=== PATIENT | female | born 1965 | race Caucasian/White ===

== ENCOUNTER → 2018-04-20 14:51 | Outpatient (CLI) | payer OTHER, SELFPAY ==
--- NOTE | 2018-04-20 14:53 | DI.MRI.S_ITS ---
PROCEDURE: MR CERVICAL SPINE WO CON INDICATIONS: Neck and upper back pain TECHNIQUE: Noncontrast sagittal T1 spin echo and T2 fast spin echo, sagittal STIR, foraminal oblique sagittal T2 fast spin echo, and axial gradient echo or T2 fast spin echo through the cervical spine. COMPARISON: None. FINDINGS: Image quality: Excellent. Alignment and Curvature: There is loss of normal cervical lordosis, mild grade 1 retrolisthesis of C6 on C7, and otherwise normal bony alignment. Bone Marrow: Marrow demonstrates normal overall signal. Mild reactive signal within the endplates adjacent to the C6-C7 intervertebral disc. Spinal Cord: Visualized spinal cord has normal size and signal. No cerebellar tonsillar herniation. Paraspinous Soft Tissues: No paravertebral masses. Prevertebral soft tissues are normal in thickness. C2-C3: Moderate disc desiccation. No significant canal stenosis. Mild right foraminal stenosis. No left foraminal stenosis. C3-C4: Moderate disc desiccation and mild diffuse disc bulge with superimposed broad-based central and right far lateral protrusion. Bilateral facet hypertrophy. Moderate right and mild left foraminal stenosis. C4-C5: Mild disc desiccation and diffuse disc bulge. Mild bilateral facet and uncovertebral hypertrophy. Mild canal stenosis. Moderate left and mild right foraminal stenosis. C5-C6: Moderate disc desiccation and mild diffuse disc bulge. Bilateral facet and uncovertebral hypertrophy. Mild canal stenosis. Mild foraminal stenosis bilaterally. C6-C7: Moderate disc height loss and desiccation, as well as moderate diffuse disc bulge/osteophyte. Bilateral moderate facet and uncovertebral hypertrophy. Moderate canal stenosis. Severe left and moderate right foraminal stenosis. C7-T1: Mild disc desiccation and diffuse disc bulge. Bilateral facet hypertrophy. Mild canal stenosis. No foraminal stenosis. IMPRESSION: 1. Multilevel degenerative disc and facet disease, as well as uncovertebral hypertrophy. 2. Multilevel canal stenoses, worst at C6-C7. 3. Multilevel foraminal stenoses, worst at C3-C4 on the left, and at C6-C7 left greater than right. Dictated by: Salome Benitez M.D. on 04/20/2018 at 16:59 Approved by: Salome Benitez M.D. on 04/20/2018 at 17:02
== END ==
PROVIDERS: PCP Family Medicine; Visit Provider Family Medicine
DX: M50.31 Other cervical disc degeneration, high cervical region (principal); M48.02 Spinal stenosis, cervical region; M54.6 Pain in thoracic spine
CPT/HCPCS: 72141

== ENCOUNTER → 2018-06-27 16:16 | Outpatient (CLI) | payer OTHER, SELFPAY | DX: Z23 Encounter for immunization (principal) | CPT/HCPCS: 90471; 90686 ==

== ENCOUNTER → 2018-09-28 09:35 | Outpatient (CLI) | payer OTHER, SELFPAY ==
[2018-09-28 10:18] LABS: Influenza A and B by PCR Rapid Negative (Negative)
== END ==
PROVIDERS: PCP Family Medicine; Visit Provider Family Medicine
DX: J06.9 Acute upper respiratory infection, unspecified (principal)
CPT/HCPCS: 87400

== ENCOUNTER → 2019-01-10 07:30 | Outpatient (CLI) | payer OTHER, SELFPAY ==
--- NOTE | 2019-01-10 | DI.MG.S_ITS ---
BILATERAL DIGITAL SCREENING MAMMOGRAM 3D/2D WITH CAD: 01/10/2019 CLINICAL: Routine screening. Family history of breast cancer. Comparison is made to exams dated: 01/05/2018 mammogram, 12/23/2016 mammogram, and 11/06/2015 mammogram - [facility]. The tissue of both breasts is heterogeneously dense. This may lower the sensitivity of mammography. Current study was also evaluated with a Computer Aided Detection (CAD) system. No significant masses, calcifications, or other findings are seen in either breast. There has been no significant interval change. IMPRESSION: NEGATIVE There is no mammographic evidence of malignancy. A 1 year screening mammogram is recommended. This exam was interpreted at Station ID: [id number]. NOTE: For mammograms, a report in lay terms will be sent to the patient. Approximately 15% of breast malignancies will not be visualized mammographically. In the management of a palpable breast mass, a negative mammogram must not discourage biopsy of a clinically suspicious lesion. Electronically Signed By: Mary ferrara/néstor:01/10/2019 11:42:05 letter sent: Normal Exam ACR BI-RADS Category 1: Negative 3341F
== END ==
PROVIDERS: PCP Family Medicine; Visit Provider Family Medicine
DX: Z12.31 Encounter for screening mammogram for malignant neoplasm of breast (principal)
CPT/HCPCS: 77063; 77067

== ENCOUNTER → 2019-07-03 11:28 | Outpatient (CLI) | payer OTHER, SELFPAY | PROVIDERS: PCP Family Medicine | DX: Z23 Encounter for immunization (principal) | CPT/HCPCS: 90471; 90686 ==

== ENCOUNTER → 2019-11-02 06:41 | Outpatient (CLI) | payer OTHER, SELFPAY ==
--- NOTE | 2019-11-02 06:42 | DI.CT.S_ITS ---
PROCEDURE: CT HEAD/BRAIN WO/W CON INDICATIONS: new onset head ach with pressure between eye TECHNIQUE: 4.5 mm thick angled axial sections acquired from the foramen magnum to the vertex before and after the administration of intravenous contrast, with coronal and sagittal reformats. For radiation dose reduction, the following was used: automated exposure control, adjustment of mA and/or kV according to patient size. COMPARISON: [facility], , CHEST 2 VIEW, 10/18/2014, 9:17. FINDINGS: Image quality: Excellent. CSF Spaces: Basal cisterns are patent. No extra-axial fluid collections. Ventricles are normal in size and shape. Brain: No midline shift. No intracranial bleeds or masses. No abnormal intracranial enhancement. Baires-white interface appears normal. Skull and face: Calvarium and visualized facial bones appear intact, without suspicious lesions. Sinuses: Visualized sinuses and mastoids are clear. IMPRESSION: Source of headache and pressure sensation is not identified, if unusual symptoms persist followup by a subsequent MR scanning to include intracranial MR angiogram may be warranted. Dictated by: Gregory Ramirez M.D. on 11/02/2019 at 8:46 Approved by: Gregory Ramirez M.D. on 11/02/2019 at 8:50
== END ==
PROVIDERS: PCP Family Medicine; Visit Provider Family Medicine
DX: R51 Headache (principal)
CPT/HCPCS: 70470; Q9967

== ENCOUNTER 2020-02-20 20:44 | Emergency (ER) | payer OTHER, SELFPAY ==
[2020-02-20 21:03] VITALS: BP 168/74; PULSE 72; RESP 16; TEMP 36.6; O2SAT 98; BMI 29.5
[2020-02-20] MEDS: LIDO 1%/SOD BICARB 8.4% (10ML) 10 ML SYRINGE INJ (21:24)
--- NOTE | 2020-02-20 21:39 | ED.SKABFB ---
HPI - Skin/Abscess/Foreign Bdy General Chief complaint: Skin/Abscess/Foreign Body Stated complaint: left arm infection Time Seen by Provider: 02/20/20 21:03 Source: patient Mode of arrival: Family Vehicle Limitations: no limitations History of Present Illness HPI narrative: 54-year-old woman who recently had a melanoma removed by a head athletic trainer/strength coach on her left arm. There is an approximately 5 cm nicely healing lesion with a bit of erythema at the distal portion of it. For the last 3 hours she has noticed increasing swelling and slight fluctuance and he can see small bit of the absorbable suture just under the skin surface. Related Data Home Medications Medication Instructions Recorded Confirmed MULTIVITAMIN (Multivitamin 0 PO Q DAY #0 05/01/07 01/02/20 -) CHOLECALCIFEROL (VITAMIN D) 2,000 units PO QDAY #0 11/01/12 01/02/20 Previous Rx's Medication Instructions Recorded estradiol 10 mcg vaginal tablet 10 mcg VAGINAL 2XW #24 tab 02/08/19 Allergies Allergy/AdvReac Type Severity Reaction Status Date / Time chlorhexidine [CHLORHEXIDINE] Allergy Intermediate RASH Verified 01/02/20 09:44 oxycodone [OXYCODONE] Allergy Intermediate NAUSEA/DIZZ Verified 01/02/20 09:44 INESS Review of Systems Review of Systems Narrative: Pertinent positive and negative findings as per HPI Remainder of review of systems is otherwise unremarkable for Constitutional: Fevers, chills, weakness CV: Chest pain, palpitations, dyspnea on exertion Respiratory: Cough, wheeze, dyspnea GI: Nausea, vomiting, diarrhea, Patient History Surgical History History of bilateral salpingo-oophorectomy (BSO) History of left salpingo-oophorectomy (Resolved 2008) History of spinal fusion (Resolved) Status post vaginal hysterectomy (Resolved) Social History marital status: Smoking Status: Never smoker alcohol intake: current substance use type: does not use Smoking Status: Never smoker alcohol intake frequency: 0-2 drinks per day Substance Use Type: does not use Exam Narrative Exam Narrative: General: Alert appropriate in no acute distress Respiratory: Able to speak in full sentences, no obvious respiratory distress Skin: No obvious rashes, warm and dry Neurologic: Grossly intact no obvious asymmetries or abnormalities Psych, appropriate insight and affect, cooperative Extremity: Nicely healing surgical site left upper arm with 3 mm of increasing erythema and fluctuance at the very distal end. No surrounding cellulitis Initial Vital Signs Initial Vital Signs: Vital Signs Temperature 97.8 F 02/20/20 21:03 Pulse Rate 72 02/20/20 21:03 Respiratory Rate 16 02/20/20 21:03 Blood Pressure 168/74 H 02/20/20 21:03 Pulse Oximetry 98 02/20/20 21:03 Procedures Abscess I/D I&D #1: Site: upper extremity Side (if applicable): left Local Anesthetic: lidocaine 1% and with bicarb Amount of anesthesia used (mL): 1 Technique: other (An 18 gauge needle was used to open the distal end of the prior surgical site. Small amount of suture that had not yet dissolved was removed and minor amount of purulent discharge was expressed) Amount of fluid expressed (mL): 1 Irrigation: No Packing used?: none Course Orders Ordered: Discontinued Medications Lidocaine/Sodium Bicarbonate (Buffered Lidocaine 10 Ml Syr) 10 ml INJ NOW ONE Stop: 02/20/20 21:14 Last Admin: 02/20/20 21:24 Dose: 10 ml [facility] Vital Signs Vital signs: Vital Signs - 8 hr 02/20/20 21:03 Temperature 97.8 F Pulse Rate 72 Respiratory Rate 16 Blood Pressure 168/74 H Pulse Oximetry 98 MDM - Skin/Abscess/Foreign Bdy Medical Records Attestation: I reviewed the patient's medical records. MDM Narrative Medical decision making narrative: Minor super in fissural infection at the distal end of melanoma excision site. Area is open small amount of material is expressed, small amount of suture material is removed patient tolerated procedure well no surrounding cellulitis and antibiotics are not felt to be appropriate in this situation. Patient is safe for home discharge Discharge Plan Departure Patient Disposition: Home Clinical Impression: Abscess of skin or subcutaneous tissue Qualifiers: Site of cutaneous abscess: extremity Site of cutaneous abscess of extremity: upper extremity Laterality: left Qualified Code(s): L02.414 - Cutaneous abscess of left upper limb Instructions: DI for Cellulitis -- Adult Activity Restrictions/Additional Instructions: Thank you for coming in The bottom end of your surgical site is beginning to develop a small infection around the bit of suture that is closer to the skin. We were able to anesthetize the area open the bottom end of the wound and take the small bit of suture out and get a minor amount of purulence drainage out as well. It looks much better after being opened up slightly. There is no cellulitis at this time. Believe it was a simple localized infection around that tiny bit of retained suture and should heal up nicely. The remainder of the wound is perfect. If you notice increasing redness, increasing drainage, increasing pain none of those would be expected and I would suggest you come back for further evaluation. I hope this heals up completely. I am glad the margins were small and there is no additional treatment that you need for this melanoma. Prescriptions: No Action MULTIVITAMIN (Multivitamin -) 0 PO Q DAY Qty: 0 RF: 0 CHOLECALCIFEROL (VITAMIN D) 2,000 units PO QDAY Qty: 0 RF: 0 estradiol [Vagifem] 10 mcg tablet 10 mcg Vaginal 2XW Qty: 24 RF: 3 Referrals: Saman Barry MD [Primary Care Provider] -
[2020-02-20 21:50] VITALS: BP 119/74; PULSE 78; RESP 15; O2SAT 99
== END 2020-02-20 21:51 | disposition home or self-care (01) ==
PROVIDERS: Emergency Provider Emergency Medicine; PCP Family Medicine
DX: L02.414 Cutaneous abscess of left upper limb (principal)
CPT/HCPCS: 10060; 99283

== ENCOUNTER → 2020-03-03 07:38 | Outpatient (CLI) | payer OTHER, SELFPAY ==
--- NOTE | 2020-03-03 | DI.MG.S_ITS ---
BILATERAL DIGITAL SCREENING MAMMOGRAM 3D/2D WITH CAD: 03/03/2020 CLINICAL: Routine screening. Family history of breast cancer. Comparison is made to exams dated: 01/10/2019 mammogram, 01/05/2018 mammogram, and 12/23/2016 mammogram - [facility]. The tissue of both breasts is heterogeneously dense. This may lower the sensitivity of mammography. Current study was also evaluated with a Computer Aided Detection (CAD) system. No significant masses, calcifications, or other findings are seen in either breast. There has been no significant interval change. IMPRESSION: NEGATIVE There is no mammographic evidence of malignancy. A 1 year screening mammogram is recommended. This exam was interpreted at Station ID: [id number]. NOTE: For mammograms, a report in lay terms will be sent to the patient. Approximately 15% of breast malignancies will not be visualized mammographically. In the management of a palpable breast mass, a negative mammogram must not discourage biopsy of a clinically suspicious lesion. Electronically Signed By: Garry rios/néstor:03/03/2020 08:32:38 letter sent: Normal Exam ACR BI-RADS Category 1: Negative 3341F
== END ==
PROVIDERS: PCP Family Medicine; Referring Provider Family Medicine; Visit Provider Family Medicine
DX: Z12.31 Encounter for screening mammogram for malignant neoplasm of breast (principal); Z80.3 Family history of malignant neoplasm of breast
CPT/HCPCS: 77063; 77067

== ENCOUNTER 2020-05-21 20:54 | Emergency (ER) | payer OTHER, SELFPAY ==
[2020-05-21 20:59] VITALS: BP 137/85; PULSE 87; RESP 22; TEMP 37.2; O2SAT 96
--- NOTE | 2020-05-21 21:18 | ED.GENADULT ---
HPI - General Adult General Chief complaint: Abdominal Pain Stated complaint: kidney pain Time Seen by Provider: 05/21/20 21:12 Source: patient Mode of arrival: Ambulatory Limitations: no limitations History of Present Illness HPI narrative: Patient is a 55-year-old female here for evaluation of left-sided flank/side pain. She states that the pain that brought her in today is been going on for the past 2 days however she has had similar pain however not as intense in the same area off and on for the past month. She does not know any specific incident that made her pain get worse. She has had a kidney stone in the past and she does state this feels somewhat like kidney stone. She has had some urinary urgency/frequency but no dysuria. No fevers. No vomiting. No rashes. She states the past 2 days her pain has been ?unrelenting ?states that normally she can rest in the symptoms improve over this is not happened during this timeframe. Related Data Home Medications Medication Instructions Recorded Confirmed MULTIVITAMIN (Multivitamin 0 PO Q DAY #0 05/01/07 01/02/20 -) CHOLECALCIFEROL (VITAMIN D) 2,000 units PO QDAY #0 11/01/12 01/02/20 Previous Rx's Medication Instructions Recorded estradiol 10 mcg vaginal tablet 10 mcg VAGINAL 2XW #24 tab 02/08/19 Allergies Allergy/AdvReac Type Severity Reaction Status Date / Time chlorhexidine [CHLORHEXIDINE] Allergy Intermediate RASH Verified 01/02/20 09:44 oxycodone [OXYCODONE] Allergy Intermediate NAUSEA/DIZZ Verified 01/02/20 09:44 INESS Review of Systems Constitutional Constitutional: Denies fever(s) Cardiovascular Cardiovascular: Denies chest pain and Denies dyspnea Respiratory Respiratory: Denies dyspnea Gastrointestinal Comments: Left-sided flank pain Genitourinary Genitourinary: Reports urinary urgency Genitourinary: Reports urinary urgency Musculoskeletal Comments: Left-sided flank pain Integumentary/Breasts Skin/Breast: Denies rash Neurologic Neurologic: Denies behavioral changes Psychiatric Psychiatric: Denies behavioral changes Hematologic/Lymphatic Comments: Not on anticoagulation Allergic/Immunologic Allergic/Immunologic: Denies urticaria Patient History Medical History Degenerative disc disease, cervical (Inactive) Kidney stones (Acute) Palpitations (12/06/11) Surgical History H/O melanoma excision (Inactive) History of bilateral salpingo-oophorectomy (BSO) History of left salpingo-oophorectomy (Resolved 2008) History of spinal fusion (Resolved) Status post vaginal hysterectomy (Resolved) Social History marital status: Smoking Status: Never smoker alcohol intake: current substance use type: does not use Smoking Status: Never smoker alcohol intake frequency: 0-2 drinks per day Substance Use Type: does not use Exam Initial Vital Signs Initial Vital Signs: Vital Signs Temperature 99.0 F 05/21/20 20:59 Pulse Rate 87 05/21/20 20:59 Respiratory Rate 22 05/21/20 20:59 Blood Pressure 137/85 05/21/20 20:59 Pulse Oximetry 96 05/21/20 20:59 Const General: cooperative and No comfortable (Uncomfortable) Limitations: mental status not altered HENMT Head: normal to inspection and normocephalic Resp Effort & Inspection: normal respiratory effort Cardio Rate: regular rate GI Inspection: non-distended Palpation: soft, No firm and No tender Back/Spine/Pelvis Back: No CVA tenderness Skin Lesions: no lesions Rashes: no rashes Neuro General: patient alert and patient awake Cognition: normal cognition Speech: speech normal Extrem General: normal to inspection Psych Appearance: grossly normal and well kempt Course Orders Ordered: ED Orders 05/21/20 21:09 Basic Metabolic Panel Stat Complete Blood Count AUTO DIFF Stat 05/21/20 21:20 CT kidney ureter bladder (KUB) Stat 05/21/20 22:19 Urine Microscopic Stat Discontinued Medications Hydrocodone Bitart/Acetaminophen (Vicodin 5/325 Prepack) 1 bottle MISC SEEINSTR ONE Stop: 05/21/20 22:40 Last Admin: 05/21/20 22:46 Dose: 1 bottle Documented by: FREDO Hydromorphone HCl (Dilaudid) 1 mg IV NOW ONE Stop: 05/21/20 21:20 Last Admin: 05/21/20 21:35 Dose: 1 mg Documented by: TAYLOR Ketorolac Tromethamine (Toradol) 30 mg IV NOW ONE Stop: 05/21/20 21:20 Last Admin: 05/21/20 21:34 Dose: 30 mg Documented by: TAYLOR Ondansetron HCl (Zofran) 4 mg IV NOW ONE Stop: 05/21/20 21:20 Last Admin: 05/21/20 21:35 Dose: 4 mg Documented by: TAYLOR Vital Signs Vital signs: Vital Signs - 8 hr 05/21/20 20:59 05/21/20 21:43 05/21/20 21:44 Temperature 99.0 F Pulse Rate 87 67 74 Respiratory Rate 22 Blood Pressure 137/85 131/76 Pulse Oximetry 96 94 94 05/21/20 22:04 05/21/20 22:30 Temperature Pulse Rate 77 67 Respiratory Rate Blood Pressure Pulse Oximetry 95 96 Medical Decision Making Lab Data Lab results reviewed: Yes I reviewed the patient's lab results. Result diagrams: 05/21/20 21:09 05/21/20 21:09 Labs: Lab Results 05/21/20 05/21/20 05/21/20 Range/Units 21:09 21:09 22:19 WBC 4.8 (4.5-11.0) X10^3/uL RBC 4.34 (4.0-5.2) X10^6/uL Hgb 13.7 (12.0-16.0) g/dL Hct 40.7 (36-46) % MCV 93.8 (80-100) fL MCH 31.6 (26-34) PG MCHC 33.7 (30-36) % RDW 13.6 (11.6-14.8) % Plt Count 200 (150-400) X10^3/uL Neut % (Auto) 49.4 L (50-75) % Lymph % (Auto) 40.0 (25-40) % [place] % (Auto) 7.8 (3-14) % Eos % (Auto) 2.2 (2-4) % Baso % (Auto) 0.6 (0-2) % Neut # (Auto) 2300 (1841-8237) /uL Lymph # (Auto) 1900 (0000-5942) /uL [place] # (Auto) 400 (0-900) /uL Eos # (Auto) 100 (0-450) /uL Baso # (Auto) 0 (0-100) /uL Sodium 136 L (137-145) mmol/L Potassium 4.1 (3.4-5.1) mmol/L Chloride 102 (98-107) mmol/L Carbon Dioxide 27 (22-32) mmol/L BUN 17 (7-17) mg/dL Creatinine 0.74 (0.52-1.04) mg/dL Estimated GFR > 60.0 (>60) mL/min BUN/Creatinine Ratio 23.0 H (6-22) Glucose 95 (70-100) mg/dL Calcium 9.5 (8.4-10.2) mg/dL Urine RBC None seen (0-5/HPF) Urine WBC 5-10/hpf H (0-5/HPF) Ur Squamous Epith Cells 5-10 /hpf H (0-5/HPF) Urine Bacteria None seen (None) Ur Culture Indicated? Cult not indicated Urine Dip Bedside Urine Glucose Negative Bedside Urine Bilirubin - Negative Bedside Urine Ketone + 15 Urine Specific [place] 1.015 Bedside Urine Occult Blood - Negative Bedside Urine pH 6.0 Bedside Urine Protein - Negative Bedside Urine Urobilinogen - Negative Bedside Urine Nitrite - Negative Bedside Urine Leukocytes + 70 Esterase Point of care testing: Urine Dip Bedside Urine Glucose Negative Bedside Urine Bilirubin - Negative Bedside Urine Ketone + 15 Urine Specific [place] 1.015 Bedside Urine Occult Blood - Negative Bedside Urine pH 6.0 Bedside Urine Protein - Negative Bedside Urine Urobilinogen - Negative Bedside Urine Nitrite - Negative Bedside Urine Leukocytes + [address] scan - abdomen/pelvis: Radiologist's Impression: [address] [address] [address] Scan Report Signed Patient: Radha Dickens [facility]#: [id number] : 1965Acct:[id number] Age/Sex: 55 / FDate of Service: 05/21/20 Loc: ED Accession Number: [id number] Procedure: CT kidney ureter bladder (KUB) Ordering Provider: Rainer Cunha D.O. PROCEDURE: CT KIDNEY URETER BLADDER (KUB) INDICATIONS: L ninfa pain concern for stone TECHNIQUE: Noncontrast 5 mm thick sections acquired from the diaphragms to the symphysis. 5 mm thick coronal and sagittal reformats were then performed. For radiation dose reduction, the following was used: automated exposure control, adjustment of mA and/or kV according to patient size. COMPARISON: None. FINDINGS: Image quality: Excellent. Lung bases: Bibasilar scarring/atelectasis is seen. Heart size is normal. Urinary system: Both kidneys are normal in size. No kidney stones. No hydronephrosis or perinephric fat stranding. Both ureters appear non-dilated throughout their expected courses. Tiny phleboliths are noted in bilateral lower pelvis. Bladder wall thickness is normal; no calcified bladder stones. Other solid organs: Liver is normal in size. 9 millimeter hypodensity is seen in left hepatic lobe and likely represent attic cysts. Gallbladder contains a 2.3 x 1.4 centimeter stone in its dependent portion. No gallbladder wall thickening or pericholecystic edema.. Pancreas is normal in contours. Spleen is normal in size. No adrenal nodules. Peritoneum and bowel: Unenhanced bowel loops demonstrate normal wall thickness and caliber. No free fluid or air. Small hiatal hernia is seen. Nodes and vessels: No retroperitoneal or mesenteric adenopathy by size criteria. Aorta and inferior vena cava are normal in caliber. Abdominal wall: No ventral hernias. Pelvis: No free pelvic fluid. No inguinal hernias or adenopathy. Bones: No suspicious bony lesions. No vertebral body compression fractures. Degenerative disc disease throughout lower thoracic and lumbar spine is seen. Mild to moderate levoscoliosis centered at L3-4 level is seen. IMPRESSION: 1. No renal stone or hydronephrosis. No gross abnormality is seen in bilateral ureters and urinary bladder. 2. No bowel obstruction. No bowel wall thickening. No free fluid or free air. 3. Suggestion of 9 mm left hepatic cyst. 4. Cholelithiasis, no CT evidence of acute cholecystitis. Dictated by: Vincent Valle M.D. on 05/21/2020 at 21:39 Approved by: Vincent Valle M.D. on 05/21/2020 at 21:43 MDM Narrative Medical decision making narrative: Has had a history of kidney stones and she states this feels like prior kidney stones however given the fact that the symptoms have been going on for the past several weeks with just worsened over the past couple days this does not entirely fit with a kidney stone type history. A CT scan was obtained which showed no acute pathology. No signs of surgical issues or infectious issues. Her urine is unremarkable. Low suspicion for pyelonephritis. Kidney functions unremarkable. Risk for large lytes are unremarkable. She has no skin changes concerning for zoster. I do suspect the symptoms are musculoskeletal in origin. No indication for admission or surgical or medical consultation. Will send home with symptom treatment. No indication for antibiotics. Patient was given return precautions. She expressed understanding and agreement. Discharge Plan Departure Patient Disposition: Home Clinical Impression: Acute left flank pain Discharge Date/Time: 05/21/20 22:53 Instructions: DI for Flank Pain Activity Restrictions/Additional Instructions: Take the medication as directed. You can also take ibuprofen and continue to use heat/ice as needed. Keep your scheduled follow-up appointment with your primary provider. Return to the emergency department for any new or worsening symptoms Prescriptions: No Action MULTIVITAMIN (Multivitamin -) 0 PO Q DAY Qty: 0 RF: 0 CHOLECALCIFEROL (VITAMIN D) 2,000 units PO QDAY Qty: 0 RF: 0 estradiol [Vagifem] 10 mcg tablet 10 mcg Vaginal 2XW Qty: 24 RF: 3 Referrals: Saman Barry MD [Primary Care Provider] -
--- NOTE | 2020-05-21 21:28 | PC.NURSE ---
States she can not urinate at this time.
[2020-05-21 21:30] LABS: Add Manual Diff / Slide Review NO; Basophils Absolute Auto 0 /uL (0-100); Basophils Percent Auto 0.6 % (0-2); Eosinophils Absolute Auto 100 /uL (0-450); Eosinophils Percent Auto 2.2 % (2-4); Hematocrit 40.7 % (36-46); Hemoglobin 13.7 g/dL (12.0-16.0); Lymphocytes Absolute Auto 1900 /uL (1100-4500); Mean Corpuscular HGB Conc 33.7 % (30-36); Mean Corpuscular Hemoglobin 31.6 PG (26-34); Mean Corpuscular Volume 93.8 fL (80-100); Monocytes Absolute Auto 400 /uL (0-900); Monocytes Percent Auto 7.8 % (3-14); Neutrophils Absolute Auto 2300 /uL (1500-7000); Neutrophils Percent Auto 49.4 % (50-75); Platelet Count 200 X10^3/uL (150-400); Red Blood Cell Count 4.34 X10^6/uL (4.0-5.2); Red Cell Distribution Width 13.6 % (11.6-14.8); White Blood Cell Count 4.8 X10^3/uL (4.5-11.0)
[2020-05-21 21:33] LABS: Blood Urea Nitrogen 17 mg/dL (7-17); Calcium 9.5 mg/dL (8.4-10.2); Carbon Dioxide 27 mmol/L (22-32); Chloride 102 mmol/L (98-107); Estimated Glomerular Filt Rate > 60.0 mL/min (>60); Glucose 95 mg/dL (70-100); HEMOLYSIS 28 (0-50); Potassium 4.1 mmol/L (3.4-5.1); Sodium 136 mmol/L (137-145)
[2020-05-21] MEDS: KETOROLAC 60 MG/2 ML VIAL 30 MG IV (21:34)
[2020-05-21] MEDS: ONDANSETRON 4 MG/2 ML INJ IV (21:35)
[2020-05-21] MEDS: HYDROMORPHONE 1 MG INJ IV (21:35)
[2020-05-21 21:43] VITALS: PULSE 67; O2SAT 94
[2020-05-21 21:44] VITALS: BP 131/76; PULSE 74; O2SAT 94
[2020-05-21 22:04] VITALS: PULSE 77; O2SAT 95
[2020-05-21 22:21] LABS: Bacteria Urine None Seen; RBC Urine None Seen (0-5/HPF)
[2020-05-21 22:28] LABS: WBC Urine 5-10/HPF (0-5/HPF)
[2020-05-21 22:29] LABS: Culture Indicated Urine Cult Not Indicated; Squamous Epithelial Cell Urine 5-10 /HPF (0-5/HPF)
[2020-05-21 22:30] VITALS: PULSE 67; O2SAT 96
[2020-05-21] MEDS: HYDROCODONE/ACET 5/325 PREPACK 1 BOTTLE MISC (22:46)
== END 2020-05-21 22:53 | disposition home or self-care (01) ==
PROVIDERS: Emergency Provider Emergency Medicine; PCP Family Medicine
DX: R39.15 Urgency of urination (principal); R10.9 Unspecified abdominal pain; Z87.442 Personal history of urinary calculi
CPT/HCPCS: 36415; 74176; 80048; 81003; 81015; 85025; 96374; 96375; 99284; J1170; J1885; J2405

== ENCOUNTER → 2020-05-29 07:27 | Outpatient (CLI) | payer OTHER, SELFPAY ==
--- NOTE | 2020-05-29 07:29 | DI.RAD.S_ITS ---
PROCEDURE: XR THORACIC SPINE 3V INDICATIONS: left flank pain TECHNIQUE: 3 views of the thoracic spine were acquired. COMPARISON: None. FINDINGS: Bones: No fractures or dislocations. No suspicious bony lesions. Twelve pairs of ribs are noted, and appear intact where visualized. There is mild to moderate degenerative disc disease along the thoracic spine, and slight convex rightward scoliosis centered at the lower 3rd of the thoracic spine. Soft tissues: No paravertebral stripe thickening. IMPRESSION: [id number] degenerative disc disease along the thoracic spine found compression fracture. Slight convex rightward scoliosis centered at the lower 3rd of the thoracic spine. Dictated by: Gregory Ramirez M.D. on 05/29/2020 at 8:33 Approved by: Gregory Ramirez M.D. on 05/29/2020 at 8:35
== END ==
PROVIDERS: PCP Family Medicine; Referring Provider Family Medicine; Visit Provider Family Medicine
DX: M51.34 Other intervertebral disc degeneration, thoracic region (principal); M41.84 Other forms of scoliosis, thoracic region
CPT/HCPCS: 72072

== ENCOUNTER → 2020-06-04 10:42 | Outpatient (CLI) | payer OTHER, SELFPAY ==
--- NOTE | 2020-06-04 10:43 | DI.CT.S_ITS ---
PROCEDURE: CT ABDOMEN PELVIS W CON INDICATIONS: Left flank pain TECHNIQUE: After the administration of oral and intravenous contrast, 5 mm thick sections acquired from the diaphragms to the symphysis. 5 mm thick coronal and sagittal reformats were performed. For radiation dose reduction, the following was used: automated exposure control, adjustment of mA and/or kV according to patient size. COMPARISON: [facility], CT, ABDOMEN/PELVIS WITH CONTRAST, 06/20/2009, 9:20. [facility], CT, ABDOMEN/PELVIS WITH CONTRAST, 10/04/2008, 17:46. FINDINGS: Image quality: Excellent. ABDOMEN: Lung bases: Lung bases are clear. Heart size is normal. Solid organs: Liver is normal in size and enhancement. Gallbladder appears normal. Biliary system is non-dilated. Pancreas enhances normally. Spleen is normal in size and enhancement. No adrenal nodules. Kidneys are normal in size and enhancement, without hydronephrosis. Peritoneum and bowel: Stomach, small bowel, and colon loops are normal in caliber and wall thickness. No free fluid or air. Nodes and vessels: No retroperitoneal or mesenteric adenopathy. Aorta and inferior vena cava are normal in caliber. Miscellaneous: No ventral hernias. PELVIS: Genitourinary: Bladder wall thickness is normal. Prior hysterectomy, no operative complication seen. Miscellaneous: No inguinal hernias or adenopathy. There is no source of left lower quadrant flank pain identified. Bones: No suspicious bony lesions. Note is made of postoperative changes at the lumbosacral spine, without fusion devices. No vertebral body compression fractures. IMPRESSION: Reported flank pain on the left, no sign of urinary tract inflammation or calculus. Source of current pain syndrome is not identified. Prior lumbosacral spine surgical procedures have been performed, without visualized evidence of operative complication. Depending on the clinical status follow-up by MR scanning may be warranted for more accurate assessment of the LS spine. Dictated by: Gregory Ramirez M.D. on 06/04/2020 at 15:17 Approved by: Gregory Ramirez M.D. on 06/04/2020 at 15:20
== END ==
PROVIDERS: PCP Family Medicine; Referring Provider Family Medicine; Visit Provider Family Medicine
DX: R10.32 Left lower quadrant pain (principal); M54.6 Pain in thoracic spine; Z90.710 Acquired absence of both cervix and uterus
CPT/HCPCS: 74177; Q9967

== ENCOUNTER → 2020-07-03 | Outpatient (CLI) | payer OTHER, SELFPAY | PROVIDERS: PCP Family Medicine; Referring Provider Internal Medicine; Visit Provider Internal Medicine | DX: Z23 Encounter for immunization (principal) | CPT/HCPCS: 90471; 90686 ==

== ENCOUNTER → 2020-10-02 11:31 | Outpatient (CLI) | payer OTHER, SELFPAY ==
[2020-10-02] MEDS: COVID-19 VACC(MODERNA-1)/PF 100 MCG/0.5 ML VIAL IM (12:01)
== END ==
PROVIDERS: PCP Family Medicine; Visit Provider Internal Medicine
DX: Z23 Encounter for immunization (principal)
CPT/HCPCS: 0011A; 91301

== ENCOUNTER → 2020-10-14 10:03 | Outpatient (CLI) | payer OTHER, SELFPAY ==
[2020-10-14 10:31] LABS: COVID19 -Nasal RAPID Negative (Negative)
[2020-10-14 11:55] LABS: Bacteria Urine None Seen; RBC Urine None Seen (0-5/HPF); WBC Urine None Seen (0-5/HPF)
[2020-10-14 12:16] LABS: Adenovirus Not Detected (Not Detect); Bordetella pertussis Not Detected (Not Detect); Chlamydophila pneumoniae Not Detected (Not Detect); Coronavirus 229E Not Detected (Not Detect); Coronavirus HKU1 Not Detected (Not Detect); Coronavirus NL 63 Not Detected (Not Detect); Coronavirus OC43 Not Detected (Not Detect); Human Metapneumovirus Not Detected (Not Detect); Human Rhinovirus/Enterovirus Not Detected (Not Detect); Influenza A Not Detected (Not Detect); Influenza B Not Detected (Not Detect); Mycoplasma pneumoniae Not Detected (Not Detect); Parainfluenza Virus 1 Not Detected (Not Detect); Parainfluenza Virus 2 Not Detected (Not Detect); Parainfluenza Virus 3 Not Detected (Not Detect); Parainfluenza Virus 4 Not Detected (Not Detect); Respiratory Syncytial Virus Not Detected (Not Detect); SARS- CoV-2 Not Detected (Not Detecte)
[2020-10-14 13:11] LABS: Add Manual Diff / Slide Review NO; Basophils Absolute Auto 0 /uL (0-100); Basophils Percent Auto 0.4 % (0-2); Eosinophils Absolute Auto 0 /uL (0-450); Eosinophils Percent Auto 0.7 % (2-4); Hemoglobin 12.9 g/dL (12.0-16.0); Lymphocytes Absolute Auto 900 /uL (1100-4500); Lymphocytes Percent Auto 20.3 % (25-40); Mean Corpuscular HGB Conc 33.9 % (30-36); Mean Corpuscular Hemoglobin 30.9 PG (26-34); Mean Corpuscular Volume 91.1 fL (80-100); Monocytes Absolute Auto 400 /uL (0-900); Monocytes Percent Auto 8.9 % (3-14); Neutrophils Absolute Auto 3200 /uL (1500-7000); Neutrophils Percent Auto 69.7 % (50-75); Platelet Count 151 X10^3/uL (150-400); Red Blood Cell Count 4.17 X10^6/uL (4.0-5.2); White Blood Cell Count 4.5 X10^3/uL (4.5-11.0)
[2020-10-14 13:58] LABS: Procalcitonin 0.83 ng/mL (<0.5)
[2020-10-14 15:49] LABS: Appearance Urine UA CLEAR; Bilirubin Urine UA NEGATIVE (NEGATIVE); Color Urine UA YELLOW; Glucose Urine UA NEGATIVE (Negative); Ketones Urine UA 1+ (NEGATIVE); Leukocyte Esterase Urine UA NEGATIVE (NEGATIVE); Nitrite Urine UA NEGATIVE (Negative); Occult Blood Urine UA TRACE-INTACT (Negative); Protein Urine UA NEGATIVE (Negative); Urobilinogen Urine UA 0.2 E.U./dL (0.2)
[2020-10-14 15:53] LABS: pH Urine UA 6.5 (4.5-8.0)
[2020-10-14 15:54] LABS: Culture Indicated Urine Cult Not Indicated; Urine Comments Microscopic Normal
== END ==
PROVIDERS: PCP Family Medicine; Referring Provider Family Medicine; Visit Provider Family Medicine
DX: R50.9 Fever, unspecified (principal); Z20.822 Contact with and (suspected) exposure to COVID-19; R52 Pain, unspecified
CPT/HCPCS: 36415; 81001; 84145; 85025; 87633; 87635

== ENCOUNTER 2020-10-16 07:15 | Inpatient (IN) | payer OTHER, SELFPAY ==
[2020-10-16] VITALS (16 sets, daily range): BP systolic 94–129; BP diastolic 51–72; PULSE 68–82; RESP 15–17; TEMP 36–38; O2SAT 93–99; BMI 26.6
[2020-10-16] MEDS: SODIUM CHLORIDE 0.9% 1,000 ML 1000 ML IV ×2 (07:45→09:38)
--- NOTE | 2020-10-16 07:47 | ED_ITS ---
HPI - Back Pain/Injury General Chief Complaint: Back Pain/Injury Stated Complaint: Back pain Time Seen by Provider: 10/16/20 07:29 Source: patient Limitations: no limitations History of Present Illness HPI Narrative: Patient is a 55-year-old female with history of prior back surgery presenting with fever body aches chills severe back pain ongoing the last 5 days. She does have urinary frequency however she has had blood work and a urine done with her primary October 14 she said it was negative. She has had increasing severe back pain so severe that she cannot or walk. She body aches chills. 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 Off and on denies any neck pain. She has aching is chills low-grade temp. Most of her symptoms are controlled with Tylenol and Motrin however her back pain has gotten significantly worse. MD Complaint: back pain Onset (ago): day(s) (5) Duration: constant Location: lumbar spine Severity: severe Quality: sharp Radiation: none Associated symptoms: weakness, fatigue and difficulty walking Related Data Allergies Allergy/AdvReac Type Severity Reaction Status Date / Time chlorhexidine [CHLORHEXIDINE] Allergy Intermediate RASH Verified 10/14/20 09:39 oxycodone [OXYCODONE] Allergy Intermediate NAUSEA/DIZZ Verified 10/14/20 09:39 INESS Review of Systems Review of Systems ROS Unobtainable: All systems reviewed & are unremarkable except as noted in HPI and below Constitutional Constitutional: Reports body ache(s), Reports chills, Reports fatigue and Re ports fever(s) Eyes Eyes: Denies change in vision, Denies eye discharge, Denies irritation and Denies loss of vision Cardiovascular Cardiovascular: Denies chest pain, Denies irregular heart rhythm, Denies lightheadedness, Denies palpitations, Denies dyspnea, Denies dyspnea on exertion and Denies orthopnea Respiratory Respiratory: Denies cough, Denies dyspnea, Denies dyspnea on exertion and Denies wheezing Gastrointestinal Gastrointestinal: Denies abdominal pain, Denies change in bowel habits, Denies diarrhea, Denies nausea and Denies vomiting Genitourinary Genitourinary: Reports urinary urgency Genitourinary: Reports urinary urgency Musculoskeletal Musculoskeletal: Reports as per HPI and Reports back pain Integumentary/Breasts Skin/Breast: Denies pruritus, Denies erythema, Denies rash and Denies wounds Neurologic Neurologic: Denies loss of vision Endocrine Endocrine: Reports fatigue and Denies palpitations Allergic/Immunologic Allergic/Immunologic: Denies wheezing Patient History Medical History Degenerative disc disease, cervical Insomnia Kidney stones Obstructive sleep apnea Palpitations (09/07/11) Snoring (09/07/11) Surgical History H/O melanoma excision History of bilateral salpingo-oophorectomy (BSO) History of left salpingo-oophorectomy (2008) History of spinal fusion Status post vaginal hysterectomy Family History Family/Other Dementia Father Loud snoring Hypertension Heart disease Alcohol abuse Mother Loud snoring Alcohol abuse Family/Other Depression Bipolar disorder Social History marital status: household members: spouse Smoking Status: Never smoker alcohol intake: current substance use type: does not use Smoking Status: Never smoker alcohol intake frequency: 0-2 drinks per day Substance Use Type: does not use Exam Initial Vital Signs Initial Vital Signs: Vital Signs Temperature 98.8 F 10/16/20 07:20 Pulse Rate 82 10/16/20 07:20 Respiratory Rate 16 10/16/20 07:20 Blood Pressure 129/72 10/16/20 07:20 Pulse Oximetry 99 10/16/20 07:20 GENERAL: Patient appears in severe pain HEENT: Head atraumatic,EOMI, pupils reactive, face symmetric, moist mucous membranes CARDIOVASCULAR: Regular rate and rhythm without murmurs, rubs or gallops. RESPIRATORY: Breath sounds equal bilaterally, no wheezes rales or rhonchi. ABDOMEN: Soft, nontender. Normoactive bowel sounds all 4 quadrants. No guarding or rebound. BACK: Scar noted over the lumbar region. She points to L4 area slightly to the left of the most severe pain. There is no erythema. She says that due to surgery the skin over the scar is numb she cannot tell me if that area is truly painful. : No CVA tenderness EXTREMITIES: Normal range of motion, no clubbing or edema. Neurovascularly intact NEUROLOGICAL: Alert and oriented x4.Normal gait and speech. Cranial nerves II through XII grossly intact. Good [id number]-[id number], good pywe-fo-pnnm, strength equal bilaterally, no dysarthria or aphasia, sensation in tact to soft touch bilaterally, no visual changes, no facial droop SKIN: Warm, dry, no laceration, no petechiae, no rashes or lesions. Course Orders Ordered: ED Orders 10/16/20 07:25 C-Reactive Protein Quant Stat Complete Blood Count AUTO DIFF Stat Comprehensive Metabolic Panel Stat Erythrocyte Sedimentation Rate Stat Lactate (Lactic Acid) Stat Lipase Stat Partial Thromboplastin Time Stat Procalcitonin Stat Prothrombin Time INR Stat 10/16/20 07:55 MR lumbar spine wo/w con Stat 10/16/20 08:55 Blood Culture Stat 10/16/20 09:24 COVID19 Stat Urinalysis and Microscopic Stat 10/16/20 10:15 XR chest 1V Stat Acetaminophen (Acetaminophen 325 Mg Tablet) 650 mg PO Q6HR PRN PRN Reason: Fever/Mild Pain (1-3) Docusate Sodium (Docusate 100 Mg Capsule) 100 mg PO BID MATT Enoxaparin Sodium (Enoxaparin 40 Mg/0.4 Ml Syringe) 40 mg SUBCUT DAILY MATT Hydromorphone HCl (Hydromorphone 0.5 Mg Inj) 0.5 mg IV Q6H PRN PRN Reason: Pain, Moderate (4-6) Last Admin: 10/16/20 14:11 Dose: 0.5 mg Documented by: CAMILA Dextrose/Sodium Chloride (Dextrose 5%-0.9% Ns) 1,000 mls @ 150 mls/hr IV CONT MATT Dextrose/Sodium Chloride (Dextrose 5%-0.9% Ns) 1,000 mls @ 175 mls/hr IV BOLUS ONE Stop: 10/16/20 19:56 Last Admin: 10/16/20 14:19 Dose: 175 mls/hr Documented by: CAMILA Ibuprofen (Ibuprofen 600 Mg Tablet) 600 mg PO Q6HR PRN PRN Reason: Fever/Mild Pain (1-3) Naloxone HCl (Naloxone 0.4 Mg/Ml Vial) 0.2 mg IV Q2MIN PRN PRN Reason: Opiate Reversal Ondansetron HCl (Ondansetron 4 Mg/2 Ml Inj) 4 mg IV Q8HR PRN PRN Reason: Nausea And Vomiting Discontinued Medications Gabapentin (Gabapentin 300 Mg Capsule) 300 mg PO BEDTIME MATT Hydromorphone HCl (Hydromorphone 1 Mg Inj) 1 mg IV NOW ONE Stop: 10/16/20 07:56 Last Admin: 10/16/20 07:58 Dose: 1 mg Documented by: JUSTIN Hydromorphone HCl (Hydromorphone 0.5 Mg Inj) 0.5 mg IV NOW ONE Stop: 10/16/20 10:34 Last Admin: 10/16/20 10:35 Dose: 0.5 mg Documented by: JUSTIN Sodium Chloride (Normal Saline 0.9%) 1,000 mls @ 1,000 mls/hr IV BOLUS ONE Stop: 10/16/20 08:41 Last Infusion: 10/16/20 09:00 Dose: 0 mls/hr Documented by: Admin: 10/16/20 07:45 Dose: 1,000 mls/hr Documented by: RIZWANAINOR Sodium Chloride (Normal Saline 0.9%) 1,000 mls @ 1,000 mls/hr IV BOLUS ONE Stop: 10/16/20 10:15 Last Infusion: 10/16/20 10:40 Dose: 0 mls/hr Documented by: Admin: 10/16/20 09:38 Dose: 1,000 mls/hr Documented by: JUSTIN Ketorolac Tromethamine (Ketorolac 60 Mg/2 Ml Vial) 15 mg IV NOW ONE Stop: 10/16/20 07:56 Last Admin: 10/16/20 07:58 Dose: 15 mg Documented by: JUSTIN Vital Signs Vital signs: Vital Signs - 8 hr 10/16/20 08:00 10/16/20 08:50 10/16/20 09:00 Pulse Rate 72 77 72 Blood Pressure 107/66 Pulse Oximetry 98 96 93 10/16/20 09:18 10/16/20 09:30 10/16/20 10:00 Pulse Rate 74 68 70 Blood Pressure 107/71 101/58 L 104/68 Pulse Oximetry 97 94 99 10/16/20 10:30 Pulse Rate 80 Blood Pressure 110/63 Pulse Oximetry 95 MDM - Back Pain/Injury Lab Data Attestation: I reviewed the patient's lab results. Result diagrams: 10/16/20 07:25 10/16/20 07:25 Labs: Lab Results 10/16/20 10/16/20 10/16/20 Range/Units 07:25 07:25 07:25 WBC 6.3 (4.5-11.0) X10^3/uL RBC 4.23 (4.0-5.2) X10^6/uL Hgb 13.1 (12.0-16.0) g/dL Hct 38.2 (36-46) % MCV 90.1 (80-100) fL MCH 30.9 (26-34) PG MCHC 34.3 (30-36) % RDW 12.9 (11.6-14.8) % Plt Count 165 (150-400) X10^3/uL Neut % (Auto) 74.3 (50-75) % Lymph % (Auto) 14.1 L (25-40) % [place] % (Auto) 11.2 (3-14) % Eos % (Auto) 0.2 L (2-4) % Baso % (Auto) 0.2 (0-2) % Neut # (Auto) 4700 (3632-5765) /uL Lymph # (Auto) 900 L (1262-4122) /uL [place] # (Auto) 700 (0-900) /uL Eos # (Auto) 0 (0-450) /uL Baso # (Auto) 0 (0-100) /uL ESR (0-20) MM/HR PT 14.9 H (10.1-12.7) SECONDS INR 1.3 (0.9-1.3) APTT 29 (26.4-36.2) SECONDS Sodium (137-145) mmol/L Potassium (3.4-5.1) mmol/L Chloride (98-107) mmol/L Carbon Dioxide (22-32) mmol/L BUN (7-17) mg/dL Creatinine (0.52-1.04) mg/dL Estimated GFR (>60) mL/min BUN/Creatinine Ratio (6-22) Glucose (70-100) mg/dL Lactate (0.7-2.1) mmol/L Calcium (8.4-10.2) mg/dL Total Bilirubin (0.2-1.3) mg/dL AST (14-36) IU/L ALT (<35) IU/L Alkaline Phosphatase (38-126) U/L C-Reactive Protein (<1.0) mg/dL Total Protein (6.3-8.2) g/dL Albumin (3.5-5.0) g/dL Globulin (1.7-4.1) g/dL Albumin/Globulin Ratio (1.0-2.8) Lipase (23-300) U/L Procalcitonin 0.63 H (<0.5) ng/mL Urine Color Urine Appearance Urine pH (4.5-8.0) Ur Specific [place] (1.000-1.035) Urine Protein (Negative) Urine Glucose (UA) (Negative) g/dL Urine Ketones (NEGATIVE) Urine Occult Blood (Negative) Urine Nitrate (Negative) Urine Bilirubin (NEGATIVE) Urine Urobilinogen (0.2) E.U./dL Ur Leukocyte Esterase (NEGATIVE) Urine RBC (0-5/HPF) Urine WBC (0-5/HPF) Ur Squamous Epith Cells (0-5/HPF) Urine Bacteria (None) Urine Mucus (Negative) Ur Culture Indicated? Micro UA Comment SARS-CoV-2 (PCR) (Negative) 10/16/20 10/16/20 10/16/20 Range/Units 07:25 07:25 07:25 WBC (4.5-11.0) X10^3/uL RBC (4.0-5.2) X10^6/uL Hgb (12.0-16.0) g/dL Hct (36-46) % MCV (80-100) fL MCH (26-34) PG MCHC (30-36) % RDW (11.6-14.8) % Plt Count (150-400) X10^3/uL Neut % (Auto) (50-75) % Lymph % (Auto) (25-40) % [place] % (Auto) (3-14) % Eos % (Auto) (2-4) % Baso % (Auto) (0-2) % Neut # (Auto) (4580-8657) /uL Lymph # (Auto) (4448-7026) /uL [place] # (Auto) (0-900) /uL Eos # (Auto) (0-450) /uL Baso # (Auto) (0-100) /uL ESR 46 H (0-20) MM/HR PT (10.1-12.7) SECONDS INR (0.9-1.3) APTT (26.4-36.2) SECONDS Sodium 136 L (137-145) mmol/L Potassium 4.1 (3.4-5.1) mmol/L Chloride 100 (98-107) mmol/L Carbon Dioxide 31 (22-32) mmol/L BUN 15 (7-17) mg/dL Creatinine 0.49 L (0.52-1.04) mg/dL Estimated GFR > 60.0 (>60) mL/min BUN/Creatinine Ratio 30.6 H (6-22) Glucose 115 H (70-100) mg/dL Lactate 1.1 (0.7-2.1) mmol/L Calcium 9.0 (8.4-10.2) mg/dL Total Bilirubin 1.1 (0.2-1.3) mg/dL AST 26 (14-36) IU/L ALT 26 (<35) IU/L Alkaline Phosphatase 63 (38-126) U/L C-Reactive Protein (<1.0) mg/dL Total Protein 7.3 (6.3-8.2) g/dL Albumin 4.2 (3.5-5.0) g/dL Globulin 3.1 (1.7-4.1) g/dL Albumin/Globulin Ratio 1.4 (1.0-2.8) Lipase 70 (23-300) U/L Procalcitonin (<0.5) ng/mL Urine Color Urine Appearance Urine pH (4.5-8.0) Ur Specific [place] (1.000-1.035) Urine Protein (Negative) Urine Glucose (UA) (Negative) g/dL Urine Ketones (NEGATIVE) Urine Occult Blood (Negative) Urine Nitrate (Negative) Urine Bilirubin (NEGATIVE) Urine Urobilinogen (0.2) E.U./dL Ur Leukocyte Esterase (NEGATIVE) Urine RBC (0-5/HPF) Urine WBC (0-5/HPF) Ur Squamous Epith Cells (0-5/HPF) Urine Bacteria (None) Urine Mucus (Negative) Ur Culture Indicated? Micro UA Comment SARS-CoV-2 (PCR) (Negative) 10/16/20 10/16/20 10/16/20 Range/Units 07:25 09:24 09:24 WBC (4.5-11.0) X10^3/uL RBC (4.0-5.2) X10^6/uL Hgb (12.0-16.0) g/dL Hct (36-46) % MCV (80-100) fL MCH (26-34) PG MCHC (30-36) % RDW (11.6-14.8) % Plt Count (150-400) X10^3/uL Neut % (Auto) (50-75) % Lymph % (Auto) (25-40) % [place] % (Auto) (3-14) % Eos % (Auto) (2-4) % Baso % (Auto) (0-2) % Neut # (Auto) (7842-3843) /uL Lymph # (Auto) (9262-3675) /uL [place] # (Auto) (0-900) /uL Eos # (Auto) (0-450) /uL Baso # (Auto) (0-100) /uL ESR (0-20) MM/HR PT (10.1-12.7) SECONDS INR (0.9-1.3) APTT (26.4-36.2) SECONDS Sodium (137-145) mmol/L Potassium (3.4-5.1) mmol/L Chloride (98-107) mmol/L Carbon Dioxide (22-32) mmol/L BUN (7-17) mg/dL Creatinine (0.52-1.04) mg/dL Estimated GFR (>60) mL/min BUN/Creatinine Ratio (6-22) Glucose (70-100) mg/dL Lactate (0.7-2.1) mmol/L Calcium (8.4-10.2) mg/dL Total Bilirubin (0.2-1.3) mg/dL AST (14-36) IU/L ALT (<35) IU/L Alkaline Phosphatase (38-126) U/L C-Reactive Protein 3.9 H (<1.0) mg/dL Total Protein (6.3-8.2) g/dL Albumin (3.5-5.0) g/dL Globulin (1.7-4.1) g/dL Albumin/Globulin Ratio (1.0-2.8) Lipase (23-300) U/L Procalcitonin (<0.5) ng/mL Urine Color Yellow Urine Appearance Clear Urine pH 6.0 (4.5-8.0) Ur Specific [place] 1.020 (1.000-1.035) Urine Protein Negative (Negative) Urine Glucose (UA) Trace H (Negative) g/dL Urine Ketones Trace H (NEGATIVE) Urine Occult Blood Negative (Negative) Urine Nitrate Negative (Negative) Urine Bilirubin Negative (NEGATIVE) Urine Urobilinogen 0.2 (0.2) E.U./dL Ur Leukocyte Esterase Trace H (NEGATIVE) Urine RBC None seen (0-5/HPF) Urine WBC 5-10/hpf H (0-5/HPF) Ur Squamous Epith Cells 5-10 /hpf H (0-5/HPF) Urine Bacteria Few (2-10) H (None) Urine Mucus 1+ H (Negative) Ur Culture Indicated? Culture not indicate Micro UA Comment SARS-CoV-2 (PCR) Negative (Negative) Urine Dip Bedside Urine Glucose Negative Bedside Urine Bilirubin - Negative Bedside Urine Ketone +/- 5 Urine Specific [place] 1.015 Bedside Urine Occult Blood - Negative Bedside Urine pH 6 Bedside Urine Protein - Negative Bedside Urine Urobilinogen +/- 1mg Bedside Urine Nitrite - Negative Bedside Urine Leukocytes - Negative Esterase Imaging Data MR Back: Radiologist's Impression: PROCEDURE: MR LUMBAR SPINE WO/W CON INDICATIONS: fever and severe back pain TECHNIQUE: Noncontrast sagittal T1 spin echo and T2 fast spin echo, sagittal STIR, axial T1 and T2 fast spin echo through the lumbar spine. In cases with scoliosis, additional coronal T2 fast spin echo may be performed. After the administration of contrast, sagittal and axial T1 spin echo with fat saturation through the lumbar spine. COMPARISON: [facility], CT, CT ABDOMEN PELVIS W CON, 06/04/2020, 11:36. [facility], CR, XR THORACIC SPINE 3V, 05/29/2020, 6:39. FINDINGS: Image quality: Excellent. Alignment and curvature: There is moderate levoscoliosis. There is laminectomy and fusion of L4-L5. Grade 1 anterolisthesis of L3 on L4, and grade 1 retrolisthesis of L5 on S1. Marrow: Marrow is of normal overall signal. No acute vertebral body compression fractures. No suspicious marrow enhancement. There is moderate sacroiliac joint degeneration bilaterally. Mild enhancement around the left SI joint is nonspecific. Spinal cord: Conus medullaris terminates at the L1 level. Visualized spinal cord demonstrates normal signal, without suspicious enhancement. Paraspinous soft tissues: No paravertebral masses or abnormal enhancement. T10-T11: Mild loss of disc height and moderate disc desiccation. There is broad posterior disc bulge with disc osteophyte complex. Mild bilateral facet arthropathy. The central canal is mildly narrowed. Mild bilateral foraminal stenosis. T11-T12: Edtxyiwh-vr-aqhsbl loss of disc height and disc desiccation. There is broad posterior disc bulge with disc osteophyte complex. Moderate left and mild right facet arthropathy. The central canal is patent. Mild left foraminal stenosis. Patent right foramen. T12-L1: Preserved disc height. Mild disc desiccation. There is broad posterior disc bulge with disc osteophyte complex. Moderate left and mild right facet arthropathy. The central canal is mildly narrowed. Mild left foraminal stenosis. Patent right foramen. L1-L2: Preserved disc height. Mild disc desiccation. There is mild posterior disc bulge. Moderate bilateral facet arthropathy. The central canal is patent. No foraminal stenosis. L2-L3: Severe loss of disc height and disc desiccation. There is broad posterior disc bulge and disc osteophyte complex. Severe bilateral facet arthropathy. The central canal is mildly narrowed. Mild bilateral foraminal stenosis. L3-L4: Severe loss of disc height and disc desiccation. There is broad posterior disc bulge and disc osteophyte complex. Severe bilateral facet arthropathy. The central canal is moderately narrowed. Jqapsihz-jq-vegfjy right and mild left foraminal stenosis. L4-L5: Surgically fused. No central canal stenosis. Mild bilateral foraminal stenosis. L5-S1: Moderate loss of disc height and disc desiccation. There is posterior disc bulge. Severe bilateral facet arthropathy. The central canal is patent. Severe left and mild right foraminal stenosis. IMPRESSION: 1. Multilevel degenerative and postsurgical changes in lumbar spine as described. 2. Moderate central canal stenosis at L3-L4, and mild central canal stenosis at several other levels. 3. Multilevel foraminal stenosis as described. 4. Scoliosis. 5. No findings to suggest discitis or vertebral osteomyelitis. No epidural abscess. 6. Sacroiliac joint degeneration. There is mild enhancement around the left SI joint, which is nonspecific and could represent reactive change or septic joint. Dictated by: Lizy Orozco M.D. on 10/16/2020 at 9:04 MDM Narrative Medical decision making narrative: Patient does have elevated inflammatory marker markers ESR CRP. Mild elevation of procalcitonin but that has actually improved over last 2 days. No obvious source of infection. MR is negative no sign of diskitis or osteomyelitis. Patient's pain is much better after Toradol and Dilaudid however she still is requiring full assistance to the commode. She says that is the last 2 days her has been the only 1 helping her and she is requiring full assistance secondary to pain. In the ED after Toradol and Dilaudid she still required assistance to the commode. Dr Barry, accepts patient for observation Discharge Plan Departure Patient Disposition: Admitted as Observation Clinical Impression: Acute viral syndrome Back pain Qualifiers: Back pain location: low back pain Chronicity: acute Back pain laterality: midline Sciatica presence: without sciatica Qualified Code(s): M54.5 - Low back pain Admit Date/Time: 10/16/20 10:43 Admit Provider: Saman Barry
--- NOTE | 2020-10-16 07:55 | DI.MRI.S_ITS ---
PROCEDURE: MR LUMBAR SPINE WO/W CON INDICATIONS: fever and severe back pain TECHNIQUE: Noncontrast sagittal T1 spin echo and T2 fast spin echo, sagittal STIR, axial T1 and T2 fast spin echo through the lumbar spine. In cases with scoliosis, additional coronal T2 fast spin echo may be performed. After the administration of contrast, sagittal and axial T1 spin echo with fat saturation through the lumbar spine. COMPARISON: [facility], CT, CT ABDOMEN PELVIS W CON, 06/04/2020, 11:36. [facility], CR, XR THORACIC SPINE 3V, 05/29/2020, 6:39. FINDINGS: Image quality: Excellent. Alignment and curvature: There is moderate levoscoliosis. There is laminectomy and fusion of L4-L5. Grade 1 anterolisthesis of L3 on L4, and grade 1 retrolisthesis of L5 on S1. Marrow: Marrow is of normal overall signal. No acute vertebral body compression fractures. No suspicious marrow enhancement. There is moderate sacroiliac joint degeneration bilaterally. Mild enhancement around the left SI joint is nonspecific. Spinal cord: Conus medullaris terminates at the L1 level. Visualized spinal cord demonstrates normal signal, without suspicious enhancement. Paraspinous soft tissues: No paravertebral masses or abnormal enhancement. T10-T11: Mild loss of disc height and moderate disc desiccation. There is broad posterior disc bulge with disc osteophyte complex. Mild bilateral facet arthropathy. The central canal is mildly narrowed. Mild bilateral foraminal stenosis. T11-T12: Ycihjkip-rf-ltqwwl loss of disc height and disc desiccation. There is broad posterior disc bulge with disc osteophyte complex. Moderate left and mild right facet arthropathy. The central canal is patent. Mild left foraminal stenosis. Patent right foramen. T12-L1: Preserved disc height. Mild disc desiccation. There is broad posterior disc bulge with disc osteophyte complex. Moderate left and mild right facet arthropathy. The central canal is mildly narrowed. Mild left foraminal stenosis. Patent right foramen. L1-L2: Preserved disc height. Mild disc desiccation. There is mild posterior disc bulge. Moderate bilateral facet arthropathy. The central canal is patent. No foraminal stenosis. L2-L3: Severe loss of disc height and disc desiccation. There is broad posterior disc bulge and disc osteophyte complex. Severe bilateral facet arthropathy. The central canal is mildly narrowed. Mild bilateral foraminal stenosis. L3-L4: Severe loss of disc height and disc desiccation. There is broad posterior disc bulge and disc osteophyte complex. Severe bilateral facet arthropathy. The central canal is moderately narrowed. Qugxdodd-xu-dpylex right and mild left foraminal stenosis. L4-L5: Surgically fused. No central canal stenosis. Mild bilateral foraminal stenosis. L5-S1: Moderate loss of disc height and disc desiccation. There is posterior disc bulge. Severe bilateral facet arthropathy. The central canal is patent. Severe left and mild right foraminal stenosis. IMPRESSION: 1. Multilevel degenerative and postsurgical changes in lumbar spine as described. 2. Moderate central canal stenosis at L3-L4, and mild central canal stenosis at several other levels. 3. Multilevel foraminal stenosis as described. 4. Scoliosis. 5. No findings to suggest discitis or vertebral osteomyelitis. No epidural abscess. 6. Sacroiliac joint degeneration. There is mild enhancement around the left SI joint, which is nonspecific and could represent reactive change or septic joint. Dictated by: Lizy Orozco M.D. on 10/16/2020 at 9:04 Approved by: Lizy Orozco M.D. on 10/16/2020 at 9:23
[2020-10-16 07:57] LABS: Add Manual Diff / Slide Review NO; Basophils Absolute Auto 0 /uL (0-100); Basophils Percent Auto 0.2 % (0-2); Eosinophils Absolute Auto 0 /uL (0-450); Eosinophils Percent Auto 0.2 % (2-4); Hematocrit 38.2 % (36-46); Hemoglobin 13.1 g/dL (12.0-16.0); Lymphocytes Absolute Auto 900 /uL (1100-4500); Lymphocytes Percent Auto 14.1 % (25-40); Mean Corpuscular HGB Conc 34.3 % (30-36); Mean Corpuscular Hemoglobin 30.9 PG (26-34); Mean Corpuscular Volume 90.1 fL (80-100); Monocytes Absolute Auto 700 /uL (0-900); Monocytes Percent Auto 11.2 % (3-14); Neutrophils Absolute Auto 4700 /uL (1500-7000); Neutrophils Percent Auto 74.3 % (50-75); Platelet Count 165 X10^3/uL (150-400); Red Blood Cell Count 4.23 X10^6/uL (4.0-5.2); Red Cell Distribution Width 12.9 % (11.6-14.8); White Blood Cell Count 6.3 X10^3/uL (4.5-11.0)
[2020-10-16 07:58] LABS: INR 1.3 (0.9-1.3); Prothrombin Time 14.9 SECONDS (10.1-12.7)
[2020-10-16] MEDS: KETOROLAC 60 MG/2 ML VIAL 15 MG IV (07:58)
[2020-10-16] MEDS: HYDROMORPHONE 1 MG INJ IV (07:58)
[2020-10-16 08:00] LABS: PTT Partial Thromboplastin Tim 29 SECONDS (26.4-36.2)
[2020-10-16 08:02] LABS: Alanine Aminotransferase 26 IU/L (<35); Albumin 4.2 g/dL (3.5-5.0); Albumin Globulin Ratio 1.4 (1.0-2.8); Alkaline Phosphatase 63 U/L (38-126); Aspartate Aminotransferase 26 IU/L (14-36); BUN Creatinine Ratio 30.6 (6-22); Bilirubin Total 1.1 mg/dL (0.2-1.3); Blood Urea Nitrogen 15 mg/dL (7-17); Carbon Dioxide 31 mmol/L (22-32); Chloride 100 mmol/L (98-107); Estimated Glomerular Filt Rate > 60.0 mL/min (>60); Globulin 3.1 g/dL (1.7-4.1); Glucose 115 mg/dL (70-100); HEMOLYSIS < 15 (0-50); Lactate (Lactic Acid) 1.1 mmol/L (0.7-2.1); Lipase 70 U/L (23-300); Potassium 4.1 mmol/L (3.4-5.1); Sodium 136 mmol/L (137-145); Total Protein 7.3 g/dL (6.3-8.2)
[2020-10-16 08:32] LABS: Procalcitonin 0.63 ng/mL (<0.5)
[2020-10-16 08:51] LABS: C-Reactive Protein Quant 3.9 mg/dL (<1.0)
[2020-10-16 09:05] LABS: Erythrocyte Sedimentation Rate 46 MM/HR (0-20)
[2020-10-16 09:33] LABS: RBC Urine None Seen (0-5/HPF)
[2020-10-16 09:42] LABS: Appearance Urine UA CLEAR; Bilirubin Urine UA NEGATIVE (NEGATIVE); Color Urine UA YELLOW; Glucose Urine UA TRACE g/dL (Negative); Ketones Urine UA TRACE (NEGATIVE); Leukocyte Esterase Urine UA TRACE (NEGATIVE); Nitrite Urine UA NEGATIVE (Negative); Occult Blood Urine UA NEGATIVE (Negative); Protein Urine UA NEGATIVE (Negative); Urobilinogen Urine UA 0.2 E.U./dL (0.2)
[2020-10-16 09:49] LABS: COVID19 -Nasal RAPID Negative (Negative)
[2020-10-16 10:01] LABS: Bacteria Urine Few (2-10); Squamous Epithelial Cell Urine 5-10 /HPF (0-5/HPF); WBC Urine 5-10/HPF (0-5/HPF)
[2020-10-16 10:02] LABS: Mucus Urine 1+ (Negative)
--- NOTE | 2020-10-16 10:15 | DI.RAD.S_ITS ---
PROCEDURE: XR CHEST 1V INDICATIONS: fever TECHNIQUE: One view of the chest was acquired. COMPARISON: [facility], , CHEST 2 VIEW, 10/18/2014, 9:17. FINDINGS: Surgical changes and devices: Surgical clips are demonstrated in the left adnexa. Lungs and pleura: A few linear opacities in the left lung base likely represent atelectasis or scarring. No definite focal consolidation. No pleural effusions or pneumothorax. Mediastinum: Heart size is mildly enlarged. Bones and chest wall: No suspicious bony lesions. Overlying soft tissues appear unremarkable. IMPRESSION: 1. No definite evidence of pneumonia. Dictated by: Prasad Rodriguez M.D. on 10/16/2020 at 11:25 Approved by: Prasad Rodriguez M.D. on 10/16/2020 at 11:29
[2020-10-16] MEDS: HYDROMORPHONE 0.5 MG INJ IV ×3 (10:35→22:50)
--- NOTE | 2020-10-16 13:29 | P.HP_ITS ---
History of Present Illness History of Present Illness Date Patient Seen: 10/16/20 Time Patient Seen: 13:29 Chief complaint: Back pain Narrative: 55-year-old female who comes in with lower lumbar back pain. Patient actually has not been feeling well since the 10 of October. 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 Patient was seen and evaluated and had a COVID test on the night. It was negative. Patient continued to have fevers chills rigors and shakes. Fever was low-grade do 100 on occasion 101. She gets chills achiness. Headache symptoms seem to be worse in the evening better during the day. She was seen and evaluated in the clinic by me with ongoing symptoms. Symptoms were consistent with fevers chills achiness weakness headache. Laboratory testing was done including a white blood cell count repeat of a COVID test procalcitonin. Patient had a viral swab also which was done testing for influenza. Laboratory tests were unrevealing. Patient the next day continued with her symptomatology and then began to have nausea and dry heaves and was not eating. She also began to have low back pain. Patient's low back pain progressed throughout the evening and day yesterday. To the point where she found it more more difficult to eat walk ambulate and was mainly confined to the bed. This morning she had a hard time getting out of bed because of the back pain spasms and discomfort. So she was brought to the emergency department. Patient feels sick to her stomach nauseated very weak achy headaches she has not had a temperature she says today. She has had no vomiting. She feels dehydrated. She is having severe back pain. Is midline. There is no radicular pain. He goes to a sometimes both of her hips. She has not had loss of bladder or bowel control. Repeat laboratory testing was done in the emergency room which showed normal white blood cell count. Mildly elevation sed rate CRP procalcitonin mildly elevated chest x-ray normal urinalysis shows contamination repeat MRI have her back was done. Which showed no diskitis or inflammation. She has some mild reactive changes at her left hip. Patient History Medical History Degenerative disc disease, cervical Insomnia Kidney stones Obstructive sleep apnea Palpitations (09/07/11) Snoring (09/07/11) Surgical History H/O melanoma excision History of bilateral salpingo-oophorectomy (BSO) History of left salpingo-oophorectomy (2008) History of spinal fusion Status post vaginal hysterectomy Family & Social History Family History Family/Other Dementia Father Loud snoring Hypertension Heart disease Alcohol abuse Mother Loud snoring Alcohol abuse Family/Other Depression Bipolar disorder Social History: household members spouse Prior Living Arrangements House Safety & Behavioral: Feels Safe in Current Yes Environment Been Physically Hurt or No Threatened By a Person Suicidal Ideation Description None Suicide Plan Description No Plan Tobacco & Substance use: Smoking Status Never smoker alcohol intake current alcohol intake frequency 0-2 drinks per day Substance Use Type does not use Meds Home Medications and Allergies Home Medications Medication Instructions Recorded Confirmed Type gabapentin 300 mg capsule 300 mg PO BEDTIME #30 cap 06/05/20 10/14/20 Rx ondansetron 4 mg disintegrating 4 mg PO Q8H PRN #14 tab 10/15/20 Rx tablet Allergies Allergy/AdvReac Type Severity Reaction Status Date / Time chlorhexidine [CHLORHEXIDINE] Allergy Intermediate RASH Verified 10/14/20 09:39 oxycodone [OXYCODONE] Allergy Intermediate NAUSEA/DIZZ Verified 10/14/20 09:39 INESS Exam Vital Signs (past 8 hours): - 10/16/20 07:20 10/16/20 07:23 10/16/20 07:30 Temperature 98.8 F Pulse Rate 82 82 78 Respiratory Rate 16 Blood Pressure 129/72 Pulse Oximetry 99 97 97 10/16/20 08:00 10/16/20 08:50 10/16/20 09:00 Temperature Pulse Rate 72 77 72 Respiratory Rate Blood Pressure 107/66 Pulse Oximetry 98 96 93 10/16/20 09:18 10/16/20 09:30 10/16/20 10:00 Temperature Pulse Rate 74 68 70 Respiratory Rate Blood Pressure 107/71 101/58 L 104/68 Pulse Oximetry 97 94 99 10/16/20 10:30 10/16/20 11:00 Temperature Pulse Rate 80 77 Respiratory Rate Blood Pressure 110/63 103/60 Pulse Oximetry 95 95 Oxygen Delivery Method Room Air Narrative Exam Narrative: Gen.: Alert and oriented x3 no apparent distress. HEENT: NCAT PERRLA tympanic membranes are clear nares are patent oral mucosa is moist no tonsillar hypertrophy neck is supple without lymphadenopathy no thyroid enlargement. Cardio: S1-S2 regular rate and rhythm no murmurs appreciated. Respiratory: Lungs are clear to auscultation no wheezes or crackles normal respiratory effort. Abdomen: Soft nontender no rebound or guarding no liver spleen enlargement no appreciable hernias Extremities: Full range of motion no appreciable weakness no cyanosis or edema. Neurologic: Grossly intact. Objective Labs Result Diagrams: 10/16/20 07:25 10/16/20 07:25 Labs: Laboratory Results - last 24 hr 10/16/20 10/16/20 10/16/20 07:25 07:25 07:25 WBC 6.3 RBC 4.23 Hgb 13.1 Hct 38.2 MCV 90.1 MCH 30.9 MCHC 34.3 RDW 12.9 Plt Count 165 Neut % (Auto) 74.3 Lymph % (Auto) 14.1 L [place] % (Auto) 11.2 Eos % (Auto) 0.2 L Baso % (Auto) 0.2 Neut # (Auto) 4700 Lymph # (Auto) 900 L [place] # (Auto) 700 Eos # (Auto) 0 Baso # (Auto) 0 ESR PT 14.9 H INR 1.3 APTT 29 Sodium Potassium Chloride Carbon Dioxide BUN Creatinine Estimated GFR BUN/Creatinine Ratio Glucose Lactate Calcium Total Bilirubin AST ALT Alkaline Phosphatase C-Reactive Protein Total Protein Albumin Globulin Albumin/Globulin Ratio Lipase Procalcitonin 0.63 H Urine Color Urine Appearance Urine pH Ur Specific [place] Urine Protein Urine Glucose (UA) Urine Ketones Urine Occult Blood Urine Nitrate Urine Bilirubin Urine Urobilinogen Ur Leukocyte Esterase Urine RBC Urine WBC Ur Squamous Epith Cells Urine Bacteria Urine Mucus Ur Culture Indicated? Micro UA Comment SARS-CoV-2 (PCR) 10/16/20 10/16/20 10/16/20 07:25 07:25 07:25 WBC RBC Hgb Hct MCV MCH MCHC RDW Plt Count Neut % (Auto) Lymph % (Auto) [place] % (Auto) Eos % (Auto) Baso % (Auto) Neut # (Auto) Lymph # (Auto) [place] # (Auto) Eos # (Auto) Baso # (Auto) ESR 46 H PT INR APTT Sodium 136 L Potassium 4.1 Chloride 100 Carbon Dioxide 31 BUN 15 Creatinine 0.49 L Estimated GFR > 60.0 BUN/Creatinine Ratio 30.6 H Glucose 115 H Lactate 1.1 Calcium 9.0 Total Bilirubin 1.1 AST 26 ALT 26 Alkaline Phosphatase 63 C-Reactive Protein Total Protein 7.3 Albumin 4.2 Globulin 3.1 Albumin/Globulin Ratio 1.4 Lipase 70 Procalcitonin Urine Color Urine Appearance Urine pH Ur Specific [place] Urine Protein Urine Glucose (UA) Urine Ketones Urine Occult Blood Urine Nitrate Urine Bilirubin Urine Urobilinogen Ur Leukocyte Esterase Urine RBC Urine WBC Ur Squamous Epith Cells Urine Bacteria Urine Mucus Ur Culture Indicated? Micro UA Comment SARS-CoV-2 (PCR) 10/16/20 10/16/20 10/16/20 07:25 09:24 09:24 WBC RBC Hgb Hct MCV MCH MCHC RDW Plt Count Neut % (Auto) Lymph % (Auto) [place] % (Auto) Eos % (Auto) Baso % (Auto) Neut # (Auto) Lymph # (Auto) [place] # (Auto) Eos # (Auto) Baso # (Auto) ESR PT INR APTT Sodium Potassium Chloride Carbon Dioxide BUN Creatinine Estimated GFR BUN/Creatinine Ratio Glucose Lactate Calcium Total Bilirubin AST ALT Alkaline Phosphatase C-Reactive Protein 3.9 H Total Protein Albumin Globulin Albumin/Globulin Ratio Lipase Procalcitonin Urine Color Yellow Urine Appearance Clear Urine pH 6.0 Ur Specific [place] 1.020 Urine Protein Negative Urine Glucose (UA) Trace H Urine Ketones Trace H Urine Occult Blood Negative Urine Nitrate Negative Urine Bilirubin Negative Urine Urobilinogen 0.2 Ur Leukocyte Esterase Trace H Urine RBC None seen Urine WBC 5-10/hpf H Ur Squamous Epith Cells 5-10 /hpf H Urine Bacteria Few (2-10) H Urine Mucus 1+ H Ur Culture Indicated? Culture not indicate Micro UA Comment SARS-CoV-2 (PCR) Negative Assessment & Plan Assessment & Plan narrative: Patient with weakness headache low-grade fevers and chills. Viral syndrome verses vaccine reaction. Versus unspecified infection. Patient will be symptomatically treated with IV fluids antiemetics pain medication will continue the workup process by awaiting blood cultures. Monitor CBC sedimentation rate CRP and recheck procalcitonin. Possible viral infectious etiology or other bacterial infections have not completely been excluded. Dinora christiansen does not have signs of discitis on her MRI. She does has some inflammatory reactive changes in her left hip. Think this is more chronic. Than infectious. She has no abnormal exam findings and is not tender or red and has good movement in that hip on examination. Severe back pain without ability to ambulate. Patient has a history of degenerative disc disease with lumbar spine surgery. Her back pain is significantly exacerbated patient is unable to ambulate and walk. Due to her ongoing inflammatory infectious condition. Patient will be provided pain medication warm compresses continue with Tylenol and Motrin. And will potentially need to work with physical therapy occupational therapy. Dehydration. Patient with acute dehydration. She will be gently rehydrated she received a L in the emergency room. Provide rehydration therapy to the patient. She is also nauseated and dry heaving. Will provide antiemetics. Hopefully as we rehydrate her some of the symptoms will improve. Prophylaxis patient will be started on DVT prophylaxis.
--- NOTE | 2020-10-16 14:05 | PC.NURSE ---
Patient arrived to room 221 shortly after 11am. She has been comfortable up until now, will give patient some iv pain medication. She feels most comfortable lying on her r.side. Her skin is clear upon skin check, new iv just started to her l.ac, she has ivf infusing at 150cc/hr. in room and supportive. Tolerating ice water at this time and denies nausea.
[2020-10-16] MEDS: DEXTROSE 5%-0.9% NS 1,000 ML 175 ML IV (14:19)
[2020-10-16 14:31] LABS: Creatine Kinase 37 U/L (30-135)
[2020-10-16] MEDS: KETOROLAC 30 MG/ML VIAL IV ×2 (16:30→22:23)
[2020-10-16] MEDS: ACETAMINOPHEN 325 MG TABLET 650 MG PO (16:33)
[2020-10-16] MEDS: DEXTROSE 5%-0.9% NS 1,000 ML 150 ML IV (19:11)
[2020-10-16] MEDS: DOCUSATE 100 MG CAPSULE PO (22:23)
[2020-10-17] VITALS (17 sets, daily range): BP systolic 83–151; BP diastolic 54–65; PULSE 70–95; RESP 14–22; TEMP 37.2–39.6; O2SAT 93–99
[2020-10-17] MEDS: DEXTROSE 5%-0.9% NS 1,000 ML 150 ML IV ×2 (02:45→11:17)
[2020-10-17] MEDS: ACETAMINOPHEN 325 MG TABLET 650 MG PO ×3 (03:44→20:54)
--- NOTE | 2020-10-17 03:51 | PC.NURSE ---
C/O of mid sternal CP. Dr. Fischer automatic centrifugal station operator for Dr. Barry notified. Reported Pt. C/O CP pain level 7/10, Vital signs B/P 107/57, HR. 82 & Temp. 100.8 & was medicated with Dilaudid & Tylenol. Ordered to cancel an ECG & changed Dilaudid to Q4 hrs. PRN. Will cont. POC & monitor.
[2020-10-17 04:31] LABS: Enterococcus species Not Detected (Not Detect); Listeria monocytogenes Not Detected (Not Detect); Staphylococcus species Not Detected (Not Detect)
[2020-10-17 04:32] LABS: Acinetobacter baumannii Not Detected (Not Detect); Enterobacteriaceae species Not Detected (Not Detect); Streptococcus agalactiae (Gr B Not Detected (Not Detect); Streptococcus pneumonia Not Detected (Not Detect); Streptococcus pyogenes (Gr A) Not Detected (Not Detect); Streptococcus species Detected (Not Detect)
[2020-10-17 04:33] LABS: Candida albicans Not Detected (Not Detect); Candida glabrata Not Detected (Not Detect); Candida krusei Not Detected (Not Detect); Candida parapsilosis Not Detected (Not Detect); Candida tropicalis Not Detected (Not Detect); E. coli Not Detected (Not Detect); Enterobacter cloacae complex Not Detected (Not Detect); Haemophilus influenzae Not Detected (Not Detect); Neisseria meningitidis Not Detected (Not Detect); Proteus species Not Detected (Not Detect); Pseudomonas aeruginosa Not Detected (Not Detect); Serratia marcescens Not Detected (Not Detect)
[2020-10-17] MEDS: KETOROLAC 30 MG/ML VIAL IV (04:37)
[2020-10-17 06:04] LABS: Add Manual Diff / Slide Review NO; Basophils Absolute Auto 0 /uL (0-100); Basophils Percent Auto 0.4 % (0-2); Eosinophils Absolute Auto 0 /uL (0-450); Eosinophils Percent Auto 0.6 % (2-4); Hematocrit 30.5 % (36-46); Hemoglobin 10.5 g/dL (12.0-16.0); Lymphocytes Absolute Auto 800 /uL (1100-4500); Lymphocytes Percent Auto 14.8 % (25-40); Mean Corpuscular HGB Conc 34.4 % (30-36); Mean Corpuscular Hemoglobin 31.3 PG (26-34); Monocytes Absolute Auto 600 /uL (0-900); Monocytes Percent Auto 11.4 % (3-14); Neutrophils Absolute Auto 3700 /uL (1500-7000); Neutrophils Percent Auto 72.8 % (50-75); Platelet Count 143 X10^3/uL (150-400); Red Blood Cell Count 3.35 X10^6/uL (4.0-5.2); Red Cell Distribution Width 12.8 % (11.6-14.8); White Blood Cell Count 5.1 X10^3/uL (4.5-11.0)
[2020-10-17 06:37] LABS: C-Reactive Protein Quant 5.3 mg/dL (<1.0)
[2020-10-17 06:42] LABS: Alanine Aminotransferase 17 IU/L (<35); Albumin 2.9 g/dL (3.5-5.0); Albumin Globulin Ratio 1.2 (1.0-2.8); Alkaline Phosphatase 44 U/L (38-126); Aspartate Aminotransferase 20 IU/L (14-36); BUN Creatinine Ratio 23.9 (6-22); Bilirubin Total 0.6 mg/dL (0.2-1.3); Blood Urea Nitrogen 11 mg/dL (7-17); Calcium 7.6 mg/dL (8.4-10.2); Carbon Dioxide 28 mmol/L (22-32); Chloride 108 mmol/L (98-107); Estimated Glomerular Filt Rate > 60.0 mL/min (>60); Globulin 2.4 g/dL (1.7-4.1); Glucose 122 mg/dL (70-100); HEMOLYSIS < 15 (0-50); Potassium 3.5 mmol/L (3.4-5.1); Sodium 135 mmol/L (137-145); Total Protein 5.3 g/dL (6.3-8.2)
[2020-10-17 06:46] LABS: Procalcitonin 0.42 ng/mL (<0.5)
[2020-10-17 07:05] LABS: Erythrocyte Sedimentation Rate 31 MM/HR (0-20)
--- NOTE | 2020-10-17 07:26 | DI.ECHO.S_ITS ---
[facility]---------+ [facility] +---------+ : : [address] [place] [place] : : : : [id number] : : : : Phone: [phone]+ Echocardiogram Report + + :Name: SARABJIT ENGLE Study Date: 10/17/2020 Height: 66 in : :Hospital ReadingLocation: Weight: 165 lb : : Gender: Female BSA: 1.8 m2 : :: 1965 Age: 55 yrs BP: 107/57 mmHg: :Reason For Study: POSITIVE BLOOD CULTURES, FEVER OF UNKNOWN : :SOURCE : :Ordering Physician: Eva : :Hospitalist Performed By: Nicki Rojas : :Referring: FREYA YANG : + + Interpretation Summary There is normal left ventricular wall thickness. The ejection fraction is estimated to be 60-65%. The right ventricle is normal in size and function. There is mild tricuspid regurgitation. Compared to the prior echo exam, there has been an increase in TR severity. The right ventricular systolic pressure is estimated to be at least 58 mmHg based on an estimated right atrial pressure of 15 mm Hg. There is moderate-severe pulmonary hypertension. Compared to the prior echo exam, there has been an increase in the severity of pulmonary hypertension. Incidental finding of gallbladder stone. No obvious valvular vegetation seen. If clinical suspicion for endocarditis is high, consider JULIO CESAR. Procedure: A two-dimensional transthoracic echocardiogram with color flow and Doppler was performed. The study quality was technically adequate. Comparison is made with the echocardiogram of 08/14/2013. The patient was in normal sinus rhythm during the exam. The patient had a bundle branch block rhythm during the exam. Left Ventricle: There is normal left ventricular wall thickness. The estimated left ventricular end diastolic volume is 94 ml. The left ventricle is normal in size. There is no ventricular septal defect visualized. The ejection fraction is estimated to be 60-65%. Septal motion is consistent with conduction abnormality. MV E/A: 1.4 Med Peak E' Guerrero: 9.1 cm/sec E/E' med: 11.3. Right Ventricle: The right ventricle is normal in size and function. Atria: There is moderate biatrial enlargement. Both atria have significantly increased in size since the prior echo exam. There is no Doppler evidence for an interatrial shunt. Mitral Valve: There is mild mitral annular calcification. The mitral valve leaflets are mildly calcified. There is no vegetation seen on the mitral valve. There is trace mitral regurgitation. Aortic Valve: The aortic valve opens well. The aortic valve is slightly calcified. The aortic valve is trileaflet. There is no aortic valvular vegetation. No aortic regurgitation is present. Tricuspid Valve: The tricuspid valve is normal. There is no tricuspid valve vegetation. There is mild tricuspid regurgitation. The right ventricular systolic pressure is estimated to be at least 58 mmHg based on an estimated right atrial pressure of 15 mm Hg. Compared to the prior echo exam, there has been an increase in TR severity. There is moderate-severe pulmonary hypertension. Compared to the prior echo exam, there has been an increase in the severity of pulmonary hypertension. Pulmonic Valve: The pulmonic valve is not well seen, but is grossly normal. There is no obvious vegetation on the pulmonic valve. There is trace pulmonic regurgitation. Great Vessels: The aortic root is normal size. The ascending aorta is at the upper limits of normal in size. The IVC is dilated (diameter is greater than 2.1 cm) and it collapses less than 50% with a sniff. This suggests a high right atrial pressure of 15 mm Hg. Pericardium/ Pleura There is no pericardial effusion. Incidental finding of gallbladder stone. MMode/2D Measurements & Calculations LVIDd: 5.9 cm LVOT diam: 1.9 cm LVIDs: 3.5 cm Ao root diam: 3.4 cm FS: 40.8 % Aortic Jxn: 2.7 cm EPSS: 0.48 cm asc Aorta Diam: 3.4 cm IVSd: 0.67 cm LVPWd: 0.70 cm LV parson. diameter/BSA (cm/m^2): 3.2 LV sys. diameter/BSA (cm/m^2): 1.9 LA A2 area: 24.9 cm2 RA long axis: 5.3 cm LA A4 area: 26.0 cm2 RA area: 22.7 cm2 LA length (vol): 6.8 cm RA vol: 83.1 ml LA vol: 81.2 ml RA : 45.1 ml/m2 LA vol index: 44.0 ml/m2 IVC diam: 2.6 cm RVD1 (basal): 3.7 cm RVD2 (mid): 2.8 cm TAPSE: 3.6 cm Doppler Measurements & Calculations Ao V2 max: 197.0 cm/sec LVOT Max Guerrero: 123.1 cm/sec Ao V2 mean: 134.7 cm/sec LV V1 max P.1 mmHg Ao max P.5 mmHg LV V1 VTI: 21.0 cm Ao mean P.4 mmHg SAÚL(I,D): 1.9 cm2 Ao V2 VTI: 32.9 cm SAÚL(V,D): 1.8 cm2 sev ratio: 0.64 SAÚL indexed to BSA (cm^2/m^2): 1.0 MV E max guerrero: 102.5 cm/sec TR max guerrero: 327.7 cm/sec MV A max guerrero: 75.1 cm/sec TR max P.0 mmHg MV E/A: 1.4 PA V2 max: 65.4 cm/sec Med Peak E' Guerrero: 9.1 cm/sec PA V2 mean: 50.8 cm/sec E/E' med: 11.3 PA mean P.1 mmHg Lat Peak E' Guerrero: 13.0 cm/sec PA Accel Time: 0.06 sec E/E' lat: 7.9 E/e' average: 9.6 MV dec time: 0.14 sec MV P1/2t: 40.7 msec MV P1/2t max guerrero: 102.8 cm/sec SV(LVOT): 61.0 ml MVA(P1/2t): 5.4 cm2 Reading Physician:01:10 PM
--- NOTE | 2020-10-17 07:50 | PM.PN.1 ---
Subjective Subjective Date Patient Seen: 10/17/20 Time Patient Seen: 07:50 Interval history: Patient seen and evaluated this morning still feeling quite crummy. Only able to get out of bed with 2 people. Pain still in her very low back sacroiliac. Patient has some numbness there to a previous back surgery. Do not feel any crepitation abscess no heat or warmth. Temperatures on and off throughout the evening last night. Still lots of pain requiring pain medication. Some mild nausea not really wanting to eat generally feels sick. Ongoing headache fevers and chills. I will to get up to go to the bathroom. Exam Vital Signs (past 8 hours): - 10/16/20 23:55 10/17/20 03:44 10/17/20 04:00 Temperature 97.9 F 100.8 F H 100.8 F H Pulse Rate 76 82 Respiratory Rate 15 18 Blood Pressure 98/51 L 107/57 L Pulse Oximetry 96 97 10/17/20 04:29 10/17/20 04:35 Temperature 99.2 F 99.2 F Pulse Rate Respiratory Rate Blood Pressure Pulse Oximetry Oxygen Delivery Method Room Air Oxygen Flow Rate 0 Narrative Exam Narrative: Gen.: Alert uncomfortable. Any movement in bed causes back distress HEENT: Pupils equal round and reactive or lows mucosa is dry. Neck is supple Cardio: S1-S2 regular rate and rhythm no heart murmur appreciated. Respiratory: Lungs are clear to auscultation no wheezes or crackles normal respiratory effort. Abdomen: Soft nontender no rebound or guarding no liver spleen enlargement no appreciable hernias Back. Patient has previous surgical scarring. Has some numbness around her lower lumbar sacral area. No redness. Patient does not have tenderness to palpation but pain with movement. Extremities: Generalized lower extremity weakness mainly due to pain. Neurologic: Grossly intact. Objective Labs Result Diagrams: 10/17/20 05:37 10/17/20 05:37 Labs: Laboratory Results - last 24 hr 10/16/20 10/16/20 10/16/20 07:25 07:25 07:25 WBC 6.3 RBC 4.23 Hgb 13.1 Hct 38.2 MCV 90.1 MCH 30.9 MCHC 34.3 RDW 12.9 Plt Count 165 Neut % (Auto) 74.3 Lymph % (Auto) 14.1 L [place] % (Auto) 11.2 Eos % (Auto) 0.2 L Baso % (Auto) 0.2 Neut # (Auto) 4700 Lymph # (Auto) 900 L [place] # (Auto) 700 Eos # (Auto) 0 Baso # (Auto) 0 ESR PT 14.9 H INR 1.3 APTT 29 Sodium Potassium Chloride Carbon Dioxide BUN Creatinine Estimated GFR BUN/Creatinine Ratio Glucose Lactate Calcium Total Bilirubin AST ALT Alkaline Phosphatase Total Creatine Kinase C-Reactive Protein Total Protein Albumin Globulin Albumin/Globulin Ratio Lipase Procalcitonin 0.63 H Urine Color Urine Appearance Urine pH Ur Specific [place] Urine Protein Urine Glucose (UA) Urine Ketones Urine Occult Blood Urine Nitrate Urine Bilirubin Urine Urobilinogen Ur Leukocyte Esterase Urine RBC Urine WBC Ur Squamous Epith Cells Urine Bacteria Urine Mucus Ur Culture Indicated? Micro UA Comment A. baumannii (PCR) Renu albicans (PCR) C. glabrata (PCR) C. krusei (PCR) C. parapsilosis (PCR) C. tropicalis (PCR) SARS-CoV-2 (PCR) Enterobacteriac sp PCR E. cloacae complex PCR Enterococcus sp PCR E. coli (PCR) H. influenzae (PCR) Klebsiella oxytoca PCR Klebsiella pneumoniae List. monocytogenes PCR N. meningitidis (PCR) Proteus species (PCR) Serratia marcescens PCR Staphylococcus sp PCR Staph aureus (PCR) mecA-Methicil Res Gene Streptococcus sp PCR Group A Strep (PCR) Strep agalactiae (PCR) Strep pneumoniae (PCR) P. aeruginosa (PCR) Maria G/B-Vanco Res Genes KPC-Carbap Res Gene PCR 10/16/20 10/16/20 10/16/20 07:25 07:25 07:25 WBC RBC Hgb Hct MCV MCH MCHC RDW Plt Count Neut % (Auto) Lymph % (Auto) [place] % (Auto) Eos % (Auto) Baso % (Auto) Neut # (Auto) Lymph # (Auto) [place] # (Auto) Eos # (Auto) Baso # (Auto) ESR 46 H PT INR APTT Sodium 136 L Potassium 4.1 Chloride 100 Carbon Dioxide 31 BUN 15 Creatinine 0.49 L Estimated GFR > 60.0 BUN/Creatinine Ratio 30.6 H Glucose 115 H Lactate 1.1 Calcium 9.0 Total Bilirubin 1.1 AST 26 ALT 26 Alkaline Phosphatase 63 Total Creatine Kinase C-Reactive Protein Total Protein 7.3 Albumin 4.2 Globulin 3.1 Albumin/Globulin Ratio 1.4 Lipase 70 Procalcitonin Urine Color Urine Appearance Urine pH Ur Specific [place] Urine Protein Urine Glucose (UA) Urine Ketones Urine Occult Blood Urine Nitrate Urine Bilirubin Urine Urobilinogen Ur Leukocyte Esterase Urine RBC Urine WBC Ur Squamous Epith Cells Urine Bacteria Urine Mucus Ur Culture Indicated? Micro UA Comment A. baumannii (PCR) Renu albicans (PCR) C. glabrata (PCR) C. krusei (PCR) C. parapsilosis (PCR) C. tropicalis (PCR) SARS-CoV-2 (PCR) Enterobacteriac sp PCR E. cloacae complex PCR Enterococcus sp PCR E. coli (PCR) H. influenzae (PCR) Klebsiella oxytoca PCR Klebsiella pneumoniae List. monocytogenes PCR N. meningitidis (PCR) Proteus species (PCR) Serratia marcescens PCR Staphylococcus sp PCR Staph aureus (PCR) mecA-Methicil Res Gene Streptococcus sp PCR Group A Strep (PCR) Strep agalactiae (PCR) Strep pneumoniae (PCR) P. aeruginosa (PCR) Maria G/B-Vanco Res Genes KPC-Carbap Res Gene PCR 10/16/20 10/16/20 10/16/20 07:25 07:25 09:24 WBC RBC Hgb Hct MCV MCH MCHC RDW Plt Count Neut % (Auto) Lymph % (Auto) [place] % (Auto) Eos % (Auto) Baso % (Auto) Neut # (Auto) Lymph # (Auto) [place] # (Auto) Eos # (Auto) Baso # (Auto) ESR PT INR APTT Sodium Potassium Chloride Carbon Dioxide BUN Creatinine Estimated GFR BUN/Creatinine Ratio Glucose Lactate Calcium Total Bilirubin AST ALT Alkaline Phosphatase Total Creatine Kinase C-Reactive Protein 3.9 H Total Protein Albumin Globulin Albumin/Globulin Ratio Lipase Procalcitonin Urine Color Urine Appearance Urine pH Ur Specific [place] Urine Protein Urine Glucose (UA) Urine Ketones Urine Occult Blood Urine Nitrate Urine Bilirubin Urine Urobilinogen Ur Leukocyte Esterase Urine RBC Urine WBC Ur Squamous Epith Cells Urine Bacteria Urine Mucus Ur Culture Indicated? Micro UA Comment A. baumannii (PCR) Not detected Renu albicans (PCR) Not detected C. glabrata (PCR) Not detected C. krusei (PCR) Not detected C. parapsilosis (PCR) Not detected C. tropicalis (PCR) Not detected SARS-CoV-2 (PCR) Negative Enterobacteriac sp PCR Not detected E. cloacae complex PCR Not detected Enterococcus sp PCR Not detected E. coli (PCR) Not detected H. influenzae (PCR) Not detected Klebsiella oxytoca PCR Not detected Klebsiella pneumoniae Not detected List. monocytogenes PCR Not detected N. meningitidis (PCR) Not detected Proteus species (PCR) Not detected Serratia marcescens PCR Not detected Staphylococcus sp PCR Not detected Staph aureus (PCR) Not detected mecA-Methicil Res Gene Not Reportable Streptococcus sp PCR Detected H Group A Strep (PCR) Not detected Strep agalactiae (PCR) Not detected Strep pneumoniae (PCR) Not detected P. aeruginosa (PCR) Not detected Maria G/B-Vanco Res Genes Not Reportable KPC-Carbap Res Gene PCR Not Reportable 10/16/20 10/16/20 10/17/20 09:24 14:11 05:37 WBC 5.1 RBC 3.35 L Hgb 10.5 L Hct 30.5 L MCV 91.0 MCH 31.3 MCHC 34.4 RDW 12.8 Plt Count 143 L Neut % (Auto) 72.8 Lymph % (Auto) 14.8 L [place] % (Auto) 11.4 Eos % (Auto) 0.6 L Baso % (Auto) 0.4 Neut # (Auto) 3700 Lymph # (Auto) 800 L [place] # (Auto) 600 Eos # (Auto) 0 Baso # (Auto) 0 ESR PT INR APTT Sodium Potassium Chloride Carbon Dioxide BUN Creatinine Estimated GFR BUN/Creatinine Ratio Glucose Lactate Calcium Total Bilirubin AST ALT Alkaline Phosphatase Total Creatine Kinase 37 C-Reactive Protein Total Protein Albumin Globulin Albumin/Globulin Ratio Lipase Procalcitonin Urine Color Yellow Urine Appearance Clear Urine pH 6.0 Ur Specific [place] 1.020 Urine Protein Negative Urine Glucose (UA) Trace H Urine Ketones Trace H Urine Occult Blood Negative Urine Nitrate Negative Urine Bilirubin Negative Urine Urobilinogen 0.2 Ur Leukocyte Esterase Trace H Urine RBC None seen Urine WBC 5-10/hpf H Ur Squamous Epith Cells 5-10 /hpf H Urine Bacteria Few (2-10) H Urine Mucus 1+ H Ur Culture Indicated? Culture not indicate Micro UA Comment A. baumannii (PCR) Renu albicans (PCR) C. glabrata (PCR) C. krusei (PCR) C. parapsilosis (PCR) C. tropicalis (PCR) SARS-CoV-2 (PCR) Enterobacteriac sp PCR E. cloacae complex PCR Enterococcus sp PCR E. coli (PCR) H. influenzae (PCR) Klebsiella oxytoca PCR Klebsiella pneumoniae List. monocytogenes PCR N. meningitidis (PCR) Proteus species (PCR) Serratia marcescens PCR Staphylococcus sp PCR Staph aureus (PCR) mecA-Methicil Res Gene Streptococcus sp PCR Group A Strep (PCR) Strep agalactiae (PCR) Strep pneumoniae (PCR) P. aeruginosa (PCR) Maria G/B-Vanco Res Genes KPC-Carbap Res Gene PCR 10/17/20 10/17/20 10/17/20 05:37 05:37 05:37 WBC RBC Hgb Hct MCV MCH MCHC RDW Plt Count Neut % (Auto) Lymph % (Auto) [place] % (Auto) Eos % (Auto) Baso % (Auto) Neut # (Auto) Lymph # (Auto) [place] # (Auto) Eos # (Auto) Baso # (Auto) ESR 31 H D PT INR APTT Sodium 135 L Potassium 3.5 Chloride 108 H Carbon Dioxide 28 BUN 11 Creatinine 0.46 L Estimated GFR > 60.0 BUN/Creatinine Ratio 23.9 H Glucose 122 H Lactate Calcium 7.6 L Total Bilirubin 0.6 AST 20 ALT 17 Alkaline Phosphatase 44 Total Creatine Kinase C-Reactive Protein Total Protein 5.3 L Albumin 2.9 L Globulin 2.4 Albumin/Globulin Ratio 1.2 Lipase Procalcitonin 0.42 Urine Color Urine Appearance Urine pH Ur Specific [place] Urine Protein Urine Glucose (UA) Urine Ketones Urine Occult Blood Urine Nitrate Urine Bilirubin Urine Urobilinogen Ur Leukocyte Esterase Urine RBC Urine WBC Ur Squamous Epith Cells Urine Bacteria Urine Mucus Ur Culture Indicated? Micro UA Comment A. baumannii (PCR) Renu albicans (PCR) C. glabrata (PCR) C. krusei (PCR) C. parapsilosis (PCR) C. tropicalis (PCR) SARS-CoV-2 (PCR) Enterobacteriac sp PCR E. cloacae complex PCR Enterococcus sp PCR E. coli (PCR) H. influenzae (PCR) Klebsiella oxytoca PCR Klebsiella pneumoniae List. monocytogenes PCR N. meningitidis (PCR) Proteus species (PCR) Serratia marcescens PCR Staphylococcus sp PCR Staph aureus (PCR) mecA-Methicil Res Gene Streptococcus sp PCR Group A Strep (PCR) Strep agalactiae (PCR) Strep pneumoniae (PCR) P. aeruginosa (PCR) Maria G/B-Vanco Res Genes KPC-Carbap Res Gene PCR 10/17/20 05:37 WBC RBC Hgb Hct MCV MCH MCHC RDW Plt Count Neut % (Auto) Lymph % (Auto) [place] % (Auto) Eos % (Auto) Baso % (Auto) Neut # (Auto) Lymph # (Auto) [place] # (Auto) Eos # (Auto) Baso # (Auto) ESR PT INR APTT Sodium Potassium Chloride Carbon Dioxide BUN Creatinine Estimated GFR BUN/Creatinine Ratio Glucose Lactate Calcium Total Bilirubin AST ALT Alkaline Phosphatase Total Creatine Kinase C-Reactive Protein 5.3 H Total Protein Albumin Globulin Albumin/Globulin Ratio Lipase Procalcitonin Urine Color Urine Appearance Urine pH Ur Specific [place] Urine Protein Urine Glucose (UA) Urine Ketones Urine Occult Blood Urine Nitrate Urine Bilirubin Urine Urobilinogen Ur Leukocyte Esterase Urine RBC Urine WBC Ur Squamous Epith Cells Urine Bacteria Urine Mucus Ur Culture Indicated? Micro UA Comment A. baumannii (PCR) Renu albicans (PCR) C. glabrata (PCR) C. krusei (PCR) C. parapsilosis (PCR) C. tropicalis (PCR) SARS-CoV-2 (PCR) Enterobacteriac sp PCR E. cloacae complex PCR Enterococcus sp PCR E. coli (PCR) H. influenzae (PCR) Klebsiella oxytoca PCR Klebsiella pneumoniae List. monocytogenes PCR N. meningitidis (PCR) Proteus species (PCR) Serratia marcescens PCR Staphylococcus sp PCR Staph aureus (PCR) mecA-Methicil Res Gene Streptococcus sp PCR Group A Strep (PCR) Strep agalactiae (PCR) Strep pneumoniae (PCR) P. aeruginosa (PCR) Maria G/B-Vanco Res Genes KPC-Carbap Res Gene PCR [facility] Medical History Degenerative disc disease, cervical Insomnia Kidney stones Obstructive sleep apnea Palpitations (09/07/11) Snoring (09/07/11) Surgical History H/O melanoma excision History of bilateral salpingo-oophorectomy (BSO) History of left salpingo-oophorectomy (2008) History of spinal fusion Status post vaginal hysterectomy Family History Family/Other Dementia Father Loud snoring Hypertension Heart disease Alcohol abuse Mother Loud snoring Alcohol abuse Family/Other Depression Bipolar disorder Social History marital status: household members: spouse Smoking Status: Never smoker alcohol intake: current substance use type: does not use Assessment & Plan Assessment & Plan narrative: Patient with weakness headache low-grade fevers and chills. One set of blood cultures came back preliminary positive. Probably a contaminate. Although considering her underlying symptomatology. Cannot rule out blood infection. Repeat blood cultures now and recheck a set of blood cultures with temperature. I do not hear suspicious murmur on examination. But will go ahead and proceed with an echocardiogram to rule out endocarditis. Obtain an EKG as well of the heart. Inflammatory markers are still quite high such as sed rate CRP white blood cell counts still normal. Procalcitonin is normal. Still unknown etiology of fever at this point. Cannot disc fluid underlying viral infection versus inflammatory response to recent vaccination. Severe back pain without ability to ambulate. MRI was reviewed again. Reviewed the case quickly with orthopedic spine surgery. Do not think SI joint inflammation irritation is due to an infectious process. More due to arthritis. Significant spinal degenerative disc disease with the facet arthritis bulging. Especially in her lower lumbar spine where her pains at. Patient still unable to ambulate. Requiring pain medication for control. Dehydration. Patient with acute dehydration. IV fluid rehydration happened yesterday. I think she is now more euvolemic. Having good urine output. Kidney function is appropriate. Will back off on IV fluids. Prophylaxis patient will be started on DVT prophylaxis.
[2020-10-17] MEDS: HYDROMORPHONE 0.5 MG INJ IV ×4 (08:09→20:04)
[2020-10-17] MEDS: DOCUSATE 100 MG CAPSULE PO ×2 (08:09→22:17)
[2020-10-17] MEDS: ENOXAPARIN 40 MG/0.4 ML SYRINGE SUBCUT (08:13)
[2020-10-17] MEDS: IBUPROFEN 600 MG TABLET PO (10:16)
[2020-10-17] MEDS: diazePAM 10 MG/2 ML SYRINGE 2 MG IV ×2 (10:50→19:21)
--- NOTE | 2020-10-17 11:00 | PC.NURSE ---
Addendum entered by Selam Dorsey R.N. 10/17/20 14:29: Patients temp 101.1, given tylenol and down to 100. Patient also given dilaudid 0.5mg with some pain relief. She is resting comfortably now. Addendum entered by Selam Dorsey R.N. 10/17/20 11:30: Patient complained of nausea, given zofran. She is now getting her echo and remains in room. He is helpful with her care. Original Note: Patient given 0.5mg of iv dilaudid and helpful for a couple of hours. Her Hari helped her with a shower and after getting back to bed her pain went up to a 10. Called and got orders for valium and just given to patient. She wants to hold off on the iv steroid at this time and states that she is feeling better after the valium given. She was shaking and stated that her hands were cold and the rest of her body was warm. Given warm blankets and helpful. A second blood culture was ordered for patient as wanted these ordered if patient had a fever, and she did at 100.1. Will check on patient frequently to make sure she is comfortable and pain free.
[2020-10-17] MEDS: ONDANSETRON 4 MG/2 ML INJ IV ×2 (11:17→21:00)
[2020-10-17] MEDS: DEXTROSE 5%-0.9% NS 1,000 ML 75 ML IV (12:00)
[2020-10-17] MEDS: VANCOMYCIN 1,000 MG/200 ML PIGGYBACK 200 MG IV (22:17)
[2020-10-17] MEDS: HYDROMORPHONE 1 MG INJ IV (22:18)
[2020-10-18] VITALS (9 sets, daily range): BP systolic 86–96; BP diastolic 56–63; PULSE 67–82; RESP 15–18; TEMP 36.9–38; O2SAT 93–97
[2020-10-18] MEDS: HYDROMORPHONE 1 MG INJ IV ×10 (00:19→21:39)
[2020-10-18] MEDS: DEXTROSE 5%-0.9% NS 1,000 ML 75 ML IV (00:20)
[2020-10-18] MEDS: IBUPROFEN 600 MG TABLET PO (02:19)
[2020-10-18] MEDS: ACETAMINOPHEN 325 MG TABLET 650 MG PO ×2 (04:09→10:43)
--- NOTE | 2020-10-18 04:35 | PC.NURSE ---
Addendum entered by An Campbell R.N. 10/18/20 06:27: Fever broke at 0600. Pain medication given. Original Note: Pt stable at start of shift, in pain, hypotensive, ambulating 2x assist from BSC to bed. BP low despite pain and movement. Non-symptomatic, HR WNL. Pain medication given. Pt has slight fever at 0200, at 100.0 F. Given ibuprofen for fever and IV dilaudid to control pain. At 0400, pt fever elevated to 100.4 F, given acetaminophen for fever and IV dilaudid to control pain.
[2020-10-18 06:02] LABS: Add Manual Diff / Slide Review NO; Basophils Absolute Auto 0 /uL (0-100); Basophils Percent Auto 0.1 % (0-2); Eosinophils Absolute Auto 0 /uL (0-450); Eosinophils Percent Auto 0.4 % (2-4); Hematocrit 29.4 % (36-46); Lymphocytes Absolute Auto 900 /uL (1100-4500); Lymphocytes Percent Auto 15.2 % (25-40); Mean Corpuscular Hemoglobin 31.2 PG (26-34); Mean Corpuscular Volume 91.9 fL (80-100); Monocytes Absolute Auto 700 /uL (0-900); Monocytes Percent Auto 11.7 % (3-14); Neutrophils Absolute Auto 4100 /uL (1500-7000); Neutrophils Percent Auto 72.6 % (50-75); Platelet Count 151 X10^3/uL (150-400); Red Cell Distribution Width 13.1 % (11.6-14.8); White Blood Cell Count 5.7 X10^3/uL (4.5-11.0)
[2020-10-18 06:09] LABS: C-Reactive Protein Quant 6.1 mg/dL (<1.0); HEMOLYSIS < 15 (0-50); Potassium 3.9 mmol/L (3.4-5.1)
[2020-10-18 06:10] LABS: Alanine Aminotransferase 21 IU/L (<35); Albumin 2.8 g/dL (3.5-5.0); Albumin Globulin Ratio 1.2 (1.0-2.8); Alkaline Phosphatase 43 U/L (38-126); Aspartate Aminotransferase 24 IU/L (14-36); BUN Creatinine Ratio 19.6 (6-22); Bilirubin Total 0.7 mg/dL (0.2-1.3); Blood Urea Nitrogen 10 mg/dL (7-17); Calcium 7.7 mg/dL (8.4-10.2); Carbon Dioxide 31 mmol/L (22-32); Chloride 108 mmol/L (98-107); Estimated Glomerular Filt Rate > 60.0 mL/min (>60); Globulin 2.4 g/dL (1.7-4.1); Glucose 110 mg/dL (70-100); Sodium 136 mmol/L (137-145); Total Protein 5.2 g/dL (6.3-8.2)
[2020-10-18 07:03] LABS: Erythrocyte Sedimentation Rate 32 MM/HR (0-20)
[2020-10-18] MEDS: DOCUSATE 100 MG CAPSULE PO ×2 (08:54→19:10)
[2020-10-18] MEDS: ENOXAPARIN 40 MG/0.4 ML SYRINGE SUBCUT (08:54)
--- NOTE | 2020-10-18 10:19 | PM.PN.1 ---
Subjective Subjective Date Patient Seen: 10/18/20 Time Patient Seen: 10:19 Interval history: Patient is still having severe low back pain. Does not hurt when she does not move but if she tries to move in any way shape or form it is really quite excruciating. Really no better today than it was when she came to the hospital. Was febrile overnight to 102+ although it did come down and is afebrile this morning No additional symptoms. Somewhat concerned about her bowels with all of the pain meds and her inability to set up an do anything so that is inappropriate concern All blood cultures obtained since admission are growing Streptococcus species yet to be identified. Echocardiogram essentially unremarkable except for some tricuspid valve disease, which has been seen before although slightly worse with evidence of pulmonary hypertension Patient does report going to the dentist for routine cleaning the day prior to the onset of her symptoms. Perhaps that is a clue to what is going on with her. Exam Vital Signs (past 8 hours): - 10/18/20 04:06 10/18/20 04:09 10/18/20 06:18 Temperature 100.4 F H 100.4 F H 98.7 F Pulse Rate 82 Respiratory Rate 16 Blood Pressure 88/56 L Pulse Oximetry 97 10/18/20 07:55 Temperature 98.7 F Pulse Rate 71 Respiratory Rate 16 Blood Pressure 86/56 L Pulse Oximetry 96 Oxygen Delivery Method Room Air Oxygen Flow Rate 0 Objective Labs Result Diagrams: 10/18/20 05:25 10/18/20 05:25 Labs: Laboratory Results - last 24 hr 10/18/20 10/18/20 10/18/20 05:25 05:25 05:25 WBC 5.7 RBC 3.20 L Hgb 10.0 L Hct 29.4 L MCV 91.9 MCH 31.2 MCHC 34.0 RDW 13.1 Plt Count 151 Neut % (Auto) 72.6 Lymph % (Auto) 15.2 L [place] % (Auto) 11.7 Eos % (Auto) 0.4 L Baso % (Auto) 0.1 Neut # (Auto) 4100 Lymph # (Auto) 900 L [place] # (Auto) 700 Eos # (Auto) 0 Baso # (Auto) 0 ESR 32 H Sodium 136 L Potassium 3.9 Chloride 108 H Carbon Dioxide 31 BUN 10 Creatinine 0.51 L Estimated GFR > 60.0 BUN/Creatinine Ratio 19.6 Glucose 110 H Calcium 7.7 L Total Bilirubin 0.7 AST 24 ALT 21 Alkaline Phosphatase 43 C-Reactive Protein 6.1 H Total Protein 5.2 L Albumin 2.8 L Globulin 2.4 Albumin/Globulin Ratio 1.2 COUNTS INCLUDE 234 BEDS AT THE [facility] Medical History Degenerative disc disease, cervical Insomnia Kidney stones Obstructive sleep apnea Palpitations (09/07/11) Snoring (09/07/11) Surgical History H/O melanoma excision History of bilateral salpingo-oophorectomy (BSO) History of left salpingo-oophorectomy (2008) History of spinal fusion Status post vaginal hysterectomy Family History Family/Other Dementia Father Loud snoring Hypertension Heart disease Alcohol abuse Mother Loud snoring Alcohol abuse Family/Other Depression Bipolar disorder Social History marital status: household members: spouse Smoking Status: Never smoker alcohol intake: current substance use type: does not use Assessment & Plan Assessment & Plan narrative: 1. Fever-patient clearly has a systemic streptococcal infection concerning for blood borne infection such as endocarditis I suppose I can not rule out diskitis given her severe back pain that certainly would be a likely source of infection to trying connect pain with a site of infection. However MRI was really quite unremarkable in that regard despite the fact blood cultures drawn were positive. Sed rate is remarkably low for either an endocarditis or aid lumbar spine diskitis. C-reactive protein is somewhat elevated. White count remains normal. Overall with the fever with the positive blood cultures (100% of blood cultures) growing the same organism she clearly has a streptococcal infection. Highly suspicious for cardiac source. Will continue with IV antibiotics in particular vancomycin until species and sensitivities have been identified at the lab. Hopefully appropriate treatment of her infection will result in improvement in her overall other systemic symptoms. She is modestly hypotensive although at baseline is somewhat hypotensive with systolic blood pressures at home traditionally in the 110-120 range. I am going to increase her IV fluids and again hopefully appropriate treatment of infection will reverse this. She is asymptomatic but she is also lying in bed not moving. I do not think this is an acute viral syndrome I do not think this has any relationship to her coronavirus vaccination that she received on October 02. 2. Back pain-this is the debilitating factor which is bit unusual which is why I am still concerned this could be a source of infection. May need repeat MRI I am not convinced we need to do that today. I will kind a hold on that waiting for her clinical course. She is getting modestly high dose Dilaudid as well as Valium as needed and I think in addition of a corticosteroid might help with the back pain as well and I do not believe that would have a negative affect on her ability to fight infection. Hopefully with treatment of her systemic issue as above back pain will begin to resolve as well. If not may need to consult Orthopedic surgery/spine surgery for thoughts regarding repeat imaging and or appropriate treatment currently. 3. GI-I agree we need to focus on managing her bowels given her limited physical mobility we do not want her to even approach constipation. Therefore I will increase her bowel meds today as well Discussed at length with patient and her spouse is in the room. Answered all questions. Excess of 30 minutes was spent on the floor reviewing her chart lab results microbiology results discussing with patient and spouse etcetera.
[2020-10-18] MEDS: methylPREDNISolone 125 MG/2 ML VIAL 60 MG IV (10:39)
[2020-10-18] MEDS: VANCOMYCIN 1,500 MG/300 ML PIGGYBACK 200 MG IV (10:56)
[2020-10-18] MEDS: DEXTROSE 5%-0.9% NS 1,000 ML 125 ML IV ×2 (13:51→22:51)
[2020-10-18] MEDS: diazePAM 10 MG/2 ML SYRINGE 2 MG IV ×2 (14:06→21:12)
[2020-10-18] MEDS: BISACODYL 10 MG SUPP PR (14:08)
--- NOTE | 2020-10-18 16:48 | CM.IDA ---
Initial DCP Assessment Note Patient is a 55 yo female, resident of [place]. Patient presents w/severe and persistent back pain and fever, found to have strep in her blood, site of infection still unknown. Patient currently on IV abx, Dr Fischer has seen patient today, Ortho consult is being considered if her back pain does not subside w/steroids. PCP: Saman Barry Payer: Sabrina Reviewed chart. 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 Met w/patient and her Hari in room today, both look quite overwhelmed, patient complaining of discomfort and spouse asks for RN Ever to assess for persistent fever. 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 Plan: DC likely return home w/supportive spouse to assist, DCP will follow closely in case any DC needs or concerns arise. MART Griffin
--- NOTE | 2020-10-18 17:19 | PC.NURSE ---
Addendum entered by Dee Dee Arshad R.N. 10/18/20 22:39: Declines tylenol and ibuprofen. States valium and dilaudid offer greatest relief. Warm blankets and cold packs provided. Pt c/o right rib cage pain. Warm blanket applied and pt reports this is helpful. Describes as soreness. Has had several small stools this evening shift with relief in abdominal discomfort. Spouse has left for the evening. Afebrile this shift. Addendum entered by Dee Dee Arshad R.N. 10/18/20 21:29: Pt tearful re spasms/pain in back 04/11. States needs to urinate but feels unprepared to get up to commode d/t pain. Valium iv administered and bedpan placed with pt able to turn to side with assistance. Original Note: Pt drowsy, but awake and appropriate lying supine in bed. Able to move legs BL independently and reports full sensation to BL LE's. Equally warm and pink extremities. Pt admits to pain to lower back R > L 4/10 when lying still and this increases significantly with movement per pt statement. Pts abdomen is distended and pt reports passing flatus with need for bowel movement. Warm prune juice with pat of melted butter and josie butch given to pt. Pt denies nausea. Declines offer for ibuprofen. IV dilaudid administered as per emar. Encouraged to call for needs. Spouse present and attentive, involved in pt's care.
[2020-10-18] MEDS: VANCOMYCIN 1,250 MG/250 ML PIGGYBACK 250 MG IV (19:10)
[2020-10-19] VITALS (9 sets, daily range): BP systolic 107–127; BP diastolic 59–76; PULSE 63–77; RESP 16–19; TEMP 36–37.2; O2SAT 93–98
[2020-10-19] MEDS: HYDROMORPHONE 1 MG INJ IV ×8 (01:16→18:50)
[2020-10-19] MEDS: VANCOMYCIN 1,250 MG/250 ML PIGGYBACK 150 MG IV (02:21)
[2020-10-19] MEDS: diazePAM 10 MG/2 ML SYRINGE 2 MG IV (02:21)
[2020-10-19] MEDS: IBUPROFEN 600 MG TABLET PO (05:01)
[2020-10-19] MEDS: ACETAMINOPHEN 325 MG TABLET 650 MG PO ×2 (05:01→20:53)
[2020-10-19 05:09] LABS: Add Manual Diff / Slide Review NO; Basophils Absolute Auto 0 /uL (0-100); Basophils Percent Auto 0.2 % (0-2); Eosinophils Absolute Auto 0 /uL (0-450); Eosinophils Percent Auto 0.4 % (2-4); Hematocrit 29.9 % (36-46); Hemoglobin 10.3 g/dL (12.0-16.0); Lymphocytes Absolute Auto 1000 /uL (1100-4500); Lymphocytes Percent Auto 17.2 % (25-40); Mean Corpuscular HGB Conc 34.3 % (30-36); Mean Corpuscular Hemoglobin 31.2 PG (26-34); Mean Corpuscular Volume 90.8 fL (80-100); Monocytes Absolute Auto 600 /uL (0-900); Monocytes Percent Auto 10.4 % (3-14); Neutrophils Absolute Auto 4300 /uL (1500-7000); Neutrophils Percent Auto 71.8 % (50-75); Platelet Count 179 X10^3/uL (150-400); Red Cell Distribution Width 12.6 % (11.6-14.8)
[2020-10-19 05:34] LABS: BUN Creatinine Ratio 18.2 (6-22); Blood Urea Nitrogen 8 mg/dL (7-17); C-Reactive Protein Quant 5.5 mg/dL (<1.0); Calcium 8.1 mg/dL (8.4-10.2); Carbon Dioxide 30 mmol/L (22-32); Chloride 109 mmol/L (98-107); Estimated Glomerular Filt Rate > 60.0 mL/min (>60); Glucose 105 mg/dL (70-100); HEMOLYSIS < 15 (0-50); Potassium 4.5 mmol/L (3.4-5.1); Sodium 137 mmol/L (137-145)
[2020-10-19 05:37] LABS: Erythrocyte Sedimentation Rate 30 MM/HR (0-20)
--- NOTE | 2020-10-19 07:16 | PC.NURSE ---
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 Medicated with IV Dilaudid, IV diazepam, Tylenol, and ibuprofen per prn orders. She has been afebrile, SR, BP stable, see vital trends.
[2020-10-19] MEDS: DEXTROSE 5%-0.9% NS 1,000 ML 125 ML IV (07:26)
--- NOTE | 2020-10-19 08:29 | PC.NURSE ---
Addendum entered by Julia Jamison R.N. 10/19/20 10:19: Patient medicated with 1mg IVP dilaudid before transferring to side of the bed to void. with husbands help patient able to log roll and stand at the side of the bed, voided 300cc, had small amount of liquid stool. Patient able to stand while linens were changed, took a few steps forward. Patient reports pain is better, transition from bed to standing is much improved per patient. Original Note: Patient reports back pain and a sharp pain to right side rib cage. Given 1mg IVP dilaudid. Declines valium at this time. Denies nausea, but reports no appetite. Scd's applied. at bedside.
[2020-10-19] MEDS: DOCUSATE 100 MG CAPSULE PO (08:32)
[2020-10-19] MEDS: ENOXAPARIN 40 MG/0.4 ML SYRINGE SUBCUT (08:33)
[2020-10-19] MEDS: methylPREDNISolone 125 MG/2 ML VIAL 60 MG IV (08:34)
[2020-10-19] MEDS: VANCOMYCIN TROUGH 1 REQUEST MISC (10:46)
[2020-10-19 11:25] LABS: Vancomycin Trough 11.9 ug/mL (10-20)
--- NOTE | 2020-10-19 11:42 | DI.MRI.S_ITS ---
PROCEDURE: MR LUMBAR SPINE WO/W CON INDICATIONS: discitis TECHNIQUE: Noncontrast sagittal T1 spin echo and T2 fast spin echo, sagittal STIR, axial T1 and T2 fast spin echo through the lumbar spine. In cases with scoliosis, additional coronal T2 fast spin echo may be performed. After the administration of contrast, sagittal and axial T1 spin echo with fat saturation through the lumbar spine. COMPARISON: [facility], MR, L-SPINE WITHOUT CONTRAST, 02/24/2012, 18:15. [facility], CT, CT KIDNEY URETER BLADDER (KUB), 05/21/2020, 21:23. [facility], MR, MR LUMBAR SPINE WO/W CON, 10/16/2020, 8:15. [facility], CR, XR CHEST 1V, 10/16/2020, 11:01. FINDINGS: Image quality: This examination is limited by involuntary motion artifact. Alignment and curvature: There is moderate levoconvex lumbar scoliosis. There is minimal anterolisthesis at the L3-L4 level. Grade 1 retrolisthesis is seen at L5-S1. Marrow: Marrow is of normal overall signal. No acute vertebral body compression fractures. No suspicious marrow enhancement. Spinal cord: Conus medullaris terminates at the L1 level. Visualized spinal cord demonstrates normal signal, without suspicious enhancement. No findings of epidural abscess. Paraspinous soft tissues: No paravertebral masses or abnormal enhancement. T11-T12: At least moderate loss of disc height and disc signal can be seen. Reactive marrow endplate changes are seen which are hypointense on T1-weighted imaging and hyperintense on T2 weighted imaging, which is most consistent with edema (Modic type I changes). Mild generalized disc bulge is seen. There is mild left-sided and no right-sided neural foraminal narrowing seen. Mild central canal narrowing is seen. When comparison is made with the prior examination, these findings are similar. T12-L1: No significant abnormality is seen. L1-L2: Level within normal limits. L2-L3: At least moderate loss of disc height is seen. Loss of disc signal is seen. Moderate generalized disc bulge is seen. Moderate facet joint hypertrophy is seen. There is moderate right-sided and mild left-sided neural foraminal narrowing seen. Moderate central canal narrowing is seen. When comparison is made with the prior examination, these findings are similar. L3-L4: There is at least moderate loss of disc height seen. There is increased T2 weighted signal seen along this disc level. Reactive marrow endplate changes are seen, which demonstrate mixed T1 weighted and T2-weighted signal, and are attributed to a combination of edema and fatty metaplasia (Modic type I and Modic type II changes). There is a mild amount of enhancement seen along the disc level. At least moderate disc bulge is seen at this level. There is moderate to prominent facet hypertrophy seen. Associated hypertrophy of the ligamentum flavum can be seen. There is at least moderate right-sided and no left-sided neural foraminal narrowing seen. At least moderate central canal narrowing can be seen. When comparison is made with the prior examination, these findings are similar. L4-L5: Vertebral body fusion is seen at this level. There has been removal of portions of the posterior elements. Mild to moderate facet hypertrophy is seen. There is mild right-sided and no left-sided neural foraminal narrowing. The central canal is widely patent. Stable from the prior study. L5-S1: Moderate loss of disc height is seen. Loss of disc signal is seen. There is at least moderate facet hypertrophy at this level. There is moderate to severe left-sided neural foraminal narrowing and there is moderate right-sided neural foraminal narrowing. There is a mild degree of compression seen upon the exiting nerve roots, left worse than right. The central canal is widely patent. When comparison is made with the prior examination, these findings are similar. Stable degenerative changes are seen of the sacroiliac joints. IMPRESSION: Multiple levels of degenerative change are seen, which are overall worst at the L3-L4 level. The increased signal along this disc level and the mild enhancement along the disc level itself and the enhancement of the endplates are supportive of the clinical diagnosis of discitis. No findings of an epidural abscess can be seen. Prior postoperative changes are seen inferiorly. Levoconvex lumbar scoliosis. Dictated by: Lewis Driscoll M.D. on 10/19/2020 at 14:38 Approved by: Lewis Driscoll M.D. on 10/19/2020 at 14:49
--- NOTE | 2020-10-19 11:44 | P.PN_ITS ---
Subjective Subjective Date Patient Seen: 10/19/20 Time Patient Seen: 11:45 Interval history: Patient lying in bed with her knees up. Moving a little bit better with a little less pain. Having issues with her bowels which are now too loose. Still does not have much of an appetite. Has now gone 24 hours without a fever. Blood cultures are all (x6) growing the same species of Streptococcus, which upon research appears to be mostly an oral/dental organism in humans Denies any difficulty moving her legs although difficult to ascertain with all of the low back pain. When she does get pain or moves her legs it centered in the back not all in the legs themselves. No difficulty emptying her bladder or controlling her stool although the liquid stool makes that a bit more difficult. Exam Vital Signs (past 8 hours): - 10/19/20 05:00 10/19/20 08:01 Temperature 96.8 F L 99.0 F Pulse Rate 75 72 Respiratory Rate 16 18 Blood Pressure 111/70 107/59 L Pulse Oximetry 95 93 Oxygen Delivery Method Room Air Oxygen Flow Rate 0 Objective Labs Result Diagrams: 10/19/20 04:40 10/19/20 04:40 Labs: Laboratory Results - last 24 hr 10/19/20 10/19/20 10/19/20 04:40 04:40 10:42 WBC 6.0 RBC 3.30 L Hgb 10.3 L Hct 29.9 L MCV 90.8 MCH 31.2 MCHC 34.3 RDW 12.6 Plt Count 179 Neut % (Auto) 71.8 Lymph % (Auto) 17.2 L Dawes % (Auto) 10.4 Eos % (Auto) 0.4 L Baso % (Auto) 0.2 Neut # (Auto) 4300 Lymph # (Auto) 1000 L Dawes # (Auto) 600 Eos # (Auto) 0 Baso # (Auto) 0 ESR 30 H Sodium 137 Potassium 4.5 Chloride 109 H Carbon Dioxide 30 BUN 8 Creatinine 0.44 L Estimated GFR > 60.0 BUN/Creatinine Ratio 18.2 Glucose 105 H Calcium 8.1 L C-Reactive Protein 5.5 H Vancomycin Trough 11.9 Microbiology 10/17/20 09:54 Blood Blood Culture - Final Streptococcus sanguinis 10/17/20 09:44 Blood Blood Culture - Final Streptococcus sanguinis 10/17/20 08:05 Blood Blood Culture - Final Streptococcus sanguinis 10/17/20 07:55 Blood Blood Culture - Final Streptococcus sanguinis 10/16/20 08:55 Blood Blood Culture - Final Streptococcus sanguinis 10/16/20 07:25 Blood Blood Culture - Final Streptococcus sanguinis [facility] Medical History Degenerative disc disease, cervical Insomnia Kidney stones Obstructive sleep apnea Palpitations (09/07/11) Snoring (09/07/11) Surgical History H/O melanoma excision History of bilateral salpingo-oophorectomy (BSO) History of left salpingo-oophorectomy (2008) History of spinal fusion Status post vaginal hysterectomy Family History Family/Other Dementia Father Loud snoring Hypertension Heart disease Alcohol abuse Mother Loud snoring Alcohol abuse Family/Other Depression Bipolar disorder Social History marital status: household members: spouse Smoking Status: Never smoker alcohol intake: current substance use type: does not use Assessment & Plan Assessment & Plan narrative: 1. Streptococcal bacteremia possibly infective endocarditis with metastatic spread to the back verses primary diskitis verses other source of infection. Clearly she has a source of infection likely from the dental cleaning she had the day before the onset of symptoms. At this point I am going to simplify her antibiotic regimen based on protocols for treatment of endocarditis and or diskitis with ceftriaxone 2 g IV Q 24 hours which would also be appropriate for outpatient treatment. She has been afebrile for 24 hours which would suggest appropriate treatment is ongoing and she is maybe minimally better with her back This point however I think the diagnosis is still somewhat in question at least the source of her infection. Is is truly endocarditis or is disappear diskitis or they connected orders or some other source we have yet to identified. I would be concerned about possibility of something like an epidural abscess that is formed etcetera even though there really are not any active objective symptoms at this time. I think repeat imaging with an MRI would be appropriate and will trying get that done today. I think repeat echocardiography would also be appropriate although whether doing it as transthoracic verses transesophageal is a bit up in the air and perhaps consultation with Cardiology would be appropriate. This point will continue on antibiotic therapy patient is not ready for discharge at given the persistent severe pain and inability to walk etcetera. 2. Back pain-again I think this is secondary to process going on in the back could be all muscular the symptoms she is describing some more muscular than actual vertebral column or spine or neurologic fortunately so my low index of suspicion for something like an epidural abscess is low but again the diagnosis is some in question although we have yet to have more than 24 hours afebrile we really not been adequately treating her infection until the last 24 hours and may likely take additional time if the musculoskeletal back pain is a conseq uence of the systemic infection Note: Greater than 30 minutes was spent evaluating the patient on the floor, including examining the patient, discussing clinical course with clinical and nursing staff, reviewing clinical course in the computer, preparing documentation and writing orders for continued management of care, discussing status with family as appropriate, reviewing plans for the next 24 hours with both patient/family and nursing staff as appropriate.
[2020-10-19] MEDS: CEFTRIAXONE 2 GM/50 ML FROZ.PIGGY IV (12:20)
--- NOTE | 2020-10-19 17:45 | RT ---
Patient with known mild JOSÉ, currently working with dentist on mouth appliance to help treat OJSÉ, not able to tolerate a home CPAP [ End ]
[2020-10-19] MEDS: SODIUM CHLORIDE 0.9% FLUSH 10 ML IV (20:52)
[2020-10-20] VITALS (7 sets, daily range): BP systolic 115–128; BP diastolic 70–79; PULSE 63–79; RESP 16–18; TEMP 36.4–37.1; O2SAT 93–98
--- NOTE | 2020-10-20 02:34 | PC.NURSE ---
2335 Patient is alert and oriented. Breath sounds diminished at bases but CTA with RA sat of 95%. HRR. Does complain of tenderness over left side of chest which she states has been present x 2 days and states MD was made aware. Denies nausea. BT present and is passing flatus. Denies dysuria, frequency or urgency with urination. Is able to turn with assistance upon patient request. States she was able to get out of bed more during the day and spouse assisted her into bathroom; staff is assisting with walker and 1 assist. Does complain of 4/10 back and right rib pain which is sharp upon movement but declines offer of pain medication. Refusing to wear SCD's so reminded to ankle wave when awake. Fall risk score is high but patient is oriented and is unable to get out of bed by herself so alarm is not activated at this time.
[2020-10-20] MEDS: ONDANSETRON 4 MG/2 ML INJ IV ×2 (04:39→12:13)
[2020-10-20] MEDS: ACETAMINOPHEN 325 MG TABLET 650 MG PO ×4 (06:24→22:03)
[2020-10-20] MEDS: IBUPROFEN 600 MG TABLET PO ×2 (06:24→12:08)
--- NOTE | 2020-10-20 08:40 | P.PN_ITS ---
Subjective Subjective Date Patient Seen: 10/20/20 Time Patient Seen: 08:00 Interval history: Patient seen. Reviewed with Dr. Fischer weekend care. Patient states still a lot of back pain discomfort. Had a good afternoon yesterday. Little worse this morning. Fevers and chills achiness is much improved. Lower back is still quite uncomfortable. She was able to work with assistance to the bathroom which is good news. Reviewed care with nurse today also. Reviewed vital signs. Laboratory test imaging results nursing care notes and Dr. Fischer is notes over the weekend. Of note. Patient is also complaining of some mild chest tightness. Like she can not get a full breath. She has feels like she can not catch her air. This started a in the last 24 hours. She is not sure if it is just musculoskeletal or what. Exam Vital Signs (past 8 hours): - 10/20/20 04:19 10/20/20 06:00 10/20/20 08:11 Temperature 98.6 F 98.6 F 97.6 F Pulse Rate 70 78 79 Respiratory Rate 16 16 16 Blood Pressure 115/78 123/75 125/79 Pulse Oximetry 98 97 97 Oxygen Delivery Method Room Air Oxygen Flow Rate 0 Narrative Exam Narrative: Gen.: Alert good historian. HEENT: Pupils equal round and reactive or mucosa is moist neck is supple Cardio: S1-S2 regular rate and rhythm no murmur appreciated Respiratory: Mild decreased breath sounds at lung bases. No increased work of breathing Abdomen: Soft mild distention no rebound no guarding Spine: Pain and lower back area. No pain to deep palpation. She has some numbness over previous surgical site. No signs of redness or abscess. Extremities: Normal reflexes. Good strength. Pain with movement of her lower extremities and her back Objective Labs Result Diagrams: 10/19/20 04:40 10/19/20 04:40 Labs: Laboratory Results - last 24 hr 10/19/20 10:42 Vancomycin Trough 11.9 PFSH Medical History Degenerative disc disease, cervical Insomnia Kidney stones Obstructive sleep apnea Palpitations (09/07/11) Snoring (09/07/11) Surgical History H/O melanoma excision History of bilateral salpingo-oophorectomy (BSO) History of left salpingo-oophorectomy (2008) History of spinal fusion Status post vaginal hysterectomy Family History Family/Other Dementia Father Loud snoring Hypertension Heart disease Alcohol abuse Mother Loud snoring Alcohol abuse Family/Other Depression Bipolar disorder Social History marital status: household members: spouse Smoking Status: Never smoker alcohol intake: current substance use type: does not use Assessment & Plan Assessment & Plan narrative: Diskitis patient's repeat MRI shows L3-L4 increased signal intensity along this this level with mild enhancement which is changed from her previous MRI which fits with the clinical diagnosis of diskitis. Obviously blood borne spread from the Streptococcus bacteria in her blood stream. Patient had dental procedure done a couple of days before onset of fevers chills and headache. Patient's Streptococcus bacteria is pansensitive. We will consult with Spine surgery and see if they would like to see this patien t although she has no signs of osteomyelitis or abscess. We will continue to monitor closely inflammatory markers which have been elevated. She will continue with ceftriaxone 2 g IV 24 hours. Patient will have a PICC line placed she will need outpatient antibiotics. Streptococcus bacteremia patient had 6 blood cultures positive with Streptococcus. Potential sources recent dental cleaning. Sensitive to all antibiotics. Continue with ceftriaxone. Patient is feeling better from fever chills rigors standpoint. Concern for infectious endocarditis patient's echocardiogram shows no valvular pathology. Although transesophageal echocardiogram would be the best diagnostic pathway. We will hold off on that at this point because treatment would be the same as treatment of her diskitis which is long-term antibiotics for 4-6 weeks. Will continue with ceftriaxone 2 g IV 24 hours. And will discuss care with Cardiology. Shortness of breath. Patient with now shortness of breath in last 24 hours. Patient has received a lot of fluids. Also she has been bed-bound and not moving she is on DVT prophylaxis with Lovenox she has [address]Ds[address] Like to do [address] angiogram of chest to rule out underlying pulmonary emboli did not do a D-dimer this obviously would be elevated due to her underlying infection. Disposition and plan PICC line placement today physical therapy CT chest to rule out pulmonary emboli consultation with Infectious Disease and lumbar spine surgery.
--- NOTE | 2020-10-20 09:14 | PT-IP ANOTE ---
Physical therapy order received and chart reviewed. Patient leaving room for testing at this time and is not available for evaluation. Will check back later today for evaluation when pt available.
--- NOTE | 2020-10-20 09:41 | DI.CT.S_ITS ---
PROCEDURE: CT ANGIO CHEST PE PROTOCOL INDICATIONS: Shortness of breath rule out PE TECHNIQUE: After the administration of intravenous contrast, 2 mm thick sections acquired from the pulmonary apices to the posterior costophrenic angles. 3-dimensional maximum intensity projection (MIP) coronal and sagittal reformats were then acquired through the thorax. For radiation dose reduction, the following was used: automated exposure control, adjustment of mA and/or kV according to patient size. COMPARISON: None. FINDINGS: Image quality: Excellent. Pulmonary arteries: Pulmonary arteries are normal in size, and demonstrate no intraluminal filling defects to suggest central pulmonary embolism. Lungs and pleura: 2-3 millimeter calcified granuloma noted in the right upper lobe. mall bilateral pleural effusions. Focal consolidation of the lung bases bilaterally which likely represents compressive atelectasis, however pneumonia cannot be excluded by imaging alone. Central and peripheral airways are patent. Mediastinum: Heart size is normal, without pericardial effusion. No mediastinal or hilar adenopathy. Thoracic aorta is normal in caliber and enhancement. Esophagus is normal in caliber, without hiatal hernia. Bones and chest wall: No suspicious bony lesions. Ribs and thoracic spine appear intact throughout. Thyroid gland is within normal limits. No axillary or supraclavicular adenopathy. Abdomen: Visualized upper abdominal solid organs appear normal in the early arterial phase of enhancement. IMPRESSION: 1. No pulmonary embolus. 2. Small bilateral pleural effusions. 3. Focal consolidation in the lung bases bilaterally likely represents compressive atelectasis, however pneumonia cannot be excluded by imaging alone. Recommend correlation with clinical and laboratory data. Dictated by: Nichol Lockwood MD, PhD on 10/20/2020 at 8:54 Approved by: Nichol Lockwood MD, PhD on 10/20/2020 at 9:00
[2020-10-20] MEDS: DOCUSATE 100 MG CAPSULE PO ×2 (09:44→22:03)
[2020-10-20] MEDS: diazePAM 10 MG/2 ML SYRINGE 2 MG IV (09:45)
[2020-10-20] MEDS: ENOXAPARIN 40 MG/0.4 ML SYRINGE SUBCUT (09:45)
[2020-10-20] MEDS: methylPREDNISolone 125 MG/2 ML VIAL 60 MG IV (09:45)
[2020-10-20] MEDS: SODIUM CHLORIDE 0.9% FLUSH 10 ML IV ×2 (09:45→22:03)
--- NOTE | 2020-10-20 10:56 | DI.RAD.S_ITS ---
PROCEDURE: XR CHEST FOR PICC 1V INDICATIONS: [facility] 9:17. FINDINGS: PICC was placed by the intravenous therapy team from the right side. Fluoroscopic spot film demonstrates the tip of PICC projecting to the area of distal SVC. IMPRESSION: Tip of PICC projects to the area of the distal SVC Dictated by: Gregory Ramirez M.D. on 10/20/2020 at 11:18 Approved by: Gregory Ramirez M.D. on 10/20/2020 at 11:19
[2020-10-20] MEDS: CEFTRIAXONE 2 GM/50 ML FROZ.PIGGY IV (11:57)
[2020-10-20 12:07] LABS: C-Reactive Protein Quant 2.7 mg/dL (<1.0)
--- NOTE | 2020-10-20 14:48 | PT.IIE ---
Current Diagnoses Fever, unspecified (10/16/20) Surgical History (Last Reviewed 10/18/20 @ 10:21 by Austin Fischer MD) H/O melanoma excision History of bilateral salpingo-oophorectomy (BSO) History of left salpingo-oophorectomy (2008) History of spinal fusion Status post vaginal hysterectomy Medical History (Last Reviewed 10/18/20 @ 10:21 by Austin Fischer MD) Degenerative disc disease, cervical Insomnia Kidney stones Obstructive sleep apnea Palpitations (09/07/11) Snoring (09/07/11) Physical Therapy Inpatient Evaluation/Re-Eval M1 PT/OT-IP Prior Functional Status Start: 10/20/20 08:45 Freq: NEEDED Status: Active Protocol: Document 10/20/20 14:48 DLM (Rec: 10/20/20 17:49 DLM [id number]) Medical Review Prior Functional Status Medical History Reviewed Yes Diet/Fluid Consistency Regular Communication WNL Mobility and Gait Independent without a device, active Activities of Daily Living and IADL's Independent Social History Household Members spouse Living Arrangements House Number of Floors (Floors) One Floor 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 Her Spouse owns his own business and has a flexible schedule. M2 PT-IP Current Condition Start: 10/20/20 08:45 Freq: NEEDED Status: Active Protocol: Document 10/20/20 14:48 DLM (Rec: 10/20/20 17:49 DLM [id number]) Physical Therapy Current Condition Current Condition Evaluation Date 10/20/20 Treatment Diagnosis Discitis, back pain, impaired gait Onset Date 10/16/20 Precautions Lumbar Precautions Log Roll Other Precautions allow modified back positions to manage her pain, hx of degenerative changes and fusion in lumbar spine with no hardware in place M3 PT-IP Subjective Start: 10/20/20 08:45 Freq: NEEDED Status: Active Protocol: Document 10/20/20 14:48 DLM (Rec: 10/20/20 17:49 DLM [id number]) Subjective Physical Therapy Visit Type Type Initial Evaluation Visit Start Time 14:00 Visit Stop Time 14:48 Total Visit Minutes 48 Number of SPOOLER RUBBER STRAND Visits 0 Physical Therapy Visit Comments Patient Comments She reports it has been a busy day, she would like to try to sit up in the recliner. Patient Goals Discharge home with her to help her. Therapy Pain Assessment Pain When Pain Assessed After Treatment Pain Present Pain Present Pain Reported Location Back Intensity 4 Scale Used Numeric (0 - 10) Description Aching Pain Behaviors Facial Grimacing,Guarding Pain Management Techniques Apply Cold,Re-positioning M4 PT-IP Mobility and Gait Start: 10/20/20 08:45 Freq: NEEDED Status: Active Protocol: Document 10/20/20 14:48 DLM (Rec: 10/20/20 17:49 DL [id number]) PT-Bed Mobility Assessment Rolling Level of Assist Independent Supine to Sit Supine to Sit Standby Assistance Scooting Scooting to Edge of Bed Independent PT-Transfer Assessment Sit to and From Stand Sit to and from Stand Standby Assistance,Use of Upper Extremities Equipment Transfer Assistive Device Front Wheeled Walker Transfers Transfer Destination Chair Transfer Technique Stand Step Pivot Transfer Ability Level of Assist Standby Assistance Comments Mobility Comments supporting her back with UE's on FWW, pt up to recliner this visit, she has less pain in sitting when leans to left and recliner in upright position, tried reclining the chair but it increased her pain, mild nausea after activity while sitting up, pt given wet wash cloth to manage her symptoms Gait Assessment Gait Gait Assistance Required: Standby Assistance,Contact Guard Assist Distance (Feet) 25 Assistive Devices Assistive Device Front Wheeled Walker Gait Deviations General Gait Pattern Decreased Stride Length,Flexed Trunk Factors Limiting Gait Function Factors Limiting Gait Function Pain Comments Gait Comments she reports her pain with weight bearing on right LE is better today during gait, using modified standing posture during gait to manage her low back pain PT-Balance Assessment Sitting Balance and Reactions Static Sitting Balance Ability Good Dynamic Sitting Balance Ability Good Standing Balance and Reactions Static Standing Balance Ability Good Dynamic Standing Balance Ability Good Device Used FWW M5 PT-IP Objective Assessments Start: 10/20/20 08:45 Freq: NEEDED Status: Active Protocol: Document 10/20/20 14:48 DLM (Rec: 10/20/20 17:49 DL [id number]) Orientation Orientation/Cognition Level of Alertness Alert Orientation Name,Age,Birthday,Month,Date, Year,Day of Week,Place, Situation Language Function Ability No Deficits Noted Safety Awareness Understands Safety Issues Memory Description No Deficits Noted Gross Range of Motion Upper Extremity ROM Assessment Within Functional Limits Lower Extremity ROM Assessment Within Functional Limits Strength Upper Extremity Strength Assessment Within Functional Limits Lower Extremity Strength Assessment Within Functional Limits Comments Strength Comments she reports no feeling of LE weakness, only back pain that limits functional strength Coordination Assessment Gross Coordination Gross Coordination WNL Sensation Assessment Sensation Gross Sensation WNL Muscle Tone Muscle Tone WNL Yes M6 PT-IP Treatment Start: 10/20/20 08:45 Freq: NEEDED Status: Active Protocol: Document 10/20/20 14:48 DLM (Rec: 10/20/20 17:49 DLM [id number]) Physical Therapy Treatment Education Education Provided Safety Other Treatments Other Treatment Performed pt sitting up in recliner, education for pain management M7 PT-IP Assessment and Plan Start: 10/20/20 08:45 Freq: NEEDED Status: Active Protocol: Document 10/20/20 14:48 DLM (Rec: 10/20/20 17:54 DLM [id number]) PT Summary Assessment and Plan Potential Rehabilitation Potential Excellent Status of Condition at Evaluation Evolving Summary Impairments Pain,ROM,Strength,Bed Mobility ,Transfers,Gait,Activity Tolerance Assessment Summary Radha continues to have significant back pain that affects her mobility and gait. She reports her pain has improved during this admission . She is eager to increase her activity level. She tolerated gait in her room with fWW and sat up in recliner. Anticipate she will be safe to discharge home with her Spouse to assist her if she continue to progress well this admission. Goals Bed Mobility Goal Independent Transfer Goal Independent,Front Wheeled Walker Gait Goal Independent,Front Wheel Walker Gait Distance 150 feet Days to Meet Goals 4 Frequency of Treatment Frequency Of Treatment Twice a Day Treatment Plan Physical Therapy Treatment Plan Bed Mobility Training,Transfer Training,Gait Training, Therapeutic Exercise,Balance Retraining,Discharge Planning, Hot or Cold Pack Recommendations To Nursing Amount of Assist Needed Standby Assistance Discharge Recommendations PT Discharge Recommendations Home with Assistance Equipment Needed for Home Before FWW, pt plans to obtain it [facility] Transportation Needs at Discharge Private Vehicle
--- NOTE | 2020-10-20 15:41 | OT.IPNOTE ---
Pt not wanting to get up at this time as too tired but open to talking about ADl equipment needs. To see pt tomorrow for OT lizbeth.
[2020-10-20] MEDS: MAGNESIUM HYDROXIDE 30 ML UDC PO (17:44)
[2020-10-20] MEDS: IBUPROFEN 400 MG TABLET 800 MG PO ×2 (17:46→23:45)
[2020-10-21] MEDS: ACETAMINOPHEN 325 MG TABLET 650 MG PO ×2 (03:35→09:24)
[2020-10-21 03:46] VITALS: BP 122/84; PULSE 68; RESP 18; TEMP 36.9; O2SAT 96
[2020-10-21 05:18] LABS: Alanine Aminotransferase 17 IU/L (<35); Albumin Globulin Ratio 1.2 (1.0-2.8); Alkaline Phosphatase 43 U/L (38-126); Aspartate Aminotransferase 22 IU/L (14-36); BUN Creatinine Ratio 30.6 (6-22); Bilirubin Total 0.5 mg/dL (0.2-1.3); Blood Urea Nitrogen 15 mg/dL (7-17); Carbon Dioxide 33 mmol/L (22-32); Chloride 103 mmol/L (98-107); Estimated Glomerular Filt Rate > 60.0 mL/min (>60); Globulin 2.5 g/dL (1.7-4.1); Glucose 95 mg/dL (70-100); HEMOLYSIS 17 (0-50); Potassium 3.4 mmol/L (3.4-5.1); Sodium 136 mmol/L (137-145); Total Protein 5.5 g/dL (6.3-8.2)
[2020-10-21 05:20] LABS: Add Manual Diff / Slide Review NO; Basophils Absolute Auto 0 /uL (0-100); Basophils Percent Auto 0.4 % (0-2); Eosinophils Absolute Auto 0 /uL (0-450); Eosinophils Percent Auto 0.8 % (2-4); Hematocrit 30.1 % (36-46); Hemoglobin 10.4 g/dL (12.0-16.0); Lymphocytes Absolute Auto 1400 /uL (1100-4500); Lymphocytes Percent Auto 28.6 % (25-40); Mean Corpuscular HGB Conc 34.6 % (30-36); Mean Corpuscular Volume 89.6 fL (80-100); Monocytes Absolute Auto 500 /uL (0-900); Monocytes Percent Auto 10.8 % (3-14); Neutrophils Absolute Auto 2800 /uL (1500-7000); Neutrophils Percent Auto 59.4 % (50-75); Platelet Count 234 X10^3/uL (150-400); Red Blood Cell Count 3.36 X10^6/uL (4.0-5.2); Red Cell Distribution Width 12.6 % (11.6-14.8); White Blood Cell Count 4.7 X10^3/uL (4.5-11.0)
[2020-10-21 05:49] LABS: Erythrocyte Sedimentation Rate 36 MM/HR (0-20)
--- NOTE | 2020-10-21 07:49 | P.DS_ITS ---
History of Present Illness History of Present Illness Chief complaint: Back pain Narrative: 55-year-old female who comes in with lower lumbar back pain. Patient actually has not been feeling well since the 10 of October. 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 Patient was seen and evaluated and had a COVID test on the night. It was negative. Patient continued to have fevers chills rigors and shakes. Fever was low-grade do 100 on occasion 101. She gets chills achiness. Headache symptoms seem to be worse in the evening better during the day. She was seen and evaluated in the clinic by me with ongoing symptoms. Symptoms were consistent with fevers chills achiness weakness headache. Laboratory testing was done including a white blood cell count repeat of a COVID test procalcitonin. Patient had a viral swab also which was done testing for influenza. Laboratory tests were unrevealing. Patient the next day continued with her symptomatology and then began to have nausea and dry heaves and was not eating. She also began to have low back pain. Patient's low back pain progressed throughout the evening and day yesterday. To the point where she found it more more difficult to eat walk ambulate and was mainly confined to the bed. This morning she had a hard time getting out of bed because of the back pain spasms and discomfort. So she was brought to the emergency department. Patient feels sick to her stomach nauseated very weak achy headaches she has not had a temperature she says today. She has had no vomiting. She feels d ehydrated. She is having severe back pain. Is midline. There is no radicular pain. He goes to a sometimes both of her hips. She has not had loss of bladder or bowel control. Repeat laboratory testing was done in the emergency room which showed normal white blood cell count. Mildly elevation sed rate CRP procalcitonin mildly elevated chest x-ray normal urinalysis shows contamination repeat MRI have her back was done. Which showed no diskitis or inflammation. She has some mild reactive changes at her left hip. Discharge Providers Provider Date of admission: 10/16/20 10:43 Discharge Date: 10/21/20 Primary care physician: Saman Barry MD Consults: 10/20/20 08:34 Consult to Physical Therapy Evaluate & Treat Comment: Physician Instructions: Evaluate and Treat 10/20/20 11:01 Consult to Occupational Therapy Evaluate & Treat Comment: Evaluate for back brace for improved pain Physician Instructions: Evaluate and treat Discharge provider: Saman Barry MD Summary Hospital Course Discharge Diagnosis: Bacteremia blood infection Streptococcus sanguinous status post dental cleaning blood cultures positive x6 Patient admitted the hospital with fever chills recent exposure to COVID. COVID testing was negative. Recent injection with med during the vaccine. Initial white blood cell count was normal initial procalcitonin was normal [place] chest x-ray was normal initial urinalysis was normal. Patient had blood cultures done. Over the ensuing 24 hours patient continued to have fevers and chills with no identifiable source. Patient had significant back pain MRI of her back was done which was essentially unremarkable. Patient's blood culture eventually came back positive for strep sanguinous. Repeat blood cultures were done which ended up growing positive for strep multiple episodes. Patient was found to recently have a dental cleaning a few days before onset of symptoms. Patient had an echocardiogram to rule out vegetative disease. This was done transthoracic. Patient previously had a small tricuspid murmur which was found again. No acute vegetation seen. Patient had pulmonary hypertension. After patient was started on appropriate antibiotics to the rodriguez sensitive strep. Within 24 hours patient's fevers chills aches improved. And by 48 hours temperature was normal and patient was feeling better. Acute diskitis L3-L4 presumed Streptococcus sanguinous Patient's initial presentation with fevers and chills with back pain. [facility] MRI was negative for signs of infection. Due to ongoing increasing back pain. Positive blood cultures. Repeat MRI was done in the hospital. Repeat MRI showed inflammatory changes it at L3-L4 consistent with acute diskitis. Patient's culture results grew out strep sanguinous. Rodriguez sensitive. Patient was initially placed on vancomycin. This was converted to ceftriaxone 2 g IV. Once started on IV antibiotics and moderate dose of steroids over the ensuing 24 hours. Patient's back pain improved. After 48 hours patient was off all narcotics taking Tylenol Motrin ambulating with the assistance of the walker. In feeling comfortable to be home. Patient had a PICC line placed. Will be on long-term antibiotics for approximately 4 weeks with ceftriaxone 2 g IV Q 24 hours. Bilateral pleural effusions Patient began to have shortness of breath on day 4. Concerns about septic emboli to the lungs. Due to her recent bacteremia. CT scan of the chest was done which showed no septic emboli. Patient had some small amount of pleural effusions and at atelectasis which was the cause of her shortness of breath. Patient was provided with the breathing exercises. Tricuspid regurgitation. Patient had repeat echocardiogram here in the hospital patient had mild tricuspid regurg before. Due to the bacteremia diskitis concerns for infectious endocarditis. Trans esophageal echocardiogram was done which showed no new or worsening of heart murmur. No vegetations. Patient will be treated with appropriate antibiotics for diskitis. Which would also be similar treatment for infectious endocarditis. Patient had significant amount of pain in the hospital was unable to ambulate by the time of discharge she was doing much better. Patient was on DVT prophylaxis with Lovenox. Patient struggled with some constipation in the hospital as well. Status at Discharge Cognitive/behavioral status at discharge: at baseline, oriented Functional status at discharge: uses cane/walker Overall status at discharge: patient is not back to baseline Time Spent with Patient Time spent: Greater than 30 minutes Exam Vital Signs (past 8 hours): - 10/20/20 23:55 10/21/20 03:46 Temperature 98.1 F 98.5 F Pulse Rate 67 68 Respiratory Rate 18 18 Blood Pressure 117/71 122/84 Pulse Oximetry 97 96 Oxygen Delivery Method Room Air Oxygen Flow Rate 0 Narrative Exam Narrative: Gen.: Alert good historian HEENT: Pupils equal round and reactive or mucosa is moist Cardio: S1-S2 systolic murmur Respiratory: Lungs show decreased breath sounds at place is normal respiratory effort Abdomen: Soft nontender no rebound or guarding no liver spleen enlargement no appreciable hernias Extremities: Full range of motion. Neurologic: Grossly intact. Objective Labs Result Diagrams: 10/21/20 04:50 10/21/20 04:50 Labs: Laboratory Results - last 24 hr 10/20/20 10/21/20 10/21/20 11:25 04:50 04:50 WBC 4.7 RBC 3.36 L Hgb 10.4 L Hct 30.1 L MCV 89.6 MCH 31.0 MCHC 34.6 RDW 12.6 Plt Count 234 Neut % (Auto) 59.4 Lymph % (Auto) 28.6 [place] % (Auto) 10.8 Eos % (Auto) 0.8 L Baso % (Auto) 0.4 Neut # (Auto) 2800 Lymph # (Auto) 1400 [place] # (Auto) 500 Eos # (Auto) 0 Baso # (Auto) 0 ESR 36 H Sodium 136 L Potassium 3.4 Chloride 103 Carbon Dioxide 33 H BUN 15 Creatinine 0.49 L Estimated GFR > 60.0 BUN/Creatinine Ratio 30.6 H Glucose 95 Calcium 8.0 L Total Bilirubin 0.5 AST 22 ALT 17 Alkaline Phosphatase 43 C-Reactive Protein 2.7 H Total Protein 5.5 L Albumin 3.0 L Globulin 2.5 Albumin/Globulin Ratio 1.2 PFSH Medical History Degenerative disc disease, cervical Insomnia Kidney stones Obstructive sleep apnea Palpitations (09/07/11) Snoring (09/07/11) Surgical History H/O melanoma excision History of bilateral salpingo-oophorectomy (BSO) History of left salpingo-oophorectomy (2008) History of spinal fusion Status post vaginal hysterectomy Family History Family/Other Dementia Father Loud snoring Hypertension Heart disease Alcohol abuse Mother Loud snoring Alcohol abuse Family/Other Depression Bipolar disorder Social History marital status: household members: spouse Smoking Status: Never smoker alcohol intake: current substance use type: does not use Discharge Plan Discharge Plan Patient Disposition: Home Discharge orders & Medications Prescriptions: New acetaminophen 325 mg Tablet 650 mg PO Q4HR PRN (Reason: Pain, Mild (1-3)) Qty: 30 RF: 0 ceftriaxone in dextrose,iso-os 2 gram/50 mL Piggyback 2 g IV Q24H Qty: 24 RF: 0 hydrocodone-acetaminophen 10-325 mg Tablet 1 tab PO Q4HR PRN (Reason: Pain, Severe (7-10)) Qty: 30 RF: 0 ibuprofen 400 mg Tablet 800 mg PO Q6HR PRN (Reason: Fever/Mild Pain (1-3)) Qty: 30 RF: 0 prednisone 20 mg tablet See Rx Instructions .ROUTE .COMPLEX Qty: 30 RF: 0 Other Ambulatory Orders: Complete Blood Count AUTO DIFF (Routine) Timeframe: 1 Week Facility: [facility] - Location: Laboratory Ordered By: Saman Barry C-Reactive Protein Quant (Stat) Timeframe: 1 Week Facility: [facility] - Location: Laboratory Ordered By: Saman Barry Erythrocyte Sedimentation Rate (Stat) Timeframe: 1 Week Facility: [facility] - Location: Laboratory Ordered By: Saman Barry Follow up/Referrals: Saman Barry MD [Primary Care Provider] - Discharge Health Status Multidrug resistant organism: No MDRO Diet/Activity/Treatments Diet: Diet as Tolerated Activity: As tolerated Other treatments: PICC line care Skin/Wound/Dressing Care Report to your healthcare provider any signs of infection, such as:: chills, fev er, night sweats and increased pain Visit Report/Discharge Packet Visit Report Forms: Patient Portal/API Discharge Data Primary Care Provider: Saman Barry
[2020-10-21 08:00] VITALS: BP 118/72; PULSE 70; RESP 18; TEMP 36.9; O2SAT 97
--- NOTE | 2020-10-21 08:54 | OT.IP.TRT ---
Current Diagnoses Discitis, unspecified, site unspecified (10/16/20) Fever, unspecified (10/16/20) Occupational Therapy Treatment Note M3 OT- IP Subjective and Pain Start: 10/21/20 09:44 Freq: Status: Active Protocol: Document 10/21/20 09:45 [facility] (Rec: 10/21/20 09:52 [facility] [id number]) OT- Subjective Occupational Therapy Visit Type Type Treatment Note Visit Start Time 08:46 Visit Stop Time 08:54 Total Visit Minutes 8 Occupational Therapy Visit Comments Patient Comments Pt feeling much better today and looking to go home. Patient/Caregiver Goals TO go home. OT Pain Assessment Pain When Pain Assessed During Mobility Pain Present Pain Present Pain Reported M4 OT- IP ADL's Start: 10/21/20 09:44 Freq: Status: Active Protocol: Document 10/21/20 09:45 [facility] (Rec: 10/21/20 09:52 [facility] [id number]) OT GZL-Bbpb-Fsoilxd General Evaluation Self-Feeding Ability Independent OT ADL-Oral Care Comments Oral Care Comments NOt performed. OT ADL-Dressing Comments OT Dressing Comments Educated pt on use of pilot can router and sock aid to help increase ease to do LB dressing during back pain. Pt able to show good understanding and safety. Pt to have her go to [facility] to get equipment needs of pilot can router and sock aid. OT ADL-Toileting Comments OT Toileting Comments Suggested use of toilet paper aid as pt states at times due to increase unable to wipe. Pt states able to wipe on her own today. Suggested to get a BSC. OT ADL-Bathing Comments OT Bathing Comments Not performed. Pt's tub/shower is being remodeled and shower stall very small. Pt states to have her present when showering and possible may be able to fit the FWW in the shower verus shower stool. M6 OT- IP Functional Cognition Start: 10/21/20 09:44 Freq: Status: Active Protocol: Document 10/21/20 09:45 [facility] (Rec: 10/21/20 09:52 [facility] [id number]) Cognitive Factors Limiting Selfcare Function Cognitive Ability Level of Alertness Alert Patient Orientation Name,Age,Birthday,Month,Date, Year,Day of Week,Place, Situation Attention Span Ability Capable of Focused Attention, Capable of Sustained Attention Ability to Follow Commands Able to Follow Multi-Step Commands Memory Description No Deficits Noted Safety Awareness No Deficits Noted Executive Function Ability No Deficits Noted Cognitive Comments Cognitive Assessment Comments NO deficits M7 OT- IP Mobility and Balance Start: 10/21/20 09:44 Freq: Status: Active Protocol: Document 10/21/20 09:45 [facility] (Rec: 10/21/20 09:52 [facility] [id number]) OT-Transfer Assessment Sit to and From Stand Sit to and from Stand Standby Assistance Transfers Transfer Ability Standby Assistance Technique Transfer Destination Chair Transfer Technique Stand Step Pivot Devices Transfer Assistive Devices Front Wheeled Walker Comments Mobility Comments SBA with FWW M9 OT- IP Assessment and Plan Start: 10/21/20 09:44 Freq: Status: Active Protocol: Document 10/21/20 09:45 [facility] (Rec: 10/21/20 09:52 [facility] [id number]) OT Summary Assessment and Plan Summary Assessment Summary Pt looking to go home today and able to suggest ADL equipment needs for safety and to help with increased ease to do ADL needs. Pt's to go to [facility] to get equipment for pt -fww, BSc, pilot can router and sock aid. Pt to go home today. Discharge Recommendations OT Discharge Recommendations Home with Assistance Home Equipment Needs BSC,FWW, pilot can router, sock aid Transportation Needs at Discharge Private Vehicle
[2020-10-21] MEDS: methylPREDNISolone 125 MG/2 ML VIAL 60 MG IV (09:24)
[2020-10-21] MEDS: ENOXAPARIN 40 MG/0.4 ML SYRINGE SUBCUT (09:24)
[2020-10-21] MEDS: SODIUM CHLORIDE 0.9% FLUSH 10 ML IV (09:25)
--- NOTE | 2020-10-21 10:00 | PT-IP ANOTE ---
Attempted to see pt for AM treat but she stated she was feeling much better and had been up and around on her own this morning. Pt's is acquiring a FWW for home use before she goes home today. Pt felt confident with her mobility and denied PT needs at this time.
[2020-10-21] MEDS: CEFTRIAXONE 2 GM/50 ML FROZ.PIGGY IV (11:48)
[2020-10-21 12:00] VITALS: BP 106/63; PULSE 82; RESP 17; TEMP 37.2; O2SAT 95
--- NOTE | 2020-10-21 14:33 | PC.NURSE ---
Discharge note: Discharge instructions given to patient, discussed importance of F/U with Dr. Barry in 1 week, s/sx of infection, and new medications. PICC line to LYDIA flushing without difficulty. [facility] arranged for continued IV abx therapy outpatient (assisted). Dressed with minimal assistance. VSS and afebrile. Home via private vehicle accompanied by Hari.
--- NOTE | 2020-10-21 15:23 | CM.DPNOTE ---
DC Note According to Dr Barry, patient will DC today w/ 4 weeks of ongoing IV ceftriaxone Q24 via PICC (already placed) to treat Diskitis, Dr Barry will follow for physician orders. Met w/patient and she was agreeable to home infusion, provided MCR choice list and she requested [facility]. Placed call to [facility] discussed referral and faxed clinical packet for review, included face sheet, PICC line insertion assessment, med list and DC Summary Later learned that [facility] had coordinated directly w/patient and patient aware and agreeable to Plan: Home w/supportive spouse and [facility] to provide IV abx and RN for PICC line dressing changes, close outpatient f/u w/ Dr Barry. JW
== END 2020-10-21 14:20 | disposition home or self-care (01) | DRG 552 ==
LOC: ED 07:29 → AC 10:44
PROVIDERS: Internal Medicine; Admitting Provider Family Medicine; Emergency Provider Emergency Medicine; PCP Family Medicine; Referring Provider Emergency Medicine; Visit Provider Family Medicine
DX: M46.46 Discitis, unspecified, lumbar region (principal); R78.81 Bacteremia; J90 Pleural effusion, not elsewhere classified; J98.11 Atelectasis; B95.4 Other streptococcus as the cause of diseases classified elsewhere; E86.0 Dehydration; Z20.822 Contact with and (suspected) exposure to COVID-19; I07.1 Rheumatic tricuspid insufficiency; I27.20 Pulmonary hypertension, unspecified; I95.9 Hypotension, unspecified
CPT/HCPCS: 36415; 36569; 71045; 71275; 72158; 80048; 80053; 80202; 81001; 81003; 82550; 83605; 83690; 84145; 85025; 85610; 85651; 85730; 86140; 87040; 87150; 87186; 87205; 87633; 87635; 93306; 94762; 96361; 96374; 96375; 96376; 97162; 97535; 99222; 99232; 99233; 99238; 99284; C9803; A9579; J0696; J1170; J1642; J1650; J1885; J2405; J2930; J3360; Q9967

== ENCOUNTER → 2020-11-01 16:48 | Outpatient (ROUT) | payer OTHER, SELFPAY ==
[2020-10-16 12:36] VITALS: BMI 26.6
[2020-11-01 17:39] LABS: Erythrocyte Sedimentation Rate 9 MM/HR (0-20)
== END ==
PROVIDERS: PCP Family Medicine; Visit Provider Family Medicine
DX: M46.46 Discitis, unspecified, lumbar region (principal)
CPT/HCPCS: 85651

== ENCOUNTER → 2020-11-07 14:57 | Outpatient (CLI) | payer OTHER, SELFPAY ==
[2020-10-16 12:36] VITALS: BMI 26.6
--- NOTE | 2020-11-07 14:58 | DI.MRI.S_ITS ---
PROCEDURE: MR LUMBAR SPINE WO/W CON INDICATIONS: Severe low back pain. History of discitis TECHNIQUE: Noncontrast sagittal T1 spin echo and T2 fast spin echo, sagittal STIR, axial T1 and T2 fast spin echo through the lumbar spine. In cases with scoliosis, additional coronal T2 fast spin echo may be performed. After the administration of contrast, sagittal and axial T1 spin echo with fat saturation through the lumbar spine. COMPARISON: [facility], MR, MR LUMBAR SPINE WO/W CON, 10/19/2020, 14:06. [facility], MR, MR LUMBAR SPINE WO/W CON, 10/16/2020, 8:15. FINDINGS: Image quality: Excellent. Alignment and curvature: There is normal bony alignment. Marrow: Marrow is of normal overall signal except abutting the L3-L4 disc space where abnormal endplate enhancement extends slightly into the immediate adjacent inferior L3 and superior L4 vertebral body marrow space. No acute vertebral body compression fractures. No suspicious marrow enhancement. Spinal cord: Conus medullaris terminates at the L1 level. Visualized spinal cord demonstrates normal signal, without suspicious enhancement. Paraspinous soft tissues: No paravertebral masses or abnormal enhancement, except at the right anterolateral border of the L3-4 disc space on axial postcontrast imaging, seen on series 9, image 24. At this site there now is mild edema and enhancement without a fluid collection that is rim enhancing. An epidural abscess is not currently suspected. The pattern of degenerative changes, laminectomy dorsal to L4-5, and L4-L5 fusion procedure all are stable over time from the comparison recent MR scanning without and with contrast 10/19/20. IMPRESSION: With reference to the prior recent similar MRI through the lumbosacral spine there has been evolution of abnormality at the L3-L4 disc space, where increased fluid content and enhancement has developed which extends into the immediate adjacent endplates and slightly more deep into the vertebral body marrow space of L3 and L4, respectively. Slight enhancement now is seen within the right anterolateral paravertebral soft tissue at the disc space border of L3-L4. No abscess is found. A slight amount of fluid had been present within the L3-L4 disc space on sagittal T2 imaging from 10/19/20 but that now shows increased fluid signal, definite contrast enhancement, and extension of edema and enhancement into the adjacent osseous structures as discussed above. Note: Findings immediately called to and discussed with Dr. Noguera. Dictated by: Gregory Ramirez M.D. on 11/07/2020 at 16:12 Approved by: Gregory Ramirez M.D. on 11/07/2020 at 16:26
== END ==
PROVIDERS: PCP Family Medicine; Referring Provider Orthopaedic Surgery; Visit Provider Orthopaedic Surgery
DX: M54.5 Low back pain (principal)
CPT/HCPCS: 72158; A9579

== ENCOUNTER → 2020-12-09 09:51 | Outpatient (CLI) | payer OTHER, SELFPAY ==
[2020-10-16 12:36] VITALS: BMI 26.6
[2020-12-09 11:07] LABS: Add Manual Diff / Slide Review NO; Basophils Absolute Auto 0 /uL (0-100); Basophils Percent Auto 0.3 % (0-2); Eosinophils Absolute Auto 0 /uL (0-450); Hematocrit 38.3 % (36-46); Lymphocytes Absolute Auto 1400 /uL (1100-4500); Lymphocytes Percent Auto 32.8 % (25-40); Mean Corpuscular HGB Conc 34.1 % (30-36); Mean Corpuscular Hemoglobin 30.9 PG (26-34); Mean Corpuscular Volume 90.6 fL (80-100); Monocytes Absolute Auto 300 /uL (0-900); Monocytes Percent Auto 7.8 % (3-14); Neutrophils Absolute Auto 2500 /uL (1500-7000); Neutrophils Percent Auto 59.1 % (50-75); Platelet Count 263 X10^3/uL (150-400); Red Blood Cell Count 4.23 X10^6/uL (4.0-5.2); Red Cell Distribution Width 14.3 % (11.6-14.8); White Blood Cell Count 4.3 X10^3/uL (4.5-11.0)
[2020-12-09 11:31] LABS: Alanine Aminotransferase 20 IU/L (<35); Albumin 4.3 g/dL (3.5-5.0); Albumin Globulin Ratio 1.8 (1.0-2.8); Alkaline Phosphatase 48 U/L (38-126); Aspartate Aminotransferase 22 IU/L (14-36); BUN Creatinine Ratio 26.8 (6-22); Bilirubin Total 0.7 mg/dL (0.2-1.3); Blood Urea Nitrogen 15 mg/dL (7-17); C-Reactive Protein Quant < 0.5 mg/dL (<1.0); Calcium 9.5 mg/dL (8.4-10.2); Carbon Dioxide 29 mmol/L (22-32); Chloride 105 mmol/L (98-107); Estimated Glomerular Filt Rate > 60.0 mL/min (>60); Globulin 2.4 g/dL (1.7-4.1); Glucose 91 mg/dL (70-100); HEMOLYSIS < 15 (0-50); Potassium 4.2 mmol/L (3.4-5.1); Sodium 139 mmol/L (137-145); Total Protein 6.7 g/dL (6.3-8.2)
== END ==
PROVIDERS: PCP Family Medicine
DX: M46.20 Osteomyelitis of vertebra, site unspecified (principal)
CPT/HCPCS: 36415; 80053; 85025; 86140

== ENCOUNTER → 2020-12-23 09:55 | Outpatient (CLI) | payer OTHER, SELFPAY ==
[2020-10-16 12:36] VITALS: BMI 26.6
[2020-12-23 12:17] LABS: Add Manual Diff / Slide Review NO; Basophils Absolute Auto 0 /uL (0-100); Basophils Percent Auto 0.7 % (0-2); Eosinophils Absolute Auto 0 /uL (0-450); Hematocrit 37.5 % (36-46); Hemoglobin 12.9 g/dL (12.0-16.0); Lymphocytes Absolute Auto 1300 /uL (1100-4500); Lymphocytes Percent Auto 30.4 % (25-40); Mean Corpuscular HGB Conc 34.3 % (30-36); Mean Corpuscular Hemoglobin 31.2 PG (26-34); Monocytes Absolute Auto 400 /uL (0-900); Neutrophils Absolute Auto 2500 /uL (1500-7000); Neutrophils Percent Auto 59.9 % (50-75); Platelet Count 230 X10^3/uL (150-400); Red Blood Cell Count 4.12 X10^6/uL (4.0-5.2); Red Cell Distribution Width 14.4 % (11.6-14.8); White Blood Cell Count 4.1 X10^3/uL (4.5-11.0)
== END ==
PROVIDERS: PCP Family Medicine
DX: D72.819 Decreased white blood cell count, unspecified (principal)
CPT/HCPCS: 36415; 85025

== ENCOUNTER → 2021-01-08 10:20 | Outpatient (CLI) | payer OTHER, SELFPAY ==
[2020-10-16 12:36] VITALS: BMI 26.6
== END ==
PROVIDERS: PCP Family Medicine
DX: M46.20 Osteomyelitis of vertebra, site unspecified (principal); R78.81 Bacteremia; B95.5 Unspecified streptococcus as the cause of diseases classified elsewhere
CPT/HCPCS: 36415; 87040

== ENCOUNTER → 2021-01-29 14:15 | Outpatient (CLI) | payer OTHER, SELFPAY ==
[2020-10-16 12:36] VITALS: BMI 26.6
[2021-01-29] MEDS: COVID-19 VACC #2, MRNA(MOD) 100 MCG/0.5 ML VIAL IM (14:24)
== END ==
PROVIDERS: PCP Family Medicine; Visit Provider Internal Medicine
DX: Z23 Encounter for immunization (principal)
CPT/HCPCS: 0012A; 91301

== ENCOUNTER 2021-02-05 14:28 | Emergency (ER) | payer OTHER, SELFPAY ==
[2020-10-16 12:36] VITALS: BMI 26.6
[2021-02-05 14:35] VITALS: BP 129/90; PULSE 144; RESP 15; TEMP 36.7; O2SAT 99; BMI 27.6
[2021-02-05 14:55] VITALS: BP 135/93; PULSE 140; RESP 16; O2SAT 98
--- NOTE | 2021-02-05 15:08 | ED_ITS ---
HPI - Arrhythmia/Palpitations General Chief Complaint: Arrhythmia/Palpitations Stated Complaint: rapid heart rate Time Seen by Provider: 02/05/21 14:42 Source: patient Mode of arrival: Ambulatory Limitations: no limitations History of Present Illness HPI narrative: Patient is a 55-year-old female who has a recent infection of a diskitis finish antibiotics a couple of weeks ago. She does have a history of SVT and does take diltiazem. She says with her recent infection she has had increased palpitations and small episodes of SVT. She says today this started around 11 30 while at work she says she has tried everything to get it to go away including multiple Valsalva maneuvers. She says usually it does not last for this long. She feels palpitations in her heart beating quickly. MD complaint: rapid heart beat Duration: constant Arrhythmia history: SVT Related Data Previous Rx's Medication Instructions Recorded acetaminophen 650 mg PO Q4HR PRN #30 tab 10/21/20 ibuprofen 800 mg PO Q6HR PRN #30 tab 10/21/20 diltiazem HCl 120 mg capsule,24 120 mg PO DAILY #60 cap 01/08/21 hr,extended release lidocaine 5 % topical patch 2 patch TOPICAL DAILY #30 ea 01/08/21 Allergies Allergy/AdvReac Type Severity Reaction Status Date / Time chlorhexidine [CHLORHEXIDINE] Allergy Intermediate RASH Verified 01/08/21 13:43 oxycodone [OXYCODONE] Allergy Intermediate NAUSEA/DIZZ Verified 02/05/21 14:35 INESS Review of Systems Review of Systems Narrative: GENERAL: Denies chills, fatigue, malaise, fever, sweats, travel HEENT: Denies sinus pain, ear pain, sore throat, difficulty swallowing, neck pain RESPIRATORY: Denies dyspnea, cough, wheezing, hemoptysis, sputum. CARDIOVASCULAR: See HPI GASTROINTESTINAL: Denies nausea, vomiting, abdominal pain, diarrhea, constipation, melena. : Denies dysuria, frequency, incontinence, hematuria, urinary retention, flank pain. MUSCULOSKELETAL: Denies weakness, joint pain, or bony pain SKIN: No rash, no erythema, no pruritus NEUROLOGIC: Denies weakness, dizziness, headache, numbness, change in speech, confusion PSYCHIATRIC: No concerning psychosocial issues. 12 point review of systems is negative except for those stated above and HPI Patient History Medical History Acute viral syndrome Degenerative disc disease, cervical Insomnia Kidney stones Obstructive sleep apnea Palpitations (09/07/11) Snoring (09/07/11) Thoracic back pain Surgical History H/O melanoma excision History of bilateral salpingo-oophorectomy (BSO) History of left salpingo-oophorectomy (2008) History of spinal fusion Status post vaginal hysterectomy Family History Family/Other Dementia Father Loud snoring Hypertension Heart disease Alcohol abuse Mother Loud snoring Alcohol abuse Family/Other Depression Bipolar disorder Social History marital status: household members: spouse Smoking Status: Never smoker alcohol intake: current substance use type: does not use Smoking Status: Never smoker alcohol intake frequency: holidays/special occasions only Substance Use Type: does not use Exam Initial Vital Signs Initial Vital Signs: Vital Signs Temperature 98.1 F 02/05/21 14:35 Pulse Rate 144 H 02/05/21 14:35 Respiratory Rate 15 02/05/21 14:35 Blood Pressure 129/90 02/05/21 14:35 Pulse Oximetry 99 02/05/21 14:35 GENERAL: Alert well-appearing 55-year-old female HEENT: Head atraumatic,EOMI, pupils reactive, face symmetric, moist mucous membranes CARDIOVASCULAR: Tachycardic regular no murmur RESPIRATORY: Breath sounds equal bilaterally, no wheezes rales or rhonchi. ABDOMEN: Soft, nontender. Normoactive bowel sounds all 4 quadrants. No guarding or rebound. EXTREMITIES: Normal range of motion, no clubbing or edema. Neurovascularly intact NEUROLOGICAL: Alert and oriented x4.Normal gait and speech. SKIN: Warm, dry, no laceration, no petechiae, no rashes or lesions. Course Orders Ordered: Discontinued Medications Adenosine (Adenosine 6 Mg/2 Ml Vial) 6 mg IV NOW ONE Stop: 02/05/21 15:05 Last Admin: 02/05/21 15:15 Dose: 6 mg Documented by: MARICRUZ Adenosine (Adenosine 6 Mg/2 Ml Vial) 12 mg IV NOW ONE Stop: 02/05/21 15:27 Last Admin: 02/05/21 15:20 Dose: 12 mg Documented by: MARICRUZ Sodium Chloride (Normal Saline 0.9%) 1,000 mls @ 1,000 mls/hr IV CONT MATT Last Infusion: 02/05/21 15:40 Dose: 0 mls/hr Documented by: Admin: 02/05/21 15:25 Dose: 1,000 mls/hr Documented by: MARICRUZ Vital Signs Vital signs: Vital Signs - 8 hr 02/05/21 14:35 02/05/21 14:55 Temperature 98.1 F Pulse Rate 144 H 140 H Respiratory Rate 15 16 Blood Pressure 129/90 135/93 H Pulse Oximetry 99 98 MDM - Arrhythmia/Palpitations Lab Data Attestation: I reviewed the patient's lab results. Result diagrams: 02/05/21 15:20 02/05/21 15:20 Labs: Lab Results 02/05/21 02/05/21 02/05/21 Range/Units 15:20 15:20 15:20 WBC 3.8 L (4.5-11.0) X10^3/uL RBC 4.29 (4.0-5.2) X10^6/uL Hgb 13.4 (12.0-16.0) g/dL Hct 39.3 (36-46) % MCV 91.6 (80-100) fL MCH 31.2 (26-34) PG MCHC 34.1 (30-36) % RDW 14.3 (11.6-14.8) % Plt Count 220 (150-400) X10^3/uL Neut % (Auto) 48.8 L (50-75) % Lymph % (Auto) 40.8 H (25-40) % [place] % (Auto) 8.3 (3-14) % Eos % (Auto) 1.5 L (2-4) % Baso % (Auto) 0.6 (0-2) % Neut # (Auto) 1800 (2325-6370) /uL Lymph # (Auto) 1500 (2761-0227) /uL [place] # (Auto) 300 (0-900) /uL Eos # (Auto) 100 (0-450) /uL Baso # (Auto) 0 (0-100) /uL Sodium 141 (137-145) mmol/L Potassium 3.9 (3.4-5.1) mmol/L Chloride 104 (98-107) mmol/L Carbon Dioxide 28 (22-32) mmol/L BUN 16 (7-17) mg/dL Creatinine 0.60 (0.52-1.04) mg/dL Estimated GFR > 60.0 (>60) mL/min BUN/Creatinine Ratio 26.7 H (6-22) Glucose 92 (70-100) mg/dL Calcium 9.4 (8.4-10.2) mg/dL Magnesium 2.3 (1.6-2.3) mg/dL Total Bilirubin 0.5 (0.2-1.3) mg/dL AST 29 (14-36) IU/L ALT 17 (<35) IU/L Alkaline Phosphatase 50 (38-126) U/L Total Creatine Kinase 100 (30-135) U/L CK-MB (CK-2) TNP CK-MB (CK-2) Rel Index TNP Troponin I < 0.012 (0.01-0.034) ng/mL Total Protein 6.9 (6.3-8.2) g/dL Albumin 4.3 (3.5-5.0) g/dL Globulin 2.6 (1.7-4.1) g/dL Albumin/Globulin Ratio 1.7 (1.0-2.8) TSH (0.47-4.68) uIU/mL /03/23 Range/Units 15:20 WBC (4.5-11.0) X10^3/uL RBC (4.0-5.2) X10^6/uL Hgb (12.0-16.0) g/dL Hct (36-46) % MCV (80-100) fL MCH (26-34) PG MCHC (30-36) % RDW (11.6-14.8) % Plt Count (150-400) X10^3/uL Neut % (Auto) (50-75) % Lymph % (Auto) (25-40) % [place] % (Auto) (3-14) % Eos % (Auto) (2-4) % Baso % (Auto) (0-2) % Neut # (Auto) (0908-8450) /uL Lymph # (Auto) (1969-6628) /uL [place] # (Auto) (0-900) /uL Eos # (Auto) (0-450) /uL Baso # (Auto) (0-100) /uL Sodium (137-145) mmol/L Potassium (3.4-5.1) mmol/L Chloride (98-107) mmol/L Carbon Dioxide (22-32) mmol/L BUN (7-17) mg/dL Creatinine (0.52-1.04) mg/dL Estimated GFR (>60) mL/min BUN/Creatinine Ratio (6-22) Glucose (70-100) mg/dL Calcium (8.4-10.2) mg/dL Magnesium (1.6-2.3) mg/dL Total Bilirubin (0.2-1.3) mg/dL AST (14-36) IU/L ALT (<35) IU/L Alkaline Phosphatase (38-126) U/L Total Creatine Kinase (30-135) U/L CK-MB (CK-2) CK-MB (CK-2) Rel Index Troponin I (0.01-0.034) ng/mL Total Protein (6.3-8.2) g/dL Albumin (3.5-5.0) g/dL Globulin (1.7-4.1) g/dL Albumin/Globulin Ratio (1.0-2.8) TSH 1.63 (0.47-4.68) uIU/mL ECG Data Attestation: I personally reviewed and interpreted this ECG as follows: Prior ECG tracings: not available for review Interpretation: SVT rate 142 no prior EKG Normal sinus rhythm rate 70 p.r. interval 168 QRS 90 QTC 417 T-wave inversion noted in lead 3, v3, v2 no ST changes, there is an outside EKG from 11/13/2020 with T-wave inversions in lead 3 and V3 and V2 similar to this EKG MDM Narrative Medical decision making narrative: Times in the she is on diltiazem for it. However she has never needed adenosine. She did not respond to 6 mg of adenosine but responded well to 12 mg of adenosine. Electrolytes and other lab work are within normal limits. Patient has remained in sinus rhythm since she converted and is overall feeling better. At this time I recommend she follow-up with her PCP and if she continues to have issues she may need Cardiology. No change in medication at this time. Discharge Plan Departure Patient Disposition: Home Clinical Impression: Supraventricular tachycardia Instructions: Paroxysmal Supraventricular Tachycardia Activity Restrictions/Additional Instructions: *You have been diagnosed with SVT *What to do: At this time recommend follow-up with primary care provider continue taking diltiazem as directed *Continue to take medications as directed *Follow up with your primary care provider in 2-3 days *Return to ER if you should have chest pain palpitations or any new, worsening or concerning symptoms Prescriptions: No Action diltiazem HCl 120 mg capsule,extended release 24 hr 120 mg PO DAILY Qty: 60 RF: 0 lidocaine 5 % adhesive patch,medicated 2 patch topical DAILY Qty: 30 RF: 1 acetaminophen 325 mg Tablet 650 mg PO Q4HR PRN (Reason: Pain, Mild (1-3)) Qty: 30 RF: 0 ibuprofen 400 mg Tablet 800 mg PO Q6HR PRN (Reason: Fever/Mild Pain (1-3)) Qty: 30 RF: 0 Referrals: Saman Barry MD [Primary Care Provider] -
[2021-02-05] MEDS: ADENOSINE 6 MG/2 ML VIAL IV (15:15)
[2021-02-05] MEDS: ADENOSINE 6 MG/2 ML VIAL 12 MG IV (15:20)
[2021-02-05 15:21] VITALS: BP 137/83; PULSE 93; RESP 22; O2SAT 100
[2021-02-05] MEDS: SODIUM CHLORIDE 0.9% 1,000 ML 1000 ML IV (15:25)
[2021-02-05 15:28] LABS: Add Manual Diff / Slide Review NO; Basophils Absolute Auto 0 /uL (0-100); Basophils Percent Auto 0.6 % (0-2); Eosinophils Absolute Auto 100 /uL (0-450); Eosinophils Percent Auto 1.5 % (2-4); Hematocrit 39.3 % (36-46); Hemoglobin 13.4 g/dL (12.0-16.0); Lymphocytes Absolute Auto 1500 /uL (1100-4500); Lymphocytes Percent Auto 40.8 % (25-40); Mean Corpuscular HGB Conc 34.1 % (30-36); Mean Corpuscular Hemoglobin 31.2 PG (26-34); Mean Corpuscular Volume 91.6 fL (80-100); Monocytes Absolute Auto 300 /uL (0-900); Monocytes Percent Auto 8.3 % (3-14); Neutrophils Absolute Auto 1800 /uL (1500-7000); Neutrophils Percent Auto 48.8 % (50-75); Platelet Count 220 X10^3/uL (150-400); Red Blood Cell Count 4.29 X10^6/uL (4.0-5.2); Red Cell Distribution Width 14.3 % (11.6-14.8); White Blood Cell Count 3.8 X10^3/uL (4.5-11.0)
[2021-02-05 15:30] VITALS: BP 136/86; PULSE 79; RESP 17; O2SAT 97
[2021-02-05 15:40] VITALS: BP 124/74; PULSE 78; RESP 18; O2SAT 97
[2021-02-05 15:57] LABS: Alanine Aminotransferase 17 IU/L (<35); Albumin 4.3 g/dL (3.5-5.0); Albumin Globulin Ratio 1.7 (1.0-2.8); Alkaline Phosphatase 50 U/L (38-126); Aspartate Aminotransferase 29 IU/L (14-36); BUN Creatinine Ratio 26.7 (6-22); Bilirubin Total 0.5 mg/dL (0.2-1.3); Blood Urea Nitrogen 16 mg/dL (7-17); Calcium 9.4 mg/dL (8.4-10.2); Carbon Dioxide 28 mmol/L (22-32); Chloride 104 mmol/L (98-107); Creatine Kinase 100 U/L (30-135); Estimated Glomerular Filt Rate > 60.0 mL/min (>60); Globulin 2.6 g/dL (1.7-4.1); Glucose 92 mg/dL (70-100); HEMOLYSIS 17 (0-50); Magnesium 2.3 mg/dL (1.6-2.3); Potassium 3.9 mmol/L (3.4-5.1); Sodium 141 mmol/L (137-145); Total Protein 6.9 g/dL (6.3-8.2)
[2021-02-05 16:00] VITALS: BP 115/69; PULSE 76; RESP 16; O2SAT 95
[2021-02-05 16:08] LABS: Troponin I < 0.012 ng/mL (0.01-0.034)
[2021-02-05 16:38] LABS: Thyroid Stimulating Hormone 1.63 uIU/mL (0.47-4.68)
== END 2021-02-05 16:19 | disposition home or self-care (01) ==
PROVIDERS: Emergency Provider Emergency Medicine; PCP Family Medicine
DX: I47.1 Supraventricular tachycardia (principal)
CPT/HCPCS: 36415; 80053; 82550; 83735; 84443; 84484; 85025; 93005; 96374; 99284; 99285; J0153

== ENCOUNTER 2021-02-08 08:25 | Emergency (ER) | payer OTHER, SELFPAY ==
[2020-10-16 12:36] VITALS: BMI 26.6
[2021-02-08 08:39] VITALS: BP 159/97; PULSE 84; RESP 16; TEMP 37; O2SAT 99; BMI 28.0
--- NOTE | 2021-02-08 08:42 | ED_ITS ---
HPI - Back Pain/Injury General Chief Complaint: Back Pain/Injury Stated Complaint: LOWER BACK INFECTION Time Seen by Provider: 02/08/21 08:27 Source: patient Mode of arrival: Ambulatory Limitations: no limitations History of Present Illness HPI Narrative: Patient is a 55-year-old female who has a recent complicated history of diskitis bacteremia in October of 2020 she was on 6 weeks of antibiotics and oral antibiotics after that. She has recently been back to work for the last 2 weeks she an episode of SVT few days ago and was in the ED given adenosine and cardioverted. She states that she has had increasing back pain initially thought it was due to being more active and back at work. She says she has more pain at the end of the day however by morning her pain has improved. However over the last few days she is having increasing intense pain at L3 where her previous infection was. She has no rigors or fever. She has not needed her walker for number of weeks however the last 2 days she has definitely needed id saw something she does not like. She has no chest pain shortness of breath no weakness numbness or tingling no changes in bowel or bladder habits. This morning she took 15 mg of morphine, 1000 Tylenol and 800 of ibuprofen Complaint: back pain Onset (ago): day(s) Duration: constant Similar Symptoms Previously: Yes Location: lumbar spine Severity: severe Quality: sharp Radiation: none Severity scale (1-10): 8 Exacerbating factors: movement Related Data Previous Rx's Medication Instructions Recorded acetaminophen 650 mg PO Q4HR PRN #30 tab 10/21/20 ibuprofen 800 mg PO Q6HR PRN #30 tab 10/21/20 diltiazem HCl 120 mg capsule,24 120 mg PO DAILY #60 cap 01/08/21 hr,extended release lidocaine 5 % topical patch 2 patch TOPICAL DAILY #30 ea 01/08/21 Allergies Allergy/AdvReac Type Severity Reaction Status Date / Time chlorhexidine [CHLORHEXIDINE] Allergy Intermediate RASH Verified 02/08/21 08:49 oxycodone [OXYCODONE] Allergy Intermediate NAUSEA/DIZZ Verified 02/08/21 08:49 INESS Review of Systems Review of Systems ROS Unobtainable: All systems reviewed & are unremarkable except as noted in HPI and below Constitutional Constitutional: Denies chills, Denies fever(s), Denies lethargy and Denies weakness ENT Ears, Nose, Mouth, and Throat: Denies change in voice, Denies neck pain and Denies sore throat Cardiovascular Cardiovascular: Denies chest pain, Denies irregular heart rhythm, Denies lightheadedness, Denies palpitations, Denies dyspnea, Denies dyspnea on exertion and Denies orthopnea Respiratory Respiratory: Denies cough, Denies dyspnea, Denies dyspnea on exertion and Denies wheezing Gastrointestinal Gastrointestinal: Denies abdominal pain, Denies change in bowel habits, Denies diarrhea, Denies nausea and Denies vomiting Musculoskeletal Musculoskeletal: Reports system reviewed and no additional complaints, except as documented, Reports as per HPI, Reports back pain and Denies neck pain Integumentary/Breasts Skin/Breast: Denies pruritus, Denies erythema, Denies rash and Denies wounds Neurologic Neurologic: Denies weakness Endocrine Endocrine: Denies palpitations Allergic/Immunologic Allergic/Immunologic: Denies wheezing Patient History Medical History Acute viral syndrome Degenerative disc disease, cervical Insomnia Kidney stones Obstructive sleep apnea Palpitations (09/07/11) Snoring (09/07/11) Thoracic back pain Surgical History H/O melanoma excision History of bilateral salpingo-oophorectomy (BSO) History of left salpingo-oophorectomy (2008) History of spinal fusion Status post vaginal hysterectomy Family History Family/Other Dementia Father Loud snoring Hypertension Heart disease Alcohol abuse Mother Loud snoring Alcohol abuse Family/Other Depression Bipolar disorder Social History marital status: household members: spouse Smoking Status: Never smoker alcohol intake: current substance use type: does not use Smoking Status: Never smoker alcohol intake frequency: holidays/special occasions only Substance Use Type: does not use Exam Initial Vital Signs Initial Vital Signs: Vital Signs Temperature 98.6 F 02/08/21 08:39 Pulse Rate 84 02/08/21 08:39 Respiratory Rate 16 02/08/21 08:39 Blood Pressure 159/97 H 02/08/21 08:39 Pulse Oximetry 99 02/08/21 08:39 GENERAL: Alert 55-year-old female sitting on edge of bed appears uncomfortable and in no acute distress. HEENT: Head atraumatic,EOMI, pupils reactive, face symmetric, moist mucous membranes CARDIOVASCULAR: Regular rate and rhythm without murmurs, rubs or gallops. RESPIRATORY: Breath sounds equal bilaterally, no wheezes rales or rhonchi. ABDOMEN: Soft, nontender. Normoactive bowel sounds all 4 quadrants. No guarding or rebound. EXTREMITIES: Normal range of motion, no clubbing or edema. Neurovascularly intact BACK: Tender at L3 slightly to the right right in the paraspinal muscle area NEUROLOGICAL: Alert and oriented x4.Normal gait and speech. Cranial nerves II through XII grossly intact. Sensation in lower extremities intact SKIN: Warm, dry, no laceration, no petechiae, no rashes or lesions. Course Orders Ordered: ED Orders 02/08/21 08:43 MR lumbar spine wo/w con Stat EKG-12 Lead Stat 02/08/21 08:54 C-Reactive Protein Quant Stat Complete Blood Count AUTO DIFF Stat Comprehensive Metabolic Panel Stat Erythrocyte Sedimentation Rate Stat Lactate (Lactic Acid) Stat Procalcitonin Stat 02/08/21 09:20 Blood Culture Stat Discontinued Medications Sodium Chloride (Normal Saline 0.9%) 1,000 mls @ 150 mls/hr IV CONT MATT Last Admin: 02/08/21 10:11 Dose: 150 mls/hr Documented by: LEYLA Morphine Sulfate (Morphine 4 Mg/Ml Inj) 4 mg IV NOW ONE Stop: 02/08/21 08:45 Last Admin: 02/08/21 09:20 Dose: 4 mg Documented by: LEYLA Vital Signs Vital signs: Vital Signs - 8 hr 02/08/21 08:39 02/08/21 11:37 Temperature 98.6 F 98.1 F Pulse Rate 84 65 Respiratory Rate 16 Blood Pressure 159/97 H 134/74 Pulse Oximetry 99 99 MDM - Back Pain/Injury Lab Data Attestation: I reviewed the patient's lab results. Result diagrams: 02/08/21 08:54 02/08/21 08:54 Labs: Lab Results 02/08/21 02/08/21 02/08/21 Range/Units 08:54 08:54 08:54 WBC 4.0 L (4.5-11.0) X10^3/uL RBC 4.16 (4.0-5.2) X10^6/uL Hgb 13.0 (12.0-16.0) g/dL Hct 38.2 (36-46) % MCV 91.9 (80-100) fL MCH 31.2 (26-34) PG MCHC 34.0 (30-36) % RDW 13.9 (11.6-14.8) % Plt Count 228 (150-400) X10^3/uL Neut % (Auto) 58.1 (50-75) % Lymph % (Auto) 31.2 (25-40) % [place] % (Auto) 8.8 (3-14) % Eos % (Auto) 1.3 L (2-4) % Baso % (Auto) 0.6 (0-2) % Neut # (Auto) 2300 (7212-3545) /uL Lymph # (Auto) 1200 (7371-4698) /uL [place] # (Auto) 300 (0-900) /uL Eos # (Auto) 100 (0-450) /uL Baso # (Auto) 0 (0-100) /uL ESR (0-20) MM/HR Sodium 140 (137-145) mmol/L Potassium 4.3 (3.4-5.1) mmol/L Chloride 106 (98-107) mmol/L Carbon Dioxide 28 (22-32) mmol/L BUN 14 (7-17) mg/dL Creatinine 0.52 (0.52-1.04) mg/dL Estimated GFR > 60.0 (>60) mL/min BUN/Creatinine Ratio 26.9 H (6-22) Glucose 94 (70-100) mg/dL Lactate 1.0 (0.7-2.1) mmol/L Calcium 9.4 (8.4-10.2) mg/dL Total Bilirubin 0.5 (0.2-1.3) mg/dL AST 27 (14-36) IU/L ALT 17 (<35) IU/L Alkaline Phosphatase 50 (38-126) U/L C-Reactive Protein (<1.0) mg/dL Total Protein 6.8 (6.3-8.2) g/dL Albumin 4.4 (3.5-5.0) g/dL Globulin 2.4 (1.7-4.1) g/dL Albumin/Globulin Ratio 1.8 (1.0-2.8) Procalcitonin 0.04 (<0.5) ng/mL 02/08/21 02/08/21 Range/Units 08:54 08:54 WBC (4.5-11.0) X10^3/uL RBC (4.0-5.2) X10^6/uL Hgb (12.0-16.0) g/dL Hct (36-46) % MCV (80-100) fL MCH (26-34) PG MCHC (30-36) % RDW (11.6-14.8) % Plt Count (150-400) X10^3/uL Neut % (Auto) (50-75) % Lymph % (Auto) (25-40) % [place] % (Auto) (3-14) % Eos % (Auto) (2-4) % Baso % (Auto) (0-2) % Neut # (Auto) (2289-1342) /uL Lymph # (Auto) (9822-0945) /uL [place] # (Auto) (0-900) /uL Eos # (Auto) (0-450) /uL Baso # (Auto) (0-100) /uL ESR 7 (0-20) MM/HR Sodium (137-145) mmol/L Potassium (3.4-5.1) mmol/L Chloride (98-107) mmol/L Carbon Dioxide (22-32) mmol/L BUN (7-17) mg/dL Creatinine (0.52-1.04) mg/dL Estimated GFR (>60) mL/min BUN/Creatinine Ratio (6-22) Glucose (70-100) mg/dL Lactate (0.7-2.1) mmol/L Calcium (8.4-10.2) mg/dL Total Bilirubin (0.2-1.3) mg/dL AST (14-36) IU/L ALT (<35) IU/L Alkaline Phosphatase (38-126) U/L C-Reactive Protein < 0.5 (<1.0) mg/dL Total Protein (6.3-8.2) g/dL Albumin (3.5-5.0) g/dL Globulin (1.7-4.1) g/dL Albumin/Globulin Ratio (1.0-2.8) Procalcitonin (<0.5) ng/mL Imaging Data MR lumbar: Radiologist's Impression: PROCEDURE: MR LUMBAR SPINE WO/W CON INDICATIONS: prior diskitis at L3 intense pain TECHNIQUE: Noncontrast sagittal T1 spin echo and T2 fast spin echo, sagittal STIR, axial T1 and T2 fast spin echo through the lumbar spine. In cases with scoliosis, additional coronal T2 fast spin echo may be performed. After the administration of contrast, sagittal and axial T1 spin echo with fat saturation through the lumbar spine. COMPARISON: [facility], , MR LUMBAR SPINE WITH/WITHOUT CONTRAST, 12/09/2020, 13:08. [facility], MR, MR LUMBAR SPINE WITH/WITHOUT CONTRAST, 11/13/2020, 16:31. [facility], MR, MR LUMBAR SPINE WO/W CON, 11/07/2020, 15:12. FINDINGS: Image quality: This examination is limited by involuntary motion artifact. Alignment and curvature: There is moderate levoconvex lumbar scoliosis. Minimal retrolisthesis can be seen at T11-T12. There is minimal retrolisthesis at L2-L3 and mild grade 1 anterolisthesis at L3-L4. Mild retrolisthesis is seen at L5-S1. Marrow: Marrow is of normal overall signal. No acute vertebral body compression fractures. No suspicious marrow enhancement. Spinal cord: Conus medullaris terminates at the L1 level. Visualized spinal cord demonstrates normal signal, without suspicious enhancement. Paraspinous soft tissues: No paravertebral masses or abnormal enhancement. A gallstone is incidentally noted, as on series 6, image 7. T11-T12: Moderate to severe loss of disc height and disc signal can be seen. There is a remote Schmorl's node at the inferior endplate of T11. Moderate generalized disc bulge is seen. No significant neural foraminal or central canal narrowing can be seen. When comparison is made with the prior examination, these findings are similar. T12-L1: Normal appearance. L1-L2: Normal appearance. L2-L3: Moderate to severe loss of disc height and disc signal can be seen. Moderate generalized disc bulge is seen. Moderate facet joint hypertrophy is seen. No s ignificant neural foraminal narrowing can be seen. Mild to moderate central canal narrowing is seen. On the left, there is a nonenhancing perineural cyst, as on series 5, image 14. Stable from the prior study. L3-L4: At least moderate loss of disc height is seen. Mildly increased STIR signal can be seen along this disc level. There is enhancement seen of the disc level itself. Reactive marrow endplate changes are seen which are hypointense on T1-weighted imaging and hyperintense on T2 weighted imaging, which is most consistent with edema (Modic type I changes). Mild endplate enhancement can be seen. Moderate disc bulge is seen, which is eccentric to the right. At least moderate facet hypertrophy can be seen at this level. There is at least moderate right-sided neural foraminal narrowing seen, with a mild degree of compression upon the exiting right L3 nerve root. No left-sided neural foraminal narrowing is seen. At least moderate central canal narrowing is seen. These imaging findings are similar to the 12/09/2020 examination. L4-L5: Postoperative changes are seen at this level, with removal of portions of the posterior elements. There is a degree vertebral body fusion seen. There is mild right-sided and no left-sided neural foraminal narrowing seen. The central canal is widely patent. Stable from the prior study. L5-S1: Moderate loss of disc height and disc signal can be seen on the left. Mild to moderate disc bulge is seen. There has been removal of portions of the posterior elements. Moderate to prominent facet hypertrophy is seen. There is at least moderate bilateral neural foraminal narrowing seen, left worse than right. The central canal is widely patent. Stable from the prior study. IMPRESSION: Continued findings of discitis and osteomyelitis at the L3-L4 level, without significant change compared to the 12/09/2020 MRI examination. Stable multilevel degenerative change. Incidental note is made of: Gallstone Dictated by: Lewis Driscoll M.D. on 02/08/2021 at 9:11 ECG Data Attestation: I personally reviewed and interpreted this ECG as follows: Prior ECG tracings: available for review Interpretation: Rhythm rate 61 p.r. interval 146 QRS 88 QTC see [address] changes similar to prior EKG MDM Narrative Medical decision making narrative: Patient's pain initially concerning for possible recurrent abscess. She has no neurologic deficits but is obviously weaker and in more pain and needing her walker rest previously she was not. She has no leukocytosis, inflammatory markers are negative along with procalcitonin. Her pain is significantly improved after morphine. Her MRI does not show any worsening or new disease but rather stable since December. At this time I think she has overdone it with work. I recommend pain control and rest. I discussed all findings with the patient and , Education has been performed regarding treatment plan, diagnosis, warning signs and symptoms and all concerns have been addressed. Verbally agree with and understood all of the above. Discharge Plan Departure Patient Disposition: Home Clinical Impression: Acute exacerbation of chronic low back pain Instructions: DI for Low Back Pain Activity Restrictions/Additional Instructions: *You have been diagnosed with acute on chronic back pain *What to do: At this time there does not appear that you have a new infection. It may be from work. Use walker as needed. Please continue to monitor *Continue to take medications as directed *Follow up with your primary care provider in 2-3 days *Return to ER if you should have increasing pain, fever, weakness, changes in bowel or bladder habits or any new, worsening or concerning symptoms Prescriptions: No Action diltiazem HCl 120 mg capsule,extended release 24 hr 120 mg PO DAILY Qty: 60 RF: 0 lidocaine 5 % adhesive patch,medicated 2 patch topical DAILY Qty: 30 RF: 1 acetaminophen 325 mg Tablet 650 mg PO Q4HR PRN (Reason: Pain, Mild (1-3)) Qty: 30 RF: 0 ibuprofen 400 mg Tablet 800 mg PO Q6HR PRN (Reason: Fever/Mild Pain (1-3)) Qty: 30 RF: 0 Referrals: Saman Barry MD [Primary Care Provider] -
[2021-02-08 09:10] LABS: Add Manual Diff / Slide Review NO; Basophils Absolute Auto 0 /uL (0-100); Basophils Percent Auto 0.6 % (0-2); Eosinophils Absolute Auto 100 /uL (0-450); Eosinophils Percent Auto 1.3 % (2-4); Hematocrit 38.2 % (36-46); Lymphocytes Absolute Auto 1200 /uL (1100-4500); Lymphocytes Percent Auto 31.2 % (25-40); Mean Corpuscular Hemoglobin 31.2 PG (26-34); Mean Corpuscular Volume 91.9 fL (80-100); Monocytes Absolute Auto 300 /uL (0-900); Monocytes Percent Auto 8.8 % (3-14); Neutrophils Absolute Auto 2300 /uL (1500-7000); Neutrophils Percent Auto 58.1 % (50-75); Platelet Count 228 X10^3/uL (150-400); Red Blood Cell Count 4.16 X10^6/uL (4.0-5.2); Red Cell Distribution Width 13.9 % (11.6-14.8)
[2021-02-08] MEDS: MORPHINE 4 MG/ML INJ IV (09:20)
[2021-02-08 09:21] LABS: Alanine Aminotransferase 17 IU/L (<35); Albumin 4.4 g/dL (3.5-5.0); Albumin Globulin Ratio 1.8 (1.0-2.8); Alkaline Phosphatase 50 U/L (38-126); Aspartate Aminotransferase 27 IU/L (14-36); BUN Creatinine Ratio 26.9 (6-22); Bilirubin Total 0.5 mg/dL (0.2-1.3); Blood Urea Nitrogen 14 mg/dL (7-17); Calcium 9.4 mg/dL (8.4-10.2); Carbon Dioxide 28 mmol/L (22-32); Chloride 106 mmol/L (98-107); Estimated Glomerular Filt Rate > 60.0 mL/min (>60); Globulin 2.4 g/dL (1.7-4.1); Glucose 94 mg/dL (70-100); HEMOLYSIS < 15 (0-50); Potassium 4.3 mmol/L (3.4-5.1); Sodium 140 mmol/L (137-145); Total Protein 6.8 g/dL (6.3-8.2)
[2021-02-08 09:37] LABS: Procalcitonin 0.04 ng/mL (<0.5)
[2021-02-08] MEDS: SODIUM CHLORIDE 0.9% 1,000 ML 150 ML IV (10:11)
[2021-02-08 11:37] VITALS: BP 134/74; PULSE 65; TEMP 36.7; O2SAT 99
[2021-02-08 11:49] LABS: C-Reactive Protein Quant < 0.5 mg/dL (<1.0)
[2021-02-08 11:54] LABS: Erythrocyte Sedimentation Rate 7 MM/HR (0-20)
--- NOTE | 2021-02-17 15:35 | PC.NURSE ---
Late Entry. Per RN IV fluids discontinued and IV line DC's when patient was discharged.
== END 2021-02-08 11:42 | disposition home or self-care (01) ==
PROVIDERS: Emergency Provider Emergency Medicine; PCP Family Medicine
DX: M54.5 Low back pain (principal)
CPT/HCPCS: 36415; 72158; 80053; 83605; 84145; 85025; 85651; 86140; 87040; 93005; 93010; 96361; 96374; 99284; A9579; J2270

== ENCOUNTER → 2021-02-13 08:01 | Outpatient (CLI) | payer OTHER, SELFPAY ==
[2020-10-16 12:36] VITALS: BMI 26.6
[2021-02-13 09:18] LABS: Add Manual Diff / Slide Review NO; Basophils Absolute Auto 0 /uL (0-100); Basophils Percent Auto 0.4 % (0-2); Eosinophils Absolute Auto 100 /uL (0-450); Eosinophils Percent Auto 1.5 % (2-4); Hematocrit 40.1 % (36-46); Hemoglobin 13.4 g/dL (12.0-16.0); Lymphocytes Absolute Auto 1400 /uL (1100-4500); Lymphocytes Percent Auto 35.2 % (25-40); Mean Corpuscular HGB Conc 33.4 % (30-36); Mean Corpuscular Hemoglobin 30.9 PG (26-34); Mean Corpuscular Volume 92.6 fL (80-100); Monocytes Absolute Auto 300 /uL (0-900); Monocytes Percent Auto 8.8 % (3-14); Neutrophils Absolute Auto 2100 /uL (1500-7000); Neutrophils Percent Auto 54.1 % (50-75); Platelet Count 235 X10^3/uL (150-400); Red Blood Cell Count 4.33 X10^6/uL (4.0-5.2); Red Cell Distribution Width 13.7 % (11.6-14.8); White Blood Cell Count 3.9 X10^3/uL (4.5-11.0)
[2021-02-13 09:41] LABS: Erythrocyte Sedimentation Rate 7 MM/HR (0-20)
[2021-02-13 10:03] LABS: C-Reactive Protein Quant < 0.5 mg/dL (<1.0)
== END ==
PROVIDERS: PCP Family Medicine; Referring Provider Family Medicine; Visit Provider Family Medicine
DX: M46.46 Discitis, unspecified, lumbar region (principal); R78.81 Bacteremia
CPT/HCPCS: 36415; 85025; 85651; 86140

== ENCOUNTER 2021-03-13 19:28 | Emergency (ER) | payer OTHER, SELFPAY ==
[2020-10-16 12:36] VITALS: BMI 26.6
[2021-03-13 19:35] VITALS: BP 148/80; PULSE 93; RESP 15; TEMP 36.8; O2SAT 97; BMI 28.0
--- NOTE | 2021-03-13 19:44 | PC.NURSE ---
Pt while checking into emergency department state heart rate has improved. EKG obtained and patient in a sinus rhythm. Pt decided to leave r/t not being in SVT at this time. Informed if Her heart rate increases again to come back in. Pt states understanding.
== END 2021-03-13 19:50 | disposition left against medical advice (07) ==
PROVIDERS: Emergency Provider Emergency Medicine; PCP Family Medicine
DX: R00.2 Palpitations (principal)
CPT/HCPCS: 93005; 99282

== ENCOUNTER → 2021-03-26 14:37 | Outpatient (CLI) | payer OTHER, SELFPAY ==
[2020-10-16 12:36] VITALS: BMI 26.6
--- NOTE | 2021-03-26 14:38 | DI.ECHO.S_ITS ---
[facility] +---------+ : : [address] : : : : [address] : : : : [place], : : : : [place] [id number] : : : : Phone: [phone] Former[phone] Echocardiogram Report + + :Name: SARABJIT ENGLE Study Date: 03/26/2021 Height: 66 in : :[facility] ReadingLocation: Weight: 174 lb: : Gender: Female BSA: 1.9 m2 : :: 1965 Age: 56 yrs : :Reason For Study: Arrhythmia : :Ordering Physician: TREY, : :FREYA Performed By: Rodrigo Medrano : :Referring: FREYA YANG : + + Interpretation Summary The ejection fraction is estimated to be 55-60%. There is trace mitral regurgitation. There is mild tricuspid regurgitation. The right ventricular systolic pressure is estimated to be at least 34 mmHg based on an estimated right atrial pressure of 8 mm Hg. Procedure: A two-dimensional transthoracic echocardiogram with color flow and Doppler was performed. The study quality was technically adequate. Comparison is made with the echocardiogram of 11/14/2020. The patient was in sinus rhythm with heart rates between 58-68 bpm during the exam. Left Ventricle: The left ventricle is normal in size and wall thickness. Left ventricular systolic function is normal. The ejection fraction is estimated to be 55-60%. There are no focal wall motion abnormalities. Diastolic parameters suggest probable normal left ventricular diastolic function and normal filling pressures. Right Ventricle: The right ventricle is normal in size and function. Atria: The left atrium is mildly dilated. Borderline right atrial enlargement. There is no Doppler evidence for an interatrial shunt. Mitral Valve: The mitral valve is normal in structure and function. There is trace mitral regurgitation. Aortic Valve: The aortic valve is normal in structure and function. No aortic regurgitation is present. Tricuspid Valve: The tricuspid valve is normal in structure and function. There is mild tricuspid regurgitation. The right ventricular systolic pressure is estimated to be at least 34 mmHg based on an estimated right atrial pressure of 8 mm Hg. Pulmonic Valve: The pulmonic valve is normal in structure and function. There is mild pulmonic regurgitation. Great Vessels: The aortic root is normal size. The dimensions of the ascending aorta are normal. The IVC is dilated (diameter is greater than 2.1 cm) yet it collapses greater than 50% with a sniff. This suggests a right atrial pressure of 8 mm Hg. Pericardium/ Pleura There is no pericardial effusion. There is no pleural effusion. MMode/2D Measurements & Calculations LVIDd: 5.5 cm LVOT diam: 2.2 cm LVIDs: 3.8 cm Ao root diam: 3.3 cm IVSd: 0.90 cm asc Aorta Diam: 3.2 cm LVPWd: 0.87 cm LV parson. diameter/BSA (cm/m^2): 2.9 LV sys. diameter/BSA (cm/m^2): 2.0 FS: 30.6 % LA A2 area: 19.5 cm2 RA long axis: 5.1 cm LA A4 area: 21.4 cm2 RA area: 18.4 cm2 LA length (vol): 5.4 cm RA vol: 56.6 ml LA vol: 65.5 ml RA : 30.0 ml/m2 LA vol index: 34.7 ml/m2 RVD1 (basal): 3.6 cm IVC diam: 2.2 cm TAPSE: 3.6 cm Doppler Measurements & Calculations Ao V2 max: 155.1 cm/sec LVOT Max Guerrero: 103.3 cm/sec Ao V2 mean: 105.6 cm/sec LV V1 max P.3 mmHg Ao V2 VTI: 32.1 cm LV V1 VTI: 23.7 cm Ao max P.6 mmHg Ao mean P.1 mmHg SAÚL(I,D): 2.8 cm2 MV E max guerrero: 78.3 cm/sec SAÚL(V,D): 2.6 cm2 MV A max guerrero: 76.1 cm/sec SAÚL indexed to BSA (cm^2/m^2): 1.5 MV E/A: 1.0 sev ratio: 0.74 Med Peak E' Guerrero: 10.2 cm/sec E/E' med: 7.7 Lat Peak E' Guerrero: 13.5 cm/sec E/E' lat: 5.8 E/e' average: 6.7 MV dec time: 0.19 sec TR max guerrero: 254.5 cm/sec TR max P.9 mmHg PA V2 max: 92.8 cm/sec SV(LVOT): 91.1 ml PA V2 mean: 68.9 cm/sec PA mean P.1 mmHg PA pr(Accel): 25.0 mmHg Reading Physician:04:20 PM
== END ==
PROVIDERS: PCP Family Medicine; Referring Provider Family Medicine; Visit Provider Family Medicine
DX: I47.1 Supraventricular tachycardia (principal); Z82.49 Family history of ischemic heart disease and other diseases of the circulatory system; I07.1 Rheumatic tricuspid insufficiency
CPT/HCPCS: 93306

== ENCOUNTER → 2021-04-08 14:35 | Outpatient (CLI) | payer OTHER, SELFPAY ==
[2020-10-16 12:36] VITALS: BMI 26.6
--- NOTE | 2021-04-08 | DI.MG.S_ITS ---
BILATERAL DIGITAL SCREENING MAMMOGRAM 3D/2D WITH CAD: 04/08/2021 CLINICAL: Routine screening. Baseline exam. Comparison is made to exams dated: 03/03/2020 mammogram, 01/10/2019 mammogram, and 01/05/2018 mammogram - [facility]. There are scattered fibroglandular elements in both breasts. Current study was also evaluated with a Computer Aided Detection (CAD) system. There are benign post operative findings in the left breast. No significant masses, calcifications, or other findings are seen in either breast. There has been no significant interval change. IMPRESSION: BENIGN There is no mammographic evidence of malignancy. A 1 year screening mammogram is recommended. This exam was interpreted at Station ID: [id number]. NOTE: For mammograms, a report in lay terms will be sent to the patient. Approximately 15% of breast malignancies will not be visualized mammographically. In the management of a palpable breast mass, a negative mammogram must not discourage biopsy of a clinically suspicious lesion. Electronically Signed By: Dayna rice/néstor:04/08/2021 17:45:05 letter sent: Normal Exam ACR BI-RADS Category 2: Benign Finding(s) 3342F
== END ==
PROVIDERS: PCP Family Medicine; Referring Provider Family Medicine; Visit Provider Family Medicine
DX: Z12.31 Encounter for screening mammogram for malignant neoplasm of breast (principal)
CPT/HCPCS: 77063; 77067

== ENCOUNTER → 2021-07-30 12:08 | Outpatient (CLI) | payer OTHER, SELFPAY ==
[2020-10-16 12:36] VITALS: BMI 26.6
== END ==
PROVIDERS: PCP Family Medicine; Referring Provider Internal Medicine; Visit Provider Internal Medicine
DX: Z23 Encounter for immunization (principal)
CPT/HCPCS: 90471; 90686

== ENCOUNTER → 2021-09-21 13:44 | Outpatient (CLI) | payer OTHER, SELFPAY ==
[2020-10-16 12:36] VITALS: BMI 26.6
[2021-09-21 15:59] LABS: COVID19 -Nasal RAPID Negative (Negative)
== END ==
PROVIDERS: PCP Family Medicine; Visit Provider Physician Assistant
DX: Z20.822 Contact with and (suspected) exposure to COVID-19 (principal); R09.81 Nasal congestion; R05.9 Cough, unspecified
CPT/HCPCS: 87635

== ENCOUNTER → 2022-02-01 06:59 | Outpatient (CLI) | payer OTHER, SELFPAY ==
[2020-10-16 12:36] VITALS: BMI 26.6
[2022-02-01 10:48] LABS: Clostridium Difficile Tox PCR Negative for C. diff (Negative)
== END ==
PROVIDERS: PCP Family Medicine; Referring Provider Family Medicine; Visit Provider Family Medicine
DX: R19.7 Diarrhea, unspecified (principal)
CPT/HCPCS: 87493

== ENCOUNTER → 2022-02-16 07:30 | Outpatient (CLI) | payer OTHER, SELFPAY ==
[2020-10-16 12:36] VITALS: BMI 26.6
[2022-02-16 08:24] LABS: Add Manual Diff / Slide Review NO; Basophils Absolute Auto 0 /uL (0-100); Basophils Percent Auto 0.2 % (0-2); Eosinophils Absolute Auto 100 /uL (0-450); Eosinophils Percent Auto 2.8 % (2-4); Hematocrit 37.8 % (36-46); Hemoglobin 13.1 g/dL (12.0-16.0); Lymphocytes Absolute Auto 1100 /uL (1100-4500); Lymphocytes Percent Auto 34.3 % (25-40); Mean Corpuscular HGB Conc 34.5 % (30-36); Mean Corpuscular Hemoglobin 31.9 PG (26-34); Mean Corpuscular Volume 92.2 fL (80-100); Monocytes Absolute Auto 300 /uL (0-900); Monocytes Percent Auto 7.8 % (3-14); Neutrophils Absolute Auto 1800 /uL (1500-7000); Neutrophils Percent Auto 54.9 % (50-75); Platelet Count 201 X10^3/uL (150-400); Red Cell Distribution Width 13.4 % (11.6-14.8); White Blood Cell Count 3.2 X10^3/uL (4.5-11.0)
[2022-02-16 08:38] LABS: Alanine Aminotransferase 14 IU/L (<35); Albumin 4.3 g/dL (3.5-5.0); Alkaline Phosphatase 45 U/L (38-126); Aspartate Aminotransferase 21 IU/L (14-36); BUN Creatinine Ratio 30.6 (6-22); Bilirubin Total 0.8 mg/dL (0.2-1.3); Blood Urea Nitrogen 19 mg/dL (7-17); Calcium 8.6 mg/dL (8.4-10.2); Carbon Dioxide 28 mmol/L (22-32); Chloride 107 mmol/L (98-107); Cholesterol 224 mg/dL (140-199); Estimated Glomerular Filt Rate > 60 mL/min (>60); Globulin 2.2 g/dL (1.7-4.1); Glucose 96 mg/dL (70-100); HDL Cholesterol 84 mg/dL (40-60); HEMOLYSIS < 15 (0-50); LDL Cholesterol Calculated 118 mg/dL (<100); Potassium 4.2 mmol/L (3.4-5.1); Sodium 139 mmol/L (137-145); Total Protein 6.5 g/dL (6.3-8.2); Triglycerides 108 mg/dL (35-150)
[2022-02-16 09:05] LABS: TSH w/ Reflex to FT4 1.48 uIU/mL (0.47-4.68)
--- NOTE | 2022-02-16 15:32 | DI.US.S_ITS ---
PROCEDURE: US ABDOMEN COMPLETE INDICATIONS: ABDOMINAL PAIN AND BLOATING TECHNIQUE: Real-time scanning was performed of the abdominal and retroperitoneal organs, with image documentation. COMPARISON: [facility], CT, CT ABDOMEN PELVIS W CON, 06/04/2020, 11:36. FINDINGS: Liver: Liver is normal in size and homogeneous in echotexture. The main portal vein demonstrates normal size and demonstrates normal appearing, hepatopetal flow. Gallbladder: A large gallstone is seen that measures up to 2.1 cm. The gallbladder wall is not thickened, measuring 3 mm or less. No specific pericholecystic fluid is seen. The sonographic Carballo sign is negative. Biliary ducts: Intrahepatic bile ducts are non-dilated. Extrahepatic bile duct caliber measures 8 mm. Normal is 6-7 mm or less in diameter, or 10 mm or less post-cholecystectomy. Pancreas: Visualized portions of the pancreas are sonographically normal. Spleen: Spleen is normal in size and homogeneous in echotexture. Kidneys: Kidneys are normal in size and echotexture. Right kidney measures 10.5 cm long; left kidney measures 12.5 cm long. No hydronephrosis or nephrolithiasis. No solid masses. Aorta: Visualized aorta is normal in caliber at less than 3 cm. Iliacs: Proximal common iliac arteries are normal in caliber at less than 2.5 cm. IVC: Intrahepatic inferior vena cava is patent. Miscellaneous: No free abdominal fluid. IMPRESSION: Large gallstone seen, without additional sonographic signs cholecystitis. Minimal biliary ductal dilatation seen, measuring 8 mm. Dictated by: Lewis Driscoll M.D. on 02/16/2022 at 15:42 Approved by: Lewis Driscoll M.D. on 02/16/2022 at 15:45
== END ==
PROVIDERS: PCP Family Medicine; Referring Provider Family Medicine; Visit Provider Family Medicine
DX: R19.7 Diarrhea, unspecified (principal); K80.20 Calculus of gallbladder without cholecystitis without obstruction; I47.1 Supraventricular tachycardia; M46.40 Discitis, unspecified, site unspecified
CPT/HCPCS: 36415; 76700; 80053; 80061; 84443; 85025

== ENCOUNTER → 2022-03-11 10:44 | Outpatient (CLI) | payer OTHER, SELFPAY ==
[2020-10-16 12:36] VITALS: BMI 26.6
--- NOTE | 2022-03-11 10:45 | DI.CT.S_ITS ---
PROCEDURE: CT ABDOMEN PELVIS W CON INDICATIONS: Severe RLQ pain - suspect hernia TECHNIQUE: After the administration of oral and IV contrast, axial sections were acquired from the lung bases to the pubic symphysis. Coronal and sagittal reformats were performed. For radiation dose reduction, the following was used: automated exposure control, adjustment of mA and/or kV according to patient size. COMPARISON: [facility], CT, CT ABDOMEN PELVIS W CON, 06/04/2020, 11:36. FINDINGS: Image quality: Excellent. Lung bases: Clear lung bases. No hiatal hernia. Heart: Minimally enlarged heart without pericardial effusion. ABDOMEN: Liver: Three small hypodensities in the cranial portion of the left hepatic lobe. No new masses. Gallbladder: Distended, normal wall thickness, and containing a peripherally calcified 2.1 cm stone dependently layering near the neck. Biliary ducts: Nondilated. Pancreas: Normal. Spleen: Normal size. Adrenal Glands: Mild, stable thickening of the medial limb left adrenal gland. No right adrenal nodule. Kidneys and Ureters: Normal enhancement. No hydronephrosis or hydroureter. No calcifications. Stomach and Bowel: Stomach, small bowel loops, and colon are unremarkable. Increased quantity of solid stool throughout the colon. The appendix was not seen. Peritoneum: No abnormal intraperitoneal fluid. No free air. Ventral Wall: Tiny fat containing umbilical hernia. Abdominal Nodes: No retroperitoneal or mesenteric adenopathy by size criteria. Vessels: Aorta and inferior vena cava are normal in size. PELVIS: Pelvic Organs: The uterus is surgically absent. Neither ovary was visible. No suspicious adnexal masses. Bladder: Decompressed. Pelvic Nodes: No enlarged lymph nodes. Miscellaneous: No inguinal hernias are seen. Mild anterior and posterior pelvic floor prolapse. Bones: Multilevel disc height loss. Moderate levoscoliosis with the apex at L3. IMPRESSION: 1. No evidence of hernia. 2. Moderate obstipation, most severe in the ascending colon. 3. Cholelithiasis without CT evidence of acute cholecystitis. 4. Mild pelvic floor prolapse may be secondary to Valsalva maneuver performed during scan. Dictated by: Dayna Alonso M.D. on 03/11/2022 at 13:09 Approved by: Dayna Alonso M.D. on 03/11/2022 at 13:17
== END ==
PROVIDERS: PCP Family Medicine; Referring Provider Physician Assistant; Visit Provider Physician Assistant
DX: K43.9 Ventral hernia without obstruction or gangrene (principal); R10.31 Right lower quadrant pain; K59.00 Constipation, unspecified; K80.20 Calculus of gallbladder without cholecystitis without obstruction; N81.89 Other female genital prolapse
CPT/HCPCS: 74177; Q9967

== ENCOUNTER → 2022-03-24 07:15 | Outpatient (CLI) | payer OTHER, SELFPAY ==
[2020-10-16 12:36] VITALS: BMI 26.6
--- NOTE | 2022-03-24 07:17 | DI.RAD.S_ITS ---
PROCEDURE: XR HIP W PEL IF DONE TOBI MIN 4V INDICATIONS: right hip pain TECHNIQUE: AP pelvis with lateral view(s) of the right and left hip(s). COMPARISON: None. FINDINGS: Bones: No fractures or dislocations. Pelvic ring appears intact. No suspicious bony lesions. Mild bilateral hip osseous hypertrophy. Soft tissues: The visualized bowel gas pattern is normal. No suspicious soft tissue calcifications. IMPRESSION: Mild bilateral hip osteoarthritis. Dictated by: Nichol Lockwood MD, PhD on 03/24/2022 at 9:23 Approved by: Nichol Lockwood MD, PhD on 03/24/2022 at 9:24
== END ==
PROVIDERS: PCP Family Medicine; Referring Provider Physician Assistant; Visit Provider Physician Assistant
DX: M25.551 Pain in right hip (principal); M16.0 Bilateral primary osteoarthritis of hip
CPT/HCPCS: 73522

== ENCOUNTER → 2022-04-02 14:30 | Outpatient (CLI) | payer OTHER, SELFPAY ==
[2020-10-16 12:36] VITALS: BMI 26.6
--- NOTE | 2022-04-02 14:31 | DI.US.S_ITS ---
PROCEDURE: US PELVIC COMPLETE INDICATIONS: RLQ pain - persistent TECHNIQUE: Real-time scanning was performed of the pelvic organs, with image documentation. Additional endovaginal scanning was necessary due to incomplete visualization of the adnexal and endometrial structures by transabdominal scanning. COMPARISON: [facility], CT, CT ABDOMEN PELVIS W CON, 03/11/2022, 10:47. [facility], US, PELVIC COMPLETE, 02/06/2014, 9:02. FINDINGS: Uterus: Prior hysterectomy. Ovaries: The left ovary is been surgically resected in the right ovary is not seen. No adnexal masses seen. Other: No pathologic free abdominal or pelvic fluid. The appendix is not visualized. IMPRESSION: Limited exam demonstrating no source for right lower quadrant pain. We strive to produce accurate, complete, and clear reports of imaging services. To assist us in improving patient care, this report was composed using standard report templates and voice recognition software. Therefore, it may contain abnormal punctuation, insertions and/or omissions. Occasional wrong-word or sound-alike substitutions may occur. Though we review the report and make efforts to correct it, we do recommend that the report be read carefully in proper context to recognize any text inaccuracies. Dictated by: Hari DUBON Interpreted: Brent North MD on 04/02/2022 at 15:50 Transcribed by: DOMINIQUE on 04/02/2022 at 15:51 Approved by: Joshua North M.D. on 04/13/2022 at 8:08
== END ==
PROVIDERS: PCP Family Medicine; Referring Provider Physician Assistant; Visit Provider Physician Assistant
DX: R10.31 Right lower quadrant pain (principal); Z90.710 Acquired absence of both cervix and uterus; Z90.721 Acquired absence of ovaries, unilateral
CPT/HCPCS: 76830; 76856

== ENCOUNTER → 2022-04-14 15:39 | Outpatient (CLI) | payer OTHER, SELFPAY ==
[2020-10-16 12:36] VITALS: BMI 26.6
--- NOTE | 2022-04-14 15:40 | DI.MG.S_ITS ---
BILATERAL DIGITAL SCREENING MAMMOGRAM 3D/2D WITH CAD: 04/14/2022 CLINICAL: Routine screening. Family history of breast cancer. Comparison is made to exams dated: 04/08/2021 mammogram, 03/03/2020 mammogram, and 01/10/2019 mammogram - [facility]. There are scattered fibroglandular elements in both breasts. Current study was also evaluated with a Computer Aided Detection (CAD) system. There are benign post operative findings in the left breast. No significant masses, calcifications, or other findings are seen in either breast. There has been no significant interval change. IMPRESSION: BENIGN There is no mammographic evidence of malignancy. A 1 year screening mammogram is recommended. Based on Tyrer-Cuzick model (a risk assessment model), the patient's lifetime risk is 29.9% and her 10 year risk is 12.0%. If a patient has an elevated risk, a more comprehensive evaluation should be considered and/or a referral to a genetic counselor. The [employer], [employer], and NCCN Guidelines advise the consideration of Breast MRI as an adjunct to screening mammography in patients whose Lifetime risk to develop breast cancer is 20% or higher. This exam was interpreted at Station ID: [id number]. NOTE: For mammograms, a report in lay terms will be sent to the patient. Approximately 15% of breast malignancies will not be visualized mammographically. In the management of a palpable breast mass, a negative mammogram must not discourage biopsy of a clinically suspicious lesion. Electronically Signed By: Saman Mast M.D., jr/néstor:04/15/2022 11:55:07 letter sent: Normal Exam ACR BI-RADS Category 2: Benign Finding(s) 3342F
== END ==
PROVIDERS: PCP Family Medicine; Referring Provider Family Medicine; Visit Provider Family Medicine
DX: Z12.31 Encounter for screening mammogram for malignant neoplasm of breast (principal); Z80.3 Family history of malignant neoplasm of breast
CPT/HCPCS: 77063; 77067

== ENCOUNTER → 2022-07-09 16:44 | Outpatient (CLI) | payer OTHER, SELFPAY ==
[2020-10-16 12:36] VITALS: BMI 26.6
== END ==
PROVIDERS: PCP Family Medicine; Referring Provider Internal Medicine; Visit Provider Internal Medicine
DX: Z23 Encounter for immunization (principal)
CPT/HCPCS: 90471; 90686

== ENCOUNTER → 2023-01-09 10:44 | Outpatient (CLI) | payer OTHER, SELFPAY ==
[2022-11-25 10:58] VITALS: BMI 26.6
--- NOTE | 2023-01-09 10:47 | DI.MRI.S_ITS ---
PROCEDURE: MR HIP LT WO/W CON INDICATIONS: Discitis, unspecified, lumbar region TECHNIQUE: Noncontrast coronal T1 spin echo and STIR through the bony pelvis. Coronal and axial T2 fast spin echo with fat saturation, axial T1 spin echo with fat saturation, sagittal T1 spin echo, and oblique axial T2 fast spin echo with fat saturation through the hip. Post-contrast axial, coronal, and sagittal spin echo with fat saturation through the hip. COMPARISON: None. FINDINGS: Image quality: Excellent. Bones and joints: Dceq-fm-uhmiicrl bilateral hip joint osteoarthritic changes are seen with superior joint space narrowing, subchondral sclerosis slightly worse on the right side. No marrow edema. No suspicious osseous enhancement. No intraosseous lesions or fractures. No avascular necrosis of the femoral heads. The visualized lower lumbar spine appears normally aligned. Tendons and ligaments: Xsqg-my-ovbtozys left gluteus medius and minimus tendinosis and low-grade partial-thickness tear at their insertion on greater trochanter is seen, without associated muscle atrophy. The nearby proximal iliotibial band also appears intact. The iliopsoas tendon appears intact, without adjacent bursal fluid collections or evidence for impingement syndrome. The origin of the hamstring tendon is thickened with adjacent soft tissue edema at the ischial tuberosity. The straight and reflected heads of the rectus femoris muscle origin appear intact, as well as the conjoint tendon. The ligamentum teres appears intact where visualized. Labrum and cartilage: The acetabular labrum appears intact in the absence of intra-articular contrast. Thinning of cartilage surface of the femoral head is seen. The alpha angle of the femur is within normal limits at less than 55 degrees. Soft tissues: No suspicious soft tissue enhancement. Visualized muscles demonstrate normal bulk and internal signal. Quadratus femoris muscle demonstrates no internal edema to suggest ischiofemoral impingement. The proximal sciatic neurovascular bundle appears normal adjacent to the hamstring tendons. No free pelvic fluid. Bladder wall thickness is normal. Genitourinary structures and bowel loops appear normal where visualized. IMPRESSION: 1. Gcwf-hp-vkqmtjes bilateral hip joint osteoarthritis. No hip fracture or dislocation. No evidence of abnormal intraosseous enhancement. No suspicious intraosseous lesion or avascular necrosis of femoral head. 2. Tendinosis and low-grade partial-thickness tear involving distal left gluteus medius and minimus tendons at their insertion on greater trochanter. Tendinosis involving left hamstring tendon origins at ischial tuberosity is also seen. No other muscle or tendon signal abnormalities. 3. No enhancing soft tissue mass or abnormal fluid collection. No significant left hip joint effusion. 4. No evidence of gross left hip labral tear. Dictated by: Vincent Valle M.D. on 01/10/2023 at 9:42 Approved by: Vincent Valle M.D. on 01/10/2023 at 10:06
--- NOTE | 2023-01-09 10:47 | DI.MRI.S_ITS ---
PROCEDURE: MR LUMBAR SPINE WO/W CON INDICATIONS: Discitis, unspecified, lumbar region TECHNIQUE: Noncontrast sagittal T1 spin echo and T2 fast spin echo, sagittal STIR, axial T1 and T2 fast spin echo through the lumbar spine. In cases with scoliosis, additional coronal T2 fast spin echo may be performed. After the administration of contrast, sagittal and axial T1 spin echo with fat saturation through the lumbar spine. COMPARISON: [facility], MR, MR HIP LT WO/W CON, 01/09/2023, 11:30. [facility], CT, CT ABDOMEN PELVIS W CON, 03/11/2022, 10:47. [facility], MR, MR LUMBAR SPINE WO/W CON, 02/08/2021, 9:07. [facility], MR, MR LUMBAR SPINE WITH/WITHOUT CONTRAST, 12/09/2020, 13:08. [facility], MR, MR LUMBAR SPINE WITH/WITHOUT CONTRAST, 11/13/2020, 16:31. FINDINGS: Image quality: Excellent. Alignment and curvature: Yxcd-bj-rduozvuj levoconvex lumbar scoliosis is seen. There is minimal retrolisthesis seen at the L2-L3 level. Mild grade 1 anterolisthesis is seen at L4-L5. No associated pars defects are seen. Marrow: Marrow is of normal overall signal. No acute vertebral body compression fractures. No suspicious marrow enhancement. Spinal cord: Conus medullaris terminates at the L1 level. Visualized spinal cord demonstrates normal signal, without suspicious enhancement. Paraspinous soft tissues: No paravertebral masses or abnormal enhancement. T12-L1: The disc height and disk signal are relatively well-preserved. Mild disc bulge is seen, which is eccentric to the left. There is a central/left disc protrusion seen. Moderate facet joint hypertrophy is seen. There is mild left-sided and no right-sided neural foraminal narrowing. Mild central canal narrowing is seen. L1-L2: The disc height and disk signal are relatively well-preserved. Mild generalized disc bulge is seen. Mild facet joint hypertrophy is seen. No significant neural foraminal or central canal narrowing can be seen. L2-L3: At least moderate loss of disc height and disc signal can be seen. Moderate generalized disc bulge is seen. At least moderate facet hypertrophy is seen. There is a nonenhancing perineural cyst involving the left neural foramen, as on series 6 image 16. Nbay-xr-hlgiolio bilateral neural foraminal narrowing can be seen. Moderate central canal narrowing is seen. These imaging findings have mildly progressed compared to the prior study. L3-L4: At least moderate loss of disc height and disc signal can be seen. There is mild enhancement seen along the disc level itself, as on series 11, image 20. Bridging endplate osteophytes are seen. Reactive marrow endplate changes are seen, which are hyperintense on T1-weighted and T2-weighted imaging and most consistent with fatty metaplasia (Modic type II changes). Moderate disc bulge is seen, which is eccentric to the right. At least moderate facet hypertrophy is seen. There is at least moderate right-sided neural foraminal narrowing, with a mild degree of compression upon the exiting right L3 nerve root. No significant left-sided neural foraminal narrowing is seen. Moderate central canal narrowing is seen. When comparison is made with the prior images, these findings are similar. L4-L5: Bony fusion is seen at this level. There has been removal of portions of the posterior elements. Mild generalized disc bulge is seen. Mild facet joint hypertrophy is seen. There is mild right-sided and no left-sided neural foraminal narrowing. No central canal narrowing is seen. Stable from the prior study. L5-S1: Moderate loss of disc height is seen. Loss of disc signal is seen. Mild to moderate disc bulge is seen, which is eccentric to the left. At least moderate facet hypertrophy is seen. There has been removal of portions of the posterior elements. At least moderate bilateral neural foraminal narrowing can be seen. No central canal narrowing is seen. Stable from the prior study. IMPRESSION: Levoconvex scoliosis and multiple levels of degenerative change can be seen. At the L3-L4 level, there is a mild degree of enhancement seen along the disc level, which is felt most likely to be related to degenerative enhancement. No additional findings of continued discitis/osteomyelitis can be seen. The degenerative change at L2-L3 is slightly progressed compared to 2020. Otherwise, stable degenerative change. Dictated by: Lewis Driscoll M.D. on 01/10/2023 at 11:03 Approved by: Lewis Driscoll M.D. on 01/10/2023 at 11:13
== END ==
PROVIDERS: PCP Family Medicine; Referring Provider Orthopaedic Surgery; Visit Provider Orthopaedic Surgery
DX: M16.0 Bilateral primary osteoarthritis of hip (principal); M46.46 Discitis, unspecified, lumbar region; M47.816 Spondylosis without myelopathy or radiculopathy, lumbar region; S76.012A Strain of muscle, fascia and tendon of left hip, initial encounter; M41.9 Scoliosis, unspecified
CPT/HCPCS: 72158; 73723; A9579

== ENCOUNTER 2023-01-24 07:47 | Outpatient (RCR) | payer OTHER, SELFPAY ==
[2022-11-25 10:58] VITALS: BMI 26.6
--- NOTE | 2023-01-24 14:32 | PT.OIE ---
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 (01/24/23) Scoliosis, unspecified (01/24/23) Difficulty in walking, not elsewhere classified (01/24/23) Abnormal posture (01/24/23) Weakness (01/24/23) Past Medical History (Last Updated 11/30/22 @ 20:14 by Nia Lao PA-C) Acute viral syndrome Degenerative disc disease, cervical Diskitis Insomnia Kidney stones Obstructive sleep apnea Palpitations (09/07/11) Snoring (09/07/11) Thoracic back pain Past Surgical History (Last Updated 11/30/22 @ 20:14 by Nia Lao PA-C) H/O melanoma excision History of bilateral salpingo-oophorectomy (BSO) History of cholecystectomy History of left salpingo-oophorectomy (2008) History of spinal fusion Status post vaginal hysterectomy Visit Care Team Role Provider Type Saman Barry MD Family Provider Physician Primary Care Provider Specialty: Family Practice Address: [address] [place] [address], [facility] Email: [email or web address] Toby Truong MD Attending Provider Physician Referring Provider Specialty: Orthopedic Surgery Address: [address] [place] [address], [id number] Email: Physical Therapy Initial Evaluation PT-OP-A Visit Information Start: 01/20/23 13:58 Freq: Status: Active Protocol: Document 01/24/23 08:18 [facility] (Rec: 01/24/23 09:05 [facility] [id number]) Out-Patient Physical Therapy Visit Information Visit Information Visit Type Initial Evaluation Visit Start Time 08:20 Visit Stop Time 09:02 Total Visit Minutes 42 Visit Number 1 Number of FLIGHT [employer]INE[employer] HEL[employer] Visits 0 PT-OP-B Current Condition Start: 01/20/23 13:58 Freq: Status: Active Protocol: Document 01/24/23 08:18 [facility] (Rec: 01/24/23 09:05 [facility] [id number]) Current Condition History of Current Condition Current Complaints back pain w/ leg pain L History of Current Condition Pt reports she has hx of really bad back w/surgeris. In 2020, she got discitis and osteomyelitis of L2-3 and it took her a full year to recover. She was down to 160lbs before this and was doing TRX and hiking and biking. She started getting back into things and in Aug 2022 and tried rolling out the ITB as son suggested it as she was having L lat hip pain. She was trying to go for walks d/t concern to gaining weight but starting fe not being able to walk. the L lat hip pain is constant and the only thing that helps is heat. Pain now radiates down leg. 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 Pt reports occ back pain and sharp pain w/turning . Pt had fusion of L4-5 fusion and had hardware removed a year later. Pt reprots the first time the screw hit a pedicle n. Cannot go up steps w/o pain and LLE feeling like it wants to get out. Takes ibuprofen and tylenol daily for years (2 of each twice a day since discitis) Prior Treatments and Tests MRI LB copied: MPRESSION: Levoconvex scoliosis and multiple levels of degenerative change can be seen. At the L3-L4 level, there is a mild degree of enhancement seen along the disc level, which is felt most likely to be related to degenerative enhancement. No additional findings of continued discitis /osteomyelitis can be seen. The degenerative change at L2- L3 is slightly progressed compared to 2020. Otherwise, stable degenerative change. MRI L hip copied: IMPRESSION: 1. Lbll-tr-lgbwuzlc bilateral hip joint osteoarthritis. No hip fracture or dislocation. No evidence of abnormal intraosseous enhancement. No suspicious intraosseous lesion or avascular necrosis of femoral head. 2. Tendinosis and low-grade partial-thickness tear involving distal left gluteus medius and minimus tendons at their insertion on greater trochanter. Tendinosis involving left hamstring tendon origins at ischial tuberosity is also seen. No other muscle or tendon signal abnormalities. 3. No enhancing soft tissue mass or abnormal fluid collection. No significant left hip joint effusion. 4. No evidence of gross left hip labral tear. Treatment Goals Patient/Caregiver Goals up stairs, be able to return to walking out and workouts, hiking, biking, be able to get into the kayak PT-OP-C Subjective Start: 01/20/23 13:58 Freq: Status: Active Protocol: Document 01/24/23 08:18 [facility] (Rec: 01/24/23 09:05 [facility] [id number]) Patient Questionnaires Lower Extremity Functional Scale LEFS Score Oswestry Low Back Index Oswestry Score 50 OP-PT Pain Assessment Location L leg Pain Location Details L lat hip, lat thigh and ant/ lat lower leg to ankle Scale Used 5-7/10 Description- Other clamp around ankle) Frequency Constant Pain Aggravating Factors Standing,Walking,Stair Climbing,Lifting Other Pain Aggravating Factors put LLE onto RLE, work Pain Alleviating Factors Heat PT-OP-G Mobility & Gait Start: 01/20/23 13:58 Freq: Status: Active Protocol: Document 01/24/23 08:18 [facility] (Rec: 01/24/23 09:05 [facility] [id number]) OP Gait Assessment Comments Gait Comments Dec stance time LLE w/dec push off and lat lean over LLE PT-OP-J Posture/Palpation/Skin Start: 01/20/23 13:58 Freq: Status: Active Protocol: Document 01/24/23 08:18 [facility] (Rec: 01/24/23 09:05 [facility] [id number]) Posture Evaluation Comments Posture Comments R iliac crest higher; R greater trochanter sligthly higher PT-OP-K Range of Motion Start: 01/20/23 13:58 Freq: Status: Active Protocol: Document 01/24/23 08:18 [facility] (Rec: 01/24/23 09:05 [facility] [id number]) Lumbar Spine Range of Motion Lumbar Spine Active Percentage Flexion 20 Extension 50 Rotation Left 40 Rotation Right 40 Lateral Flexion Left 50 Lateral Flexion Right 60 Comments pain in back w/flex; relief w/ ext & SB B; PT-OP-L Special Tests Start: 01/20/23 13:58 Freq: Status: Active Protocol: Document 01/24/23 08:18 [facility] (Rec: 01/24/23 09:05 [facility] [id number]) Special Tests Lumbar Spine Special Tests SLR Comments L positive neural tension OBers Test Results L positive Slump Test Results positive for neural tension L> R ext sit Test Results L dural and neural tension L; R neural tension PT-OP-M Strength Start: 01/20/23 13:58 Freq: Status: Active Protocol: Document 01/24/23 08:18 [facility] (Rec: 01/24/23 09:05 [facility] [id number]) Hip Strength Hip Manual Muscle Testing Right Flexion (L2) 4+ Good+ Extension (S1) 3+ Fair+ Adduction 5 Normal External Rotation 4- Good- Internal Rotation 4+ Good+ Left Flexion (L2) 3 Fair Extension (S1) 3 Fair Abduction 3 Fair External Rotation 3+ Fair+ Internal Rotation 3 Fair Knee Strength Knee Manual Muscle Testing Right Flexion (S2) 5 Normal Extension (L3) 5 Normal Left Flexion (S2) 4- Good- Extension (L3) 3 Fair Ankle/Foot Strength Ankle and Foot Manual Muscle Testing Left Dorsiflexion (L4) 4- Good- Plantarflexion (S1) 3 Fair Comments 2 heel raises after Right Dorsiflexion (L4) 5 Normal Plantarflexion (S1) 5 Normal Comments 20 heel raises (tightness in HS by glute) PT-OP-Q Treatments Start: 01/20/23 13:58 Freq: Status: Active Protocol: Document 01/24/23 08:18 [facility] (Rec: 01/24/23 13:56 [facility] [id number]) Therapeutic Exercises Other Exercises tail wags Side bilateral Reps/Minutes 6 cat/cow Reps/Minutes 6 PT-OP-T Assessment and Plan Start: 01/20/23 13:58 Freq: Status: Active Protocol: Document 01/24/23 08:18 [facility] (Rec: 01/24/23 09:05 [facility] [id number]) Physical Therapy Assessment Rehab Potential Rehabilitation Potential Good Evaluation Complexity Number of Personal Factors/Comorbidities 3 or More Number of Body Systems Impaired 4 or More Clinical Presentation at Evaluation Evolving Impairments Impairments Activity Tolerance,Balance, Functional Activities, Functional Mobility,Gait,Pain, Posture,ROM,Soft Tissue Mobility,Strength,Transfers Goals strength Short Term Goal (STG) Pt willb e indpe w/HEP STG Duration 03/03/23 Fpc Goal (LTG) Pt will score 4+/5 BLE MMT and at least 3/5 LPM to show improved strength and stiablity to allow pt to do typical daily activities without inc pain. LTG Duration 04/17 walking Short Term Goal (STG) Pt will be able to return to at least 1 mile walks w/no more than 3/10 leg pain STG Duration 03/03/23 Fpc Goal (LTG) Pt will be able to return to longer walkers on any surface she wants (trails, uneven, hills, etc) without L leg pain greater than 1/10 LTG Duration 04/17 activities Short Term Goal (STG) pt will be able to go up/down stairs reciprocally w/o rail w /o inc pain. STG Duration 03/03/23 Fpc Goal (LTG) Pt will be able to return to TRX and other strengthening workouts w/o inc pain. LTG Duration 04/17 LEFS Impairment 23/80 Short Term Goal (STG) Pt will improve score to at least 40/80 to show improved functional ability. STG Duration 03/03/23 Fpc Goal (LTG) Pt will improve score to at least 60/80 to show improved functional ability. LTG Duration 04/18/23 Assessment Summary Assessment Pt presents to PT w/recent L hip pain starting a few months ago and now radiating down L lat and ant LE and stopping at ankle. Pt has long history of back pain including mult surgeries inclusind L4-5 fusiona nd removal of hardware w/dural tear during this procedure. She has managed LBP w/maintaining activity and some bouts of past PT and feels confident in managing her typical LBP but not this L leg pain as it has gotten worse since it started and for the past 2 months, pt has been unable to even walk as a workout making her more sedentary than normal. She does have small tearing of glute med and minimus noted in MRI along w/scoliosis and multilevel degeneration that is mostly stable since last MRI in 2020. Pt would benefit from skilled PT in order to return back to her typical active lifestyle w/managable pain levels. Physical Therapy Plan Frequency and Duration Frequency of Treatment 2x/wk 6 wk;1x/wk 6wk Duration of treatment (weeks) 12 Plan of Care Start Date 01/24/23 Plan of Care End Date 04/18/23 Therapeutic Interventions Therapeutic Interventions Balance Training,Gait Training ,Home Exercise Program,Joint Mobilizations,Manual Therapy, Orthotic/Prosthetic Management ,Patient/Caregiver Education, Self-Care/Home Management,Soft Tissue Mobilization,Taping, Therapeutic Activities, Therapeutic Exercises Modalities Cold Pack/Ice Massage,Electric Stimulation,Hot Packs, Infrared Therapy,Iontophoresis ,Traction- Mechanical, Ultrasound Next Visit Focus/Plan Next Note Type Treatment Note Next Visit Plan try stationary bike x5 min; supine core exercises; manual to hips, sacrum and innominate for mobility.
--- NOTE | 2023-01-24 14:33 | PT.OPPOC ---
Physical, Occupational & Speech Therapy At [facility] 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 (01/24/23) Scoliosis, unspecified (01/24/23) Difficulty in walking, not elsewhere classified (01/24/23) Abnormal posture (01/24/23) Weakness (01/24/23) Visit Care Team Role Provider Type Saman Barry MD Family Provider Physician Primary Care Provider Specialty: Family Practice Address: [address] [place] [address], [id number] Email: [email or web address] Toby Truong MD Attending Provider Physician Referring Provider Specialty: Orthopedic Surgery Address: [address] [place] [address], [id number] Email: Plan Of Care PT-OP-T Assessment and Plan Start: 01/20/23 13:58 Freq: Status: Active Protocol: Document 01/24/23 08:18 [facility] (Rec: 01/24/23 09:05 [facility] [id number]) Physical Therapy Assessment Rehab Potential Rehabilitation Potential Good Evaluation Complexity Number of Personal Factors/Comorbidities 3 or More Number of Body Systems Impaired 4 or More Clinical Presentation at Evaluation Evolving Impairments Impairments Activity Tolerance,Balance, Functional Activities, Functional Mobility,Gait,Pain, Posture,ROM,Soft Tissue Mobility,Strength,Transfers Goals strength Short Term Goal (STG) Pt willb e indpe w/HEP STG Duration 03/03/23 Industrial Maintenance Instructor Goal (LTG) Pt will score 4+/5 BLE MMT and at least 3/5 LPM to show improved strength and stiablity to allow pt to do typical daily activities without inc pain. LTG Duration 04/17 walking Short Term Goal (STG) Pt will be able to return to at least 1 mile walks w/no more than 3/10 leg pain STG Duration 03/03/23 Detention Goal (LTG) Pt will be able to return to longer walkers on any surface she wants (trails, uneven, hills, etc) without L leg pain greater than 1/10 LTG Duration 04/17 activities Short Term Goal (STG) pt will be able to go up/down stairs reciprocally w/o rail w /o inc pain. STG Duration 03/03/23 Detention Goal (LTG) Pt will be able to return to TRX and other strengthening workouts w/o inc pain. LTG Duration 04/17 LEFS Impairment 23/ Short Term Goal (STG) Pt will improve score to at least 40/80 to show improved functional ability. STG Duration 03/03/23 Industrial Maintenance Instructor Goal (LTG) Pt will improve score to at least 60/80 to show improved functional ability. LTG Duration 04/18/23 Assessment Summary Assessment Pt presents to PT w/recent L hip pain starting a few months ago and now radiating down L lat and ant LE and stopping at ankle. Pt has long history of back pain including mult surgeries inclusind L4-5 fusiona nd removal of hardware w/dural tear during this procedure. She has managed LBP w/maintaining activity and some bouts of past PT and feels confident in managing her typical LBP but not this L leg pain as it has gotten worse since it started and for the past 2 months, pt has been unable to even walk as a workout making her more sedentary than normal. She does have small tearing of glute med and minimus noted in MRI along w/scoliosis and multilevel degeneration that is mostly stable since last MRI in 2020. Pt would benefit from skilled PT in order to return back to her typical active lifestyle w/managable pain levels. Physical Therapy Plan Frequency and Duration Frequency of Treatment 2x/wk 6 wk;1x/wk 6wk Duration of treatment (weeks) 12 Plan of Care Start Date 01/24/23 Plan of Care End Date 04/18/23 Therapeutic Interventions Therapeutic Interventions Balance Training,Gait Training ,Home Exercise Program,Joint Mobilizations,Manual Therapy, Orthotic/Prosthetic Management ,Patient/Caregiver Education, Self-Care/Home Management,Soft Tissue Mobilization,Taping, Therapeutic Activities, Therapeutic Exercises Modalities Cold Pack/Ice Massage,Electric Stimulation,Hot Packs, Infrared Therapy,Iontophoresis ,Traction- Mechanical, Ultrasound Next Visit Focus/Plan Next Note Type Treatment Note Next Visit Plan try stationary bike x5 min; supine core exercises; manual to hips, sacrum and innominate for mobility. Plan of Care Dates Plan of Care Start Date 01/24/23 Plan of Care End Date 04/18/23 Electronically Signed by: Mine Patel, PT 01/24/23 1434 If you are in agreement with this Plan of Care, please return a signed and dated copy. I have reviewed this Plan of Care and certify that the skilled therapy services above are required to meet the patient?s needs. Physician Signature Date Printed Name and Credentials Clinical Instructor Signature Printed Name and Credentials
--- NOTE | 2023-02-16 16:06 | PT.OPDS ---
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 (01/24/23) Scoliosis, unspecified (01/24/23) Difficulty in walking, not elsewhere classified (01/24/23) Abnormal posture (01/24/23) Weakness (01/24/23) Visit Care Team Role Provider Type Saman Barry MD Family Provider Physician Primary Care Provider Specialty: Family Practice Address: [address] [place] [address], [id number] Email: [email or web address] Toby Truong MD Attending Provider Physician Referring Provider Specialty: Orthopedic Surgery Address: [address] [place] [address], [id number] Email: Visit Number Visit Number 1 Discharge Summary PT-OP-B Current Condition Start: 01/20/23 13:58 Freq: Status: Active Protocol: Document 01/24/23 08:18 [facility] (Rec: 01/24/23 09:05 [facility] [id number]) Current Condition History of Current Condition Current Complaints back pain w/ leg pain L History of Current Condition Pt reports she has hx of really bad back w/surgeris. In 2020, she got discitis and osteomyelitis of L2-3 and it took her a full year to recover. She was down to 160lbs before this and was doing TRX and hiking and biking. She started getting back into things and in Aug 2022 and tried rolling out the ITB as son suggested it as she was having L lat hip pain. She was trying to go for walks d/t concern to gaining weight but starting feb not being able to walk. the L lat hip pain is constant and the only thing that helps is heat. Pain now radiates down leg. 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 Pt reports occ back pain and sharp pain w/turning . Pt had fusion of L4-5 fusion and had hardware removed a year later. Pt reprots the first time the screw hit a pedicle n. Cannot go up steps w/o pain and LLE feeling like it wants to get out. Takes ibuprofen and tylenol daily for years (2 of each twice a day since discitis) Prior Treatments and Tests MRI LB copied: MPRESSION: Levoconvex scoliosis and multiple levels of degenerative change can be seen. At the L3-L4 level, there is a mild degree of enhancement seen along the disc level, which is felt most likely to be related to degenerative enhancement. No additional findings of continued discitis /osteomyelitis can be seen. The degenerative change at L2- L3 is slightly progressed compared to 2020. Otherwise, stable degenerative change. MRI L hip copied: IMPRESSION: 1. Akpi-fi-agjnxbdh bilateral hip joint osteoarthritis. No hip fracture or dislocation. No evidence of abnormal intraosseous enhancement. No suspicious intraosseous lesion or avascular necrosis of femoral head. 2. Tendinosis and low-grade partial-thickness tear involving distal left gluteus medius and minimus tendons at their insertion on greater trochanter. Tendinosis involving left hamstring tendon origins at ischial tuberosity is also seen. No other muscle or tendon signal abnormalities. 3. No enhancing soft tissue mass or abnormal fluid collection. No significant left hip joint effusion. 4. No evidence of gross left hip labral tear. Treatment Goals Patient/Caregiver Goals up stairs, be able to return to walking out and workouts, hiking, biking, be able to get into the kayak PT-OP-C Subjective Start: 01/20/23 13:58 Freq: Status: Active Protocol: Document 01/24/23 08:18 [facility] (Rec: 01/24/23 09:05 [facility] [id number]) Patient Questionnaires Lower Extremity Functional Scale LEFS Score 23/80 Oswestry Low Back Index Oswestry Score 24/50 OP-PT Pain Assessment Location L leg Pain Location Details L lat hip, lat thigh and ant/ lat lower leg to ankle Scale Used 5-7/10 Description- Other clamp around ankle) Frequency Constant Pain Aggravating Factors Standing,Walking,Stair Climbing,Lifting Other Pain Aggravating Factors put LLE onto RLE, work Pain Alleviating Factors Heat PT-OP-G Mobility & Gait Start: 01/20/23 13:58 Freq: Status: Active Protocol: Document 01/24/23 08:18 [facility] (Rec: 01/24/23 09:05 [facility] [id number]) OP Gait Assessment Comments Gait Comments Dec stance time LLE w/dec push off and lat lean over LLE PT-OP-J Posture/Palpation/Skin Start: 01/20/23 13:58 Freq: Status: Active Protocol: Document 01/24/23 08:18 [facility] (Rec: 01/24/23 09:05 [facility] [id number]) Posture Evaluation Comments Posture Comments R iliac crest higher; R greater trochanter sligthly higher PT-OP-K Range of Motion Start: 01/20/23 13:58 Freq: Status: Active Protocol: Document 01/24/23 08:18 [facility] (Rec: 01/24/23 09:05 [facility] [id number]) Lumbar Spine Range of Motion Lumbar Spine Active Percentage Flexion 20 Extension 50 Rotation Left 40 Rotation Right 40 Lateral Flexion Left 50 Lateral Flexion Right 60 Comments pain in back w/flex; relief w/ ext & SB B; PT-OP-L Special Tests Start: 01/20/23 13:58 Freq: Status: Active Protocol: Document 01/24/23 08:18 [facility] (Rec: 01/24/23 09:05 [facility] [id number]) Special Tests Lumbar Spine Special Tests SLR Comments L positive neural tension OBers Test Results L positive Slump Test Results positive for neural tension L> R ext sit Test Results L dural and neural tension L; R neural tension PT-OP-M Strength Start: 01/20/23 13:58 Freq: Status: Active Protocol: Document 01/24/23 08:18 [facility] (Rec: 01/24/23 09:05 [facility] [id number]) Hip Strength Hip Manual Muscle Testing Right Flexion (L2) 4+ Good+ Extension (S1) 3+ Fair+ Adduction 5 Normal External Rotation 4- Good- Internal Rotation 4+ Good+ Left Flexion (L2) 3 Fair Extension (S1) 3 Fair Abduction 3 Fair External Rotation 3+ Fair+ Internal Rotation 3 Fair Knee Strength Knee Manual Muscle Testing Right Flexion (S2) 5 Normal Extension (L3) 5 Normal Left Flexion (S2) 4- Good- Extension (L3) 3 Fair Ankle/Foot Strength Ankle and Foot Manual Muscle Testing Left Dorsiflexion (L4) 4- Good- Plantarflexion (S1) 3 Fair Comments 2 heel raises after Right Dorsiflexion (L4) 5 Normal Plantarflexion (S1) 5 Normal Comments 20 heel raises (tightness in HS by glute) PT-OP-T Assessment and Plan Start: 01/20/23 13:58 Freq: Status: Active Protocol: Document 02/16/23 16:05 [facility] (Rec: 02/16/23 16:06 [facility] [id number]) Physical Therapy Assessment Assessment Summary Assessment Pt was seen only for IE and chose to cancel all follow ups as she cannot be seen by SYSTEM SALES CONSULTANT per insurance(some were scheduled w/SYSTEM SALES CONSULTANT) and there were no consistant openings w/ PT so pt chose to go elsewhere . DC d/t no longer attending PT here Physical Therapy Plan Discharge Physical Therapy Discharge Reasons No Longer Attending PT
== END 2023-02-22 15:58 | disposition home or self-care (01) ==
LOC: PHYS 07:47
PROVIDERS: Absent Provider Family Medicine; Family Provider Family Medicine; PCP Family Medicine; Referring Provider Orthopaedic Surgery; Visit Provider Orthopaedic Surgery
DX: M41.9 Scoliosis, unspecified (principal); M16.2 Bilateral osteoarthritis resulting from hip dysplasia; R53.1 Weakness; R29.3 Abnormal posture; R26.2 Difficulty in walking, not elsewhere classified
CPT/HCPCS: 97162

== ENCOUNTER → 2023-04-15 07:29 | Outpatient (CLI) | payer OTHER, SELFPAY ==
[2022-11-25 10:58] VITALS: BMI 26.6
--- NOTE | 2023-04-15 | DI.MG.S_ITS ---
BILATERAL DIGITAL SCREENING MAMMOGRAM 3D/2D WITH CAD: 04/15/2023 CLINICAL: Routine screening. Family history of breast cancer. Comparison is made to exams dated: 04/14/2022 mammogram, 04/08/2021 mammogram, and 03/03/2020 mammogram - [facility]. Both breasts are heterogeneously dense, which may obscure small masses (category c / 51-75% glandular tissue). Current study was also evaluated with a Computer Aided Detection (CAD) system. There are benign post operative findings in the left breast. No significant masses, calcifications, or other findings are seen in either breast. There has been no significant interval change. IMPRESSION: BENIGN There is no mammographic evidence of malignancy. A 1 year screening mammogram is recommended. Based on Tyrer-Cuzick model (a risk assessment model), the patient's lifetime risk is 41.5% and her 10 year risk is 18.4%. If a patient has an elevated risk, a more comprehensive evaluation should be considered and/or a referral to a genetic counselor. The [place] [employer], [place] [employer], and NCCN Guidelines advise the consideration of Breast MRI as an adjunct to screening mammography in patients whose Lifetime risk to develop breast cancer is 20% or higher. This exam was interpreted at Station ID: [id number]. NOTE: For mammograms, a report in lay terms will be sent to the patient. Approximately 15% of breast malignancies will not be visualized mammographically. In the management of a palpable breast mass, a negative mammogram must not discourage biopsy of a clinically suspicious lesion. Electronically Signed By: Marcos rolon/néstor:04/15/2023 09:44:07 letter sent: Normal Exam ACR BI-RADS Category 2: Benign Finding(s) 3342F
== END ==
PROVIDERS: Family Provider Family Medicine; PCP Family Medicine; Referring Provider Family Medicine; Visit Provider Family Medicine
DX: Z12.31 Encounter for screening mammogram for malignant neoplasm of breast (principal); Z80.3 Family history of malignant neoplasm of breast
CPT/HCPCS: 77063; 77067

== ENCOUNTER → 2023-05-09 06:42 | Outpatient (CLI) | payer OTHER, SELFPAY ==
[2022-11-25 10:58] VITALS: BMI 26.6
--- NOTE | 2023-05-09 | DI.CT.S_ITS ---
PROCEDURE: CT LUMBAR SPINE WO CON INDICATIONS: Spinal stenosis, lumbar region with neurogenic cla TECHNIQUE: Noncontrast 3 mm thick sections acquired from the T12 level to the sacrum. Sagittal and coronal reformats were constructed. For radiation dose reduction, the following was used: automated exposure control. COMPARISON: [facility], MR, MR LUMBAR SPINE WO/W CON, 01/09/2023, 11:05. FINDINGS: Image quality: Excellent. Bones: Postsurgical changes again seen from L4-5 and L5-S1 laminectomies. Levoconvex curvature of the lumbar spine is again seen. Mild grade 1 anterolisthesis at L3-4 and grade 1 retrolisthesis at L5-S1, not significantly changed. No acute vertebral body compression fractures. No suspicious lytic or blastic bony lesions. No pars defects. Degenerative changes are included in the lower thoracic spine at the margins of the field of view of this exam. T12-L1: Bilateral facet hypertrophy is seen and there is mild disc bulging that is eccentric towards the left. Findings result in mild narrowing of the spinal canal and mild left neural foraminal narrowing without significant right neural foraminal narrowing. L1-L2: Mild disc space narrowing and circumferential disc bulging as well as mild facet hypertrophy. Findings not result in significant spinal canal stenosis or neural foraminal narrowing. L2-L3: Severe loss of disc space height with vacuum disc phenomenon, mild tear pharyngeal disc bulging, and bilateral facet hypertrophy. Findings result in moderate narrowing of the spinal canal as well as mild to moderate bilateral neural foraminal narrowing. L3-L4: Mild grade 1 anterolisthesis as well as disc space narrowing and circumferential disc bulging and moderate to severe facet hypertrophy. Findings result in moderate narrowing of the spinal canal as well as moderate right neural foraminal narrowing without significant left neural foraminal narrowing. L4-L5: Status post laminectomy with chronic bony fusion. The spinal canal is decompressed. There is mild right neural foraminal narrowing without significant left neural foraminal narrowing. L5-S1: Postsurgical changes from laminectomy with decompression of the spinal canal. Grade 1 retrolisthesis is noted. There is disc space narrowing and bilateral facet hypertrophy. Moderate bilateral neural foraminal narrowing is noted. Soft tissues: No retroperitoneal masses or hematomas. Visualized aorta is normal in caliber. Status post cholecystectomy. IMPRESSION: 1. Levoconvex curvature and multilevel degenerative disc disease and facet hypertrophy as described in detail in the body of the report. No significant changes seen when compared to the MRI from 01/09/2023. 2. Unchanged postsurgical findings in the lower lumbar spine. Approved by: Mehul Cho M.D. on 05/09/2023 at 13:12
== END ==
PROVIDERS: Family Provider Family Medicine; PCP Family Medicine; Referring Provider Physician Assistant Surgical; Visit Provider Physician Assistant Surgical
DX: M48.062 Spinal stenosis, lumbar region with neurogenic claudication (principal); M51.36 Other intervertebral disc degeneration, lumbar region; M47.816 Spondylosis without myelopathy or radiculopathy, lumbar region
CPT/HCPCS: 72131

== ENCOUNTER → 2023-08-22 16:58 | Outpatient (CLI) | payer OTHER, SELFPAY ==
[2022-11-25 10:58] VITALS: BMI 26.6
--- NOTE | 2023-08-22 | DI.MRI.S_ITS ---
PROCEDURE: MR LUMBAR SPINE WO/W CON INDICATIONS: HISTORY OF LUMBAR FUSION/DISCITIS OF LUMBAR REGION TECHNIQUE: Noncontrast sagittal T1 spin echo and T2 fast echo, sagittal STIR, and T2 fast spin echo through the lumbar spine. In cases with scoliosis, additional coronal T2 fast spin echo may be performed. COMPARISON: [facility], MR, MR LUMBAR SPINE WO/W CON, 02/08/2021, 9:07. [facility], MR, MR LUMBAR SPINE WITH/WITHOUT CONTRAST, 12/09/2020, 13:08. [facility], MR, MR LUMBAR SPINE WITH/WITHOUT CONTRAST, 11/13/2020, 16:31. [facility], CR, XR LUMBAR SPINE 2 OR 3 VIEWS, 08/10/2023, 14:15. [facility], MR, MR LUMBAR SPINE WO/W CON, 01/09/2023, 11:05. [facility], CT, CT LUMBAR SPINE WO CON, 05/09/2023, 6:50. FINDINGS: Image quality: This examination is limited by involuntary motion artifact. There is artifact associated with the metallic hardware. Alignment and Curvature: Mild levoconvex scoliotic curvature is noted. There is mild anterolisthesis seen at the L3-L4 level. Grade 1 retrolisthesis can be seen at L5-S1. Bone Marrow: Marrow is of normal overall signal. No acute vertebral body compression fractures. Spinal Cord: Conus medullaris terminates at the L1 level. Visualized cord demonstrates normal signal and size. Paraspinous Soft Tissues: No paravertebral masses. T12-L1: The disc height and disk signal are relatively well-preserved. Mild disc bulge is seen, which is eccentric to the left. Mild to moderate facet hypertrophy is seen. There is mild left-sided and no right-sided neural foraminal narrowing. Mild central canal narrowing is seen. Stable from the prior study. L1-L2: The disc height and disk signal are relatively well-preserved. Mild disc bulge is seen, which is eccentric to the left. Mild facet joint hypertrophy is seen. No significant neural foraminal narrowing is seen. Minimal central canal narrowing is seen. Stable from the prior study. L2-L3: At least moderate loss of disc height and disc signal can be seen. Moderate generalized disc bulge is seen. At least moderate facet hypertrophy can be seen. Mild bilateral neural foraminal narrowing is seen. Moderate central canal narrowing is seen. On the left, there is again seen an apparent perineural cysts, without definite enhancement. L3-L4: At least moderate loss of disc height and disc signal can be seen on the right side. Bridging endplate osteophytes are seen on the right, as on series 2, image 6. Moderate disc bulge is seen, which is eccentric to the right. Moderate facet joint hypertrophy is seen. There is at least moderate right-sided neural foraminal narrowing can with a degree of compression upon the exiting right L3 nerve root. No significant left-sided neural foraminal narrowing is seen. Moderate central canal narrowing is seen. Stable from the prior study. L4-L5: Moderate to severe loss of disc height and disc signal can be seen. There is a degree of vertebral body fusion at this level. Mild to moderate disc bulge is seen. Moderate facet joint hypertrophy is seen. There has been removal of portions of the posterior elements. There is mild right-sided and no left-sided neural foraminal narrowing. No central canal narrowing is seen. Stable from the prior study. L5-S1: Postoperative change is seen at this level, with bilateral pedicle screws and vertical fixation rods. There is an anteriorly placed fixation device seen at this level. There has been removal of portions of the posterior elements. Moderate bilateral neural foraminal narrowing is seen. No central canal narrowing is seen. This level is overall mildly improved compared to the prior examination. IMPRESSION: Since the prior MRI, there is been postoperative change at the L5-S1 level, with overall mild improvement at this level compared to the prior. Multiple levels of degenerative change can be seen elsewhere, which appear stable. No abnormal enhancement is seen. Dictated by: Lewis Driscoll M.D. on 08/23/2023 at 10:02 Approved by: Lewis Driscoll M.D. on 08/23/2023 at 10:11
--- OUTSIDE RECORDS SUMMARY | 2023-09-02 15:14 | XMS_ITS | Referral Summary ---
Author Name Unknown Organization [facility] Address [address] [place] [id number] Care Team Providers Care Rn Managed Care Name Role Phone Saman Barry Primary Care Provider [phone] Reason for Referral * Consultation (Routine) - Authorized Specialty Diagnoses / Procedures Referred By Contac t Referred To Contact Physical Therapy Diagnoses Scoliosis of lumbar spine, unspecified scoliosis type Arthritis of left hip Toby Truong MD [address] [place] [id number] [address] Referral ID Status Reason Start Date Expiration Date Visits Requested Visits Authorized [id number] Authorized Specialty Services Required 01/18/2023 01/13/2024 1 1 Reason for Visit * Reason Onset Date Comments Referral 01/06/2023 Fax to [facility] al physical therapy/appt 01/06/2023 Encounter Details Date Type Department Care Team Description 01/06/2023 Telephone [facility] [place] [address] [place] [phone] Toby Truong MD [address] [place] [id number] Referral (Fax to hospital ); physical therapy/appt Allergies Active Allergy Reactions Severity Noted Date Comments Chlorhexidine Rash Medium 12/12/2019 Oxycodone Nausea And Vomiting Medium 12/12/2019 States tolerates hydrocodone documented as of this encounter (statuses as of 01/18/2023) Medications Medication Sig Dispensed Refills Start Date End Date Status diltiazem (TIAZAC) 120 mg 24 hr capsule Take 1 capsule (120 mg total) by mouth 2 (two) times a day 0 11/11/2020 Active ibuprofen (ADVIL) 400 mg tablet 0 10/21/2020 Active Lactobacillus acidophilus 1 billion cell capsule Take 1 capsule by mouth 0 Active collagen, hydrolysate, bovine, (COLLAGEN, HYDR, BOVINE,, BULK, MISC) Take 1 capsule by mouth 2 (two) times a day 0 Active glucosamine-methylsulf onylmeth 750-750 mg tablet Take 1 tablet by mouth every morning 0 Active turmeric 400 mg capsule Take 1 capsule by mouth 2 (two) times a day 0 Active b complex vitamins capsule Take 1 capsule by mouth every morning 0 Active vitamin D3-vitamin K2, MK4, 1,000-100 unit-mcg tablet Take 1 capsule by mouth every morning 0 Active metoprolol tartrate (LOPRESSOR) 25 mg tablet Take 1 tablet (25 mg total) by mouth 2 (two) times a day as needed 0 10/20/2022 Active documented as of this encounter (statuses as of 01/18/2023) Active Problems Problem Noted Date Arthritis of right hip 12/29/2022 Gallstones 03/25/2022 Overview: Added automatically from request for surgery [id number] Change in bowel habits 02/26/2022 Overview: Added automatically from request for surgery [id number] Scoliosis of lumbar spine 03/18/2021 Lymphopenia 12/04/2020 Bacteremia due to Streptococcus 11/13/19 21 Discitis of lumbar region 11/13/2020 Vertebral osteomyelitis, acute documented as of this encounter (statuses as of 01/18/2023) Social History Tobacco Use Types Packs/Day Years Used Date Smoking Tobacco: Never Smokeless Tobacco: Never Alcohol Use Standard Drinks/Week Comments Yes 0 (1 standard drink = 0.6 oz pure alcohol) 1 glass of wine per evening with dinner Alcohol Habits Answer Date Recorded How often do you have a drin k containing alcohol? 4 or more times a week 11/14/2020 How many drinks containing a lcohol do you have on a typical day when you are drinking? 1 or 2 11/14/2020 How often do you have six or more drinks on one occasion? Less than monthly 11/14/2020 Sex Assigned at Date Recorded Not on file Job Start Date Occupation Industry Not on file Not on file Not on file documented as of this encounter Miscellaneous Notes * Addendum Note - Gael Matute MA - 01/18/2023 9:19 AM PDTAddended by: GAEL MATUTE on: 01/18/2023 09:19 AM Modules accepted: Orders * Telephone Encounter - Gael Matute MA - 01/18/2023 9:17 AM PDT Spoke with Dr. Truong he was okay with seeing patient next week or waiting until after injection with Dr. Contreras whatever patient preferred. Call and spoke with patient she decided to wait until after injection - cancelled 01/26 appt and advised to call back and reschedule appt once she has an injection and see her 2-3 weeks post injection. Also referred her to PT for left hip and low back to start anytime. She was happy this plan and appreciated the call. * Telephone Encounter - Gael Matute MA - 01/18/2023 8:33 AM PDT Called and spoke with patient. Her Hip MRI stated possible tears. She is concerned and unsure what next steps are. I advised her I would discuss with Dr. Truong today and try to give her a call later this afternoon with a game plan. She was appreciative and understanding. * Telephone Encounter - Hortensia Gambino - 01/17/2023 3:35 PM PDT Routing to back office, please advise. * Telephone Encounter - Pili Paiz - 01/17/2023 10:34 AM PDT Pt is calling in regards to PT. She would like to know if she should start PT? Will PT help with her tendons on her hip? Dr. Truong went over the MRI results so does she need an appt on 01/26. Please advise [phone] Ok to leave message * Telephone Encounter - Priscilla Mann - 01/10/2023 3:41 PM PDT Patient is calling to schedule her MRI follow up appointment with Dr Truong Warm transferred to frontline * Telephone Encounter - Fallon Lenz - 01/07/2023 11:13 AM PDT This has been corrected and sent to [facility] [phone] * Telephone Encounter - Ken Longo MA - 01/07/2023 9:55 AM PDT Sending to Dr. Truong and Ortho back office as Dr. Truong ordered the MRI and this was sent to [facility]. Please advise if authorization needs to be sent for the Lumbar Spine MRI. Sending as urgent aspatient is scheduled for Tuesday. * Telephone Encounter - Priscilla Lafleur - 01/07/2023 8:48 AM PDT Pt called regarding request. She states [facility] received the left hip but they are missing the Lumbar authorization. Pt is currently scheduled for Tuesday. Please send as soon as possible Questions/Advise: [phone] (home) [phone] (work) Ok to leave detailed message * Telephone Encounter - Fallon Lenz - 01/06/2023 2:25 PM PDT This request has been fulfilled and faxed to [facility] @ [phone] * Telephone Encounter - Brown Fitzpatrick - 01/06/2023 10:42 AM PDT Patient calling to have her MRI orders for Lumbar and Left hip sent to [facility] Please call when done, hoping to have this done today [phone] Ok to leave a detailed message documented in this encounter Plan of Treatment Upcoming Encounters Date Type Specialty Care Team Description 02/02/2023 Office Visit Pain Medicine Ben Williamson, DO [address] [place] [address] Scheduled Referrals Name Type Priority Associated Diagnoses Orde r Schedule XTRNL Referral to Physical Therapy Outpatient Referral Routine Scoliosis of lumbar spine, unspecified scoliosis type Arthritis of left hip 1 Occurrences starting 01/18/2023 until 01/19/2024 documented as of this encounter Visit Diagnoses Diagnosis Discitis of lumbar region- Primary Other and unspecified disc disorder of lumbar region Scoliosis of lumbar spine, unspecified scoliosis type Arthritis of right hip Arthritis of left hip documented in this encounter Insurance Payer Benefit Plan / Group Subscriber ID Effective Dates Phone Address Type [facility] [id number] 2019-Present [phone] [address] [address] [place] [address] documented as of this encounter Advance Directives Latest Code Status on File Code Status Date Activated Date Inactivated Comments Full Code 04/28/2022 7:26 AM 04/28/2022 11:26 AM Code Status History Code Status Date Activated Date Inactivated Comments Full Code 11/13/2020 2:50 PM 11/15/2020 5:49 PM Care Teams Rn Managed Care Relationship Specialty Start Date End Date Saman Barry [address] [address] PCP - General 05/04/17 documented as of this encounter
== END ==
PROVIDERS: Family Provider Family Medicine; PCP Family Medicine; Referring Provider Orthopaedic Surgery; Visit Provider Orthopaedic Surgery
DX: M47.816 Spondylosis without myelopathy or radiculopathy, lumbar region (principal); M46.46 Discitis, unspecified, lumbar region; Z98.1 Arthrodesis status
CPT/HCPCS: 72158; A9579

== ENCOUNTER → 2023-08-29 11:31 | Outpatient (CLI) | payer OTHER, SELFPAY ==
[2022-11-25 10:58] VITALS: BMI 26.6
== END ==
PROVIDERS: Family Provider Family Medicine; PCP Family Medicine; Referring Provider Family Medicine; Visit Provider Family Medicine
DX: Z23 Encounter for immunization (principal)
CPT/HCPCS: 90471; 90686

== ENCOUNTER → 2023-10-07 07:08 | Outpatient (CLI) | payer OTHER, SELFPAY ==
[2022-11-25 10:58] VITALS: BMI 26.6
[2023-10-07 08:53] LABS: Add Manual Diff / Slide Review NO; Basophils Absolute Auto 0 /uL (0-100); Basophils Percent Auto 0.6 % (0-2); Eosinophils Absolute Auto 100 /uL (0-450); Eosinophils Percent Auto 2.3 % (2-4); Hematocrit 40.3 % (36-46); Hemoglobin 13.4 g/dL (12.0-16.0); Lymphocytes Absolute Auto 1000 /uL (1100-4500); Lymphocytes Percent Auto 31.7 % (25-40); Mean Corpuscular HGB Conc 33.3 % (30-36); Mean Corpuscular Hemoglobin 29.4 PG (26-34); Mean Corpuscular Volume 88.4 fL (80-100); Monocytes Absolute Auto 300 /uL (0-900); Monocytes Percent Auto 8.5 % (3-14); Neutrophils Absolute Auto 1800 /uL (1500-7000); Neutrophils Percent Auto 56.9 % (50-75); Platelet Count 220 X10^3/uL (150-400); Red Blood Cell Count 4.56 X10^6/uL (4.0-5.2); Red Cell Distribution Width 14.7 % (11.6-14.8); White Blood Cell Count 3.2 X10^3/uL (4.5-11.0)
[2023-10-07 08:54] LABS: Hemoglobin A1C% w Est Avg Glu 5.6 % (4.0-6.0)
[2023-10-07 09:00] LABS: Alanine Aminotransferase 15 IU/L (<35); Albumin 4.4 g/dL (3.5-5.0); Albumin Globulin Ratio 1.6 (1.0-2.8); Alkaline Phosphatase 46 U/L (38-126); BUN Creatinine Ratio 31.6 (6-22); Bilirubin Total 0.9 mg/dL (0.2-1.3); Blood Urea Nitrogen 18 mg/dL (7-17); Calcium 9.1 mg/dL (8.4-10.2); Carbon Dioxide 28 mmol/L (22-32); Chloride 102 mmol/L (98-107); Cholesterol 237 mg/dL (140-199); Estimated Glomerular Filt Rate > 60 mL/min (>60); Globulin 2.8 g/dL (1.7-4.1); Glucose 96 mg/dL (70-100); HDL Cholesterol 74 mg/dL (40-60); HEMOLYSIS < 15 (0-50); LDL Cholesterol Calculated 144 mg/dL (<100); Potassium 4.2 mmol/L (3.4-5.1); Sodium 138 mmol/L (137-145); Total Protein 7.2 g/dL (6.3-8.2); Triglycerides 95 mg/dL (35-150)
[2023-10-07 15:17] LABS: Aspartate Aminotransferase 23 IU/L (14-36)
== END ==
PROVIDERS: Family Provider Family Medicine; PCP Family Medicine; Referring Provider Family Medicine; Visit Provider Family Medicine
DX: C43.9 Malignant melanoma of skin, unspecified (principal); E66.9 Obesity, unspecified
CPT/HCPCS: 36415; 80053; 80061; 83036; 84443; 85025

== ENCOUNTER → 2024-04-27 07:13 | Outpatient (CLI) | payer OTHER, SELFPAY ==
[2022-11-25 10:58] VITALS: BMI 26.6
--- NOTE | 2024-04-27 07:14 | DI.MG.S_ITS ---
BILATERAL DIGITAL SCREENING MAMMOGRAM 3D/2D WITH CAD: 04/27/2024 CLINICAL: Routine screening. Family history of breast cancer. Comparison is made to exams dated: 04/15/2023 mammogram, 04/14/2022 mammogram, 04/08/2021 mammogram, and 03/03/2020 mammogram - [facility]. Both breasts are heterogeneously dense, which may obscure small masses (category c / 51-75% glandular tissue). Current study was also evaluated with a Computer Aided Detection (CAD) system. There are benign post operative findings in the left breast. No significant masses, calcifications, or other findings are seen in either breast. There has been no significant interval change. IMPRESSION: BENIGN There is no mammographic evidence of malignancy. A 1 year screening mammogram is recommended. Based on Tyrer-Cuzick model (a risk assessment model), the patient's lifetime risk is 41.0% and her 10 year risk is 18.9%. If a patient has an elevated risk, a more comprehensive evaluation should be considered and/or a referral to a genetic counselor. The [employer], [employer], and NCCN Guidelines advise the consideration of Breast MRI as an adjunct to screening mammography in patients whose Lifetime risk to develop breast cancer is 20% or higher. This exam was interpreted at Station ID: [id number]. NOTE: For mammograms, a report in lay terms will be sent to the patient. Approximately 15% of breast malignancies will not be visualized mammographically. In the management of a palpable breast mass, a negative mammogram must not discourage biopsy of a clinically suspicious lesion. Electronically Signed By: Ranjit Bennett M.D. slc/:04/27/2024 10:03:11 letter sent: Normal Exam ACR BI-RADS Category 2: Benign Finding(s) 3342F
== END ==
PROVIDERS: Family Provider Family Medicine; PCP Family Medicine; Referring Provider Family Medicine; Visit Provider Family Medicine
DX: Z12.31 Encounter for screening mammogram for malignant neoplasm of breast (principal); Z80.3 Family history of malignant neoplasm of breast; R92.333 Mammographic heterogeneous density, bilateral breasts
CPT/HCPCS: 77063; 77067

== ENCOUNTER 2024-07-26 04:35 | Emergency (ER) | payer OTHER, SELFPAY ==
[2022-11-25 10:58] VITALS: BMI 26.6
[2024-07-26] VITALS (7 sets, daily range): BP systolic 105–117; BP diastolic 64–79; PULSE 81–158; RESP 13–26; TEMP 37; O2SAT 95–98; BMI 25.2
--- NOTE | 2024-07-26 04:40 | ED_ITS ---
HPI - Arrhythmia/Palpitations General Chief Complaint: Arrhythmia/Palpitations Stated Complaint: rapid heart rate had heart surgery 6 weeks ago Time Seen by Provider: 07/26/24 04:40 History of Present Illness HPI narrative: 59-year-old female with complex cardiac history, status post ligation of RCA aneurysm fistula, also status post ligation to fistulas arising from the circumflex artery, done in the same procedure 06/13/[address] 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 Helm. Patient has been on midodrine, with dose reduction last week 10 mg 3 times daily down to 5 mg twice daily, and the addition of Toprol 12.5 mg once nightly. She felt palpitations and fast heart rate sensation again this morning that awakened her from sleep. No shortness of breath. No syncope or presyncope symptoms. No fevers or chills or cough illness symptoms. No nausea or vomiting. No diarrhea. No other change in medications. Related Data Home Medications Medication Instructions Recorded Confirmed aspirin 81 mg tablet,delayed 81 mg PO DAILY 04/07/23 07/26/24 release clopidogrel 75 mg tablet 75 mg PO DAILY 07/26/24 07/26/24 colchicine 0.6 mg tablet 0.6 mg PO DAILY 07/26/24 07/26/24 metoprolol tartrate 25 mg tablet 12.5 mg PO BEDTIME 07/26/24 07/26/24 midodrine 5 mg tablet 5 mg PO BID 07/26/24 07/26/24 Previous Rx's Medication Instructions Recorded cyclobenzaprine 10 mg tablet 10 mg PO TID #60 tabs 07/09/24 Allergies Allergy/AdvReac Type Severity Reaction Status Date / Time chlorhexidine [CHLORHEXIDINE] Allergy Intermediate RASH Verified 07/09/24 13:33 oxycodone [OXYCODONE] Allergy Intermediate NAUSEA/DIZZ Verified 07/09/24 13:33 INESS Review of Systems Review of Systems Narrative: see HPI Patient History Medical History (Updated 07/26/24 @ 05:13 by Kalyan Fairchild MD) Obesity Diskitis Acute viral syndrome Insomnia Obstructive sleep apnea Snoring (09/07/11) Thoracic back pain Kidney stones Degenerative disc disease, cervical Palpitations (09/07/11) Surgical History (Updated 11/30/22 @ 20:14 by Nia Lao PA-C) History of cholecystectomy H/O melanoma excision History of spinal fusion History of left salpingo-oophorectomy (2008) Status post vaginal hysterectomy History of bilateral salpingo-oophorectomy (BSO) Family History Family/Other Dementia Father Loud snoring Hypertension Heart disease Alcohol abuse Mother Loud snoring Alcohol abuse Family/Other Depression Bipolar disorder Social History marital status: household members: spouse Smoking Status: Never smoker alcohol intake: current substance use type: does not use Smoking Status: Never smoker alcohol intake frequency: 0-2 drinks per day Substance Use Type: does not use Exam Narrative Exam Narrative: GENERAL: Well-developed patient, in mild distress. HEAD: Atraumatic. Normocephalic. EYES: Pupils equal round and reactive. Extraocular motions intact. No scleral icterus. No injection or drainage. ENT: Nose without bleeding, purulent drainage. Throat without erythema, tonsillar hypertrophy or exudate. Airway patent. NECK: Trachea midline. Non tender CARDIOVASCULAR: Fast rate regular rhythm without murmurs, gallops, or rubs. RESPIRATORY: Clear to auscultation. Breath sounds equal bilaterally. No wheezes, rales, or rhonchi. GASTROINTESTINAL: Abdomen soft, non-tender, nondistended. EXTREMITIES: No edema or joint tenderness. BACK: Nontender without deformity or crepitance. No flank tenderness. NEURO: AOx3. Motor functions grossly nonfocal SKIN: No rash or erythema of visible areas Initial Vital Signs Initial Vital Signs: Vital Signs Temperature 98.6 F 07/26/24 04:41 Pulse Rate 158 H 07/26/24 04:41 Respiratory Rate 16 07/26/24 04:41 Blood Pressure 116/79 07/26/24 04:41 Pulse Oximetry 97 07/26/24 04:41 Oxygen Delivery Method Room Air 07/26/24 04:41 Const General: diaphoretic Course Orders Ordered: ED Orders 07/26/24 04:45 XR chest 1V Stat EKG-12 Lead Stat 07/26/24 05:01 Complete Blood Count AUTO DIFF Stat Comprehensive Metabolic Panel Stat Lipase Stat Troponin & CK Cardiac Panel Stat Vital Signs Vital signs: Vital Signs - 8 hr 07/26/24 04:41 07/26/24 04:50 07/26/24 04:51 Temperature 98.6 F Pulse Rate 158 H 153 H Respiratory Rate 16 26 H Blood Pressure 116/79 116/73 Pulse Oximetry 97 97 Oxygen Delivery Method Room Air 07/26/24 04:51 07/26/24 05:00 07/26/24 05:00 Temperature Pulse Rate 153 H 88 Respiratory Rate 14 13 Blood Pressure 117/68 Pulse Oximetry 98 97 Oxygen Delivery Method Room Air 07/26/24 05:15 07/26/24 05:15 07/26/24 05:30 Temperature Pulse Rate 84 Respiratory Rate 15 Blood Pressure 108/64 106/69 Pulse Oximetry 95 Oxygen Delivery Method Room Air 07/26/24 05:30 07/26/24 05:45 07/26/24 05:45 Temperature Pulse Rate 86 81 Respiratory Rate 19 21 Blood Pressure 105/67 Pulse Oximetry 96 96 Oxygen Delivery Method MDM - Arrhythmia/Palpitations Lab Data Attestation: I reviewed the patient's lab results. Lab results narrative: Unremarkable CBC, CMP, LFTs, electrolytes. 07/26/24 05:01 07/26/24 05:01 Labs: Lab Results 07/26/24 Range/Units 05:01 WBC 3.5 L (4.5-11.0) X10^3/uL RBC 4.14 (4.0-5.2) X10^6/uL Hgb 12.5 (12.0-16.0) g/dL Hct 37.9 (36-46) % MCV 91.7 (80-100) fL MCH 30.3 (26-34) PG MCHC 33.0 (30-36) % RDW 14.5 (11.6-14.8) % Plt Count 295 (150-400) X10^3/uL Neut % (Auto) 57.6 (50-75) % Lymph % (Auto) 30.0 (25-40) % Frio % (Auto) 9.1 (3-14) % Eos % (Auto) 2.7 (2-4) % Baso % (Auto) 0.6 (0-2) % Neut # (Auto) 2000 (2034-6591) /uL Lymph # (Auto) 1000 L (6183-0100) /uL Frio # (Auto) 300 (0-900) /uL Eos # (Auto) 100 (0-450) /uL Baso # (Auto) 0 (0-100) /uL Sodium 141 (137-145) mmol/L Potassium 4.4 (3.4-5.1) mmol/L Chloride 106 (98-107) mmol/L Carbon Dioxide 27 (22-32) mmol/L BUN 13 (7-17) mg/dL Creatinine 0.55 (0.52-1.04) mg/dL Estimated GFR > 60 (>60) mL/min BUN/Creatinine Ratio 23.6 H (6-22) Glucose 99 (80-110) mg/dL Calcium 9.5 (8.4-10.2) mg/dL Total Bilirubin 0.9 (0.2-1.3) mg/dL AST 24 (14-36) IU/L ALT 12 (<35) IU/L Alkaline Phosphatase 58 (38-126) U/L Total Creatine Kinase 62 (30-135) U/L Troponin I < 0.012 (0.01-0.034) ng/mL Total Protein 7.6 (6.3-8.2) g/dL Albumin 4.6 (3.5-5.0) g/dL Globulin 3.0 (1.7-4.1) g/dL Albumin/Globulin Ratio 1.5 (1.0-2.8) Lipase 130 (23-300) U/L ECG Data Attestation: I personally reviewed and interpreted this ECG as follows: Interpretation: Normal sinus rhythm with rate 84, no obvious ST segment elevation or depression changes. T-wave inversion noted in lead 3, flat in lead F, upright in lead 2. RI 156, QRS 76, QTC 423. 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 Recent dose change midodrine last week, reduction in dose, with the addition of metoprolol 12.5 mg long-acting nightly dose, now with palpitations and fast heart rate sensation that woke her up from sleep this morning, still present on arrival. SVT with rate 150 noted, systolic blood pressure 115, consider vagal maneuvers, consider IV push adenosine trial. Chest x-ray. Impressions: ?Mild cardiomegaly. Post median sternotomy. No evidence of heart failure. ? See teleradiology report Printed copy of her normal sinus rhythm EKG provided, also copy of her PSVT rhythm strip provided for discharge, to bring to her Cardiology follow up visit. Patient had conversion of her SVT to normal sinus rhythm, ventricular response rate 80-90, shortly after IV placement, possible vagal response. We will send labs to check electrolytes. Consider contacting her bullet lubricant mixer Dr. Helm later this morning during regular hours, could consider increase metoprolol dosing 12.5 mg once nightly to 12.5 mg twice daily, patient will discuss further with her cardiology team. Discharge Plan Departure Patient Disposition: Home Clinical Impression: Paroxysmal supraventricular tachycardia Instructions: DI for Paroxysmal Supraventricular Tachycardia Activity Restrictions/Additional Instructions: History of SVT, prior aneurysmal fistula ligations to RCA and circumflex arteries last month at [facility], recent reduction and midodrine dose, new additional metoprolol 12.5 mg nightly, with palpitation fast heart rate symptoms that we will keep from sleep this morning. SVT on monitor, heart rate 150s, blood pressure adequate. Before any other treatments done, you spontaneously converted to normal sinus rhythm, or perhaps had vagal response to IV placement and lab draws. Screening labs sent, unremarkable. Consider increased dose metoprolol, discussed with your bullet lubricant mixer Dr. Helm later today during regular clinic hours. Follow up with your cardiology team and [facility] as planned. Return to this/nearest emergency department for any change worsening symptoms or any concerns prior Prescriptions: No Action aspirin 81 mg tablet,delayed release (DR/EC) 81 mg PO DAILY cyclobenzaprine 10 mg tablet 10 mg PO TID Qty: 60 0RF clopidogrel 75 mg tablet 75 mg PO DAILY metoprolol tartrate 25 mg Tablet 12.5 mg PO BEDTIME midodrine 5 mg Tablet 5 mg PO BID colchicine 0.6 mg tablet 0.6 mg PO DAILY Referrals: Saman Barry MD [Primary Care Provider] - Stand Alone Forms: Patient Portal/API
--- NOTE | 2024-07-26 04:45 | DI.RAD.S_ITS ---
PROCEDURE: XR CHEST 1V INDICATIONS: chest pain TECHNIQUE: One view of the chest was acquired. COMPARISON: [facility], , XR CHEST FOR PICC 1V, 10/20/2020, 10:58. FINDINGS: Surgical changes and devices: Median sternotomy wires are seen. Surgical clips are noted in right axilla. Lungs and pleura: Lungs are clear. No pleural effusions or pneumothorax. Mediastinum: Mediastinal contours appear normal. Heart size is enlarged. Bones and chest wall: No suspicious bony lesions. Overlying soft tissues appear unremarkable. IMPRESSION: No acute cardiopulmonary pathology. Dictated by: Vincent Valle M.D. on 07/26/2024 at 8:12 Approved by: Vincent Valle M.D. on 07/26/2024 at 8:13
--- NOTE | 2024-07-26 05:09 | EKG_ITS ---
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
[2024-07-26 05:18] LABS: Add Manual Diff / Slide Review NO; Basophils Absolute Auto 0 /uL (0-100); Basophils Percent Auto 0.6 % (0-2); Eosinophils Absolute Auto 100 /uL (0-450); Eosinophils Percent Auto 2.7 % (2-4); Hematocrit 37.9 % (36-46); Hemoglobin 12.5 g/dL (12.0-16.0); Lymphocytes Absolute Auto 1000 /uL (1100-4500); Mean Corpuscular Hemoglobin 30.3 PG (26-34); Mean Corpuscular Volume 91.7 fL (80-100); Monocytes Absolute Auto 300 /uL (0-900); Monocytes Percent Auto 9.1 % (3-14); Neutrophils Absolute Auto 2000 /uL (1500-7000); Neutrophils Percent Auto 57.6 % (50-75); Platelet Count 295 X10^3/uL (150-400); Red Blood Cell Count 4.14 X10^6/uL (4.0-5.2); Red Cell Distribution Width 14.5 % (11.6-14.8); White Blood Cell Count 3.5 X10^3/uL (4.5-11.0)
[2024-07-26 05:31] LABS: Alanine Aminotransferase 12 IU/L (<35); Albumin 4.6 g/dL (3.5-5.0); Albumin Globulin Ratio 1.5 (1.0-2.8); Alkaline Phosphatase 58 U/L (38-126); Aspartate Aminotransferase 24 IU/L (14-36); BUN Creatinine Ratio 23.6 (6-22); Bilirubin Total 0.9 mg/dL (0.2-1.3); Blood Urea Nitrogen 13 mg/dL (7-17); Calcium 9.5 mg/dL (8.4-10.2); Carbon Dioxide 27 mmol/L (22-32); Chloride 106 mmol/L (98-107); Creatine Kinase 62 U/L (30-135); Estimated Glomerular Filt Rate > 60 mL/min (>60); Glucose 99 mg/dL (80-110); HEMOLYSIS 48 (0-50); Lipase 130 U/L (23-300); Potassium 4.4 mmol/L (3.4-5.1); Sodium 141 mmol/L (137-145); Total Protein 7.6 g/dL (6.3-8.2)
[2024-07-26 05:42] LABS: Troponin I < 0.012 ng/mL (0.01-0.034)
== END 2024-07-26 06:05 | disposition home or self-care (01) ==
PROVIDERS: Emergency Provider Emergency Medicine; Family Provider Family Medicine; PCP Family Medicine
DX: I47.10 Supraventricular tachycardia, unspecified (principal); R07.9 Chest pain, unspecified; I25.41 Coronary artery aneurysm
CPT/HCPCS: 36415; 71045; 80053; 82550; 83690; 84484; 85025; 93005; 99283; 99284

== ENCOUNTER 2024-08-09 14:15 | Outpatient (RCR) | payer OTHER, SELFPAY ==
[2022-11-25 10:58] VITALS: BMI 26.6
== END 2024-08-09 16:15 ==
LOC: CAR 14:15
PROVIDERS: Family Provider Family Medicine; PCP Family Medicine; Referring Provider Internal Medicine Cardiovascular Disease; Visit Provider Internal Medicine Cardiovascular Disease
DX: Z95.1 Presence of aortocoronary bypass graft (principal); Z98.890 Other specified postprocedural states
CPT/HCPCS: 93798

== ENCOUNTER 2024-09-16 09:51 | Emergency (ER) | payer OTHER, SELFPAY ==
[2022-11-25 10:58] VITALS: BMI 26.6
[2024-09-16] VITALS (8 sets, daily range): BP systolic 109–144; BP diastolic 70–71; PULSE 66–82; RESP 19–21; TEMP 36.6–37; O2SAT 95–100; BMI 25.9
--- NOTE | 2024-09-16 09:59 | EKG_ITS ---
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
--- NOTE | 2024-09-16 10:08 | ED.CHESTPAIN ---
HPI - Chest Pain General Chief Complaint: Chest Pain Stated Complaint: muscoloskeletal chest px Time Seen by Provider: 09/16/24 10:01 History of Present Illness HPI narrative: Patient is a 59-year-old female history of SVT with history of status post ligation of RCA aneurysm fistula is status post ligation of fistulas arising from the circumflex artery and CABG x1 on 06/13/[address] Zepeda that [facility] in [place] followed by [facility] Dr. Helm presents today with left-sided chest pain. She reports that since then she has had some ongoing chest pain which he says it is incisional pain. However yesterday it was more on left side it seemed a little bit worse. It does hurt when she touches when she breathes and when she bends over. She is on aspirin and Plavix although she did not take it today she did take 1 dose of ibuprofen yesterday. She denies any sort of shortness of breath fever chills no leg swelling. Pain is definitely reproducible to palpation. She reports that she has been healing well has been active. She was seen in the ED 07/26/2024 for an episode of SVT Related Data Home Medications Medication Instructions Recorded Confirmed aspirin 81 mg tablet,delayed 81 mg PO DAILY 04/07/23 07/26/24 release clopidogrel 75 mg tablet 75 mg PO DAILY 07/26/24 07/26/24 colchicine 0.6 mg tablet 0.6 mg PO DAILY 07/26/24 07/26/24 metoprolol tartrate 25 mg tablet 12.5 mg PO BEDTIME 07/26/24 07/26/24 midodrine 5 mg tablet 5 mg PO BID 07/26/24 07/26/24 Previous Rx's Medication Instructions Recorded cyclobenzaprine 10 mg tablet 10 mg PO TID #60 tabs 07/09/24 hydrocodone 5 mg-acetaminophen 325 1 tab PO Q6H PRN pain #10 tabs 09/16/24 mg tablet Allergies Allergy/AdvReac Type Severity Reaction Status Date / Time chlorhexidine [CHLORHEXIDINE] Allergy Intermediate RASH Verified 09/16/24 10:11 oxycodone [OXYCODONE] Allergy Intermediate NAUSEA/DIZZ Verified 09/16/24 10:11 INESS Patient History Medical History (Updated 09/16/24 @ 12:47 by Tita Garcia DO) Obesity Diskitis Acute viral syndrome Insomnia Obstructive sleep apnea Snoring (09/07/11) Thoracic back pain Kidney stones Degenerative disc disease, cervical Palpitations (09/07/11) Surgical History (Updated 11/30/22 @ 20:14 by Nia Lao PA-C) History of cholecystectomy H/O melanoma excision History of spinal fusion History of left salpingo-oophorectomy (2008) Status post vaginal hysterectomy History of bilateral salpingo-oophorectomy (BSO) Family History Family/Other Dementia Father Loud snoring Hypertension Heart disease Alcohol abuse Mother Loud snoring Alcohol abuse Family/Other Depression Bipolar disorder Social History marital status: household members: spouse Smoking Status: Never smoker alcohol intake: current substance use type: does not use Smoking Status: Never smoker alcohol intake frequency: 0-2 drinks per day Exam Initial Vital Signs Initial Vital Signs: Vital Signs Pulse Rate 66 09/16/24 10:00 GENERAL: Alert well-appearing 59-year-old female and in [no acute] distress. HEENT: Head atraumatic,EOMI, pupils reactive, face symmetric, [moist] mucous membranes CARDIOVASCULAR: Regular rate and rhythm without murmurs, rubs or gallops. Pain reproducible on left side between ribs no rash or vesicles seen RESPIRATORY: Breath sounds equal bilaterally, no wheezes rales or rhonchi. ABDOMEN: Soft, nontender. Normoactive bowel sounds all 4 quadrants. No guarding or rebound. EXTREMITIES: Normal range of motion, no clubbing or edema. Neurovascularly intact NEUROLOGICAL: Alert and oriented x4.Normal gait and speech. Cranial nerves II through XII grossly intact. SKIN: Warm, dry, no laceration, no petechiae, no rashes or lesions. Course Orders Ordered: ED Orders 09/16/24 10:08 Complete Blood Count AUTO DIFF Stat Comprehensive Metabolic Panel Stat D Dimer Stat Lipase Stat NT-proBNP (BNP-Adult 18+) Stat Troponin & CK Cardiac Panel Stat 09/16/24 10:09 EKG-12 Lead Stat 09/16/24 10:11 XR chest 2V Stat 09/16/24 12:05 Trop I [Troponin I] Stat Discontinued Medications Ketorolac Tromethamine (Ketorolac 30 Mg/Ml Vial) 15 mg IV NOW ONE Stop: 09/16/24 10:10 Last Admin: 09/16/24 10:29 Dose: 15 mg Documented By: JOHN Vital Signs Vital signs: Vital Signs - 8 hr 09/16/24 10:00 09/16/24 10:11 09/16/24 10:30 Temperature 97.9 F Pulse Rate 66 82 75 Respiratory Rate 19 Blood Pressure 144/71 H Pulse Oximetry 95 97 Oxygen Delivery Method Room Air 09/16/24 11:00 09/16/24 11:30 09/16/24 12:00 Temperature Pulse Rate 72 71 69 Respiratory Rate 21 19 Blood Pressure Pulse Oximetry 96 98 98 Oxygen Delivery Method 09/16/24 12:30 09/16/24 12:55 Temperature 98.6 F Pulse Rate 67 71 Respiratory Rate 20 19 Blood Pressure 109/70 Pulse Oximetry 100 99 Oxygen Delivery Method Room Air MDM - Chest Pain Lab Data 09/16/24 10:08 09/16/24 10:08 Labs: Lab Results 09/16/24 09/16/24 Range/Units 10:08 12:05 WBC 7.2 (4.5-11.0) X10^3/uL RBC 4.39 (4.0-5.2) X10^6/uL Hgb 13.1 (12.0-16.0) g/dL Hct 39.7 (36-46) % MCV 90.3 (80-100) fL MCH 29.9 (26-34) PG MCHC 33.1 (30-36) % RDW 15.4 H (11.6-14.8) % Plt Count 266 (150-400) X10^3/uL Neut % (Auto) 67.6 (50-75) % Lymph % (Auto) 21.5 L (25-40) % [place] % (Auto) 9.7 (3-14) % Eos % (Auto) 0.8 L (2-4) % Baso % (Auto) 0.4 (0-2) % Neut # (Auto) 4900 (9475-6891) /uL Lymph # (Auto) 1500 (0989-2364) /uL [place] # (Auto) 700 (0-900) /uL Eos # (Auto) 100 (0-450) /uL Baso # (Auto) 0 (0-100) /uL D-Dimer 509 H (<500) ng/ml Sodium 138 (137-145) mmol/L Potassium 4.1 (3.4-5.1) mmol/L Chloride 102 (98-107) mmol/L Carbon Dioxide 29 (22-32) mmol/L BUN 12 (7-17) mg/dL Creatinine 0.62 (0.52-1.04) mg/dL Estimated GFR > 60 (>60) mL/min BUN/Creatinine Ratio 19.4 (6-22) Glucose 89 (80-110) mg/dL Calcium 9.5 (8.4-10.2) mg/dL Total Bilirubin 0.8 (0.2-1.3) mg/dL AST 22 (14-36) IU/L ALT 16 (<35) IU/L Alkaline Phosphatase 65 (38-126) U/L Total Creatine Kinase 98 (30-135) U/L Troponin I < 0.012 < 0.012 (0.01-0.034) ng/mL NT-Pro-B Natriuret Pep 510 H (<125) pg/mL Total Protein 7.5 (6.3-8.2) g/dL Albumin 4.5 (3.5-5.0) g/dL Globulin 3.0 (1.7-4.1) g/dL Albumin/Globulin Ratio 1.5 (1.0-2.8) Lipase 84 (23-300) U/L ECG Data Attestation: I personally reviewed and interpreted this ECG as follows: Prior ECG tracings: available for review Interpretation: Normal sinus rhythm rate 70 NV interval 136 QRS 82 QTC 430 T-wave inversion noted in V1 V2 similar to previous no ST elevations similar to prior MDM Narrative Medical decision making narrative: MDM CC: Chest pain Complicating co-morbidities: SVT cardiac surgery 06/13/2024 Data collected from: Previous Records Medical records reviewed: From ED visits here at this hospital Differential considered: Muscular skeletal costochondritis acute coronary syndrome pulmonary embolism Exam documented above, pertinent findings include: Pain reproducible to touch no evidence of rash or injury Lab Test results independently reviewed as above. Pertinent findings: Troponin negative x2 D-dimer 509 WBC 7.2 hemoglobin 13.1 hematocrit 39.7 platelets 266 Electrolytes within normal limits creatinine 0.62 Independently reviewed EKG as above No ischemia similar to previous EKGs Imaging studies independently reviewed: Chest x-ray right basilar atelectasis Treatments: Toradol Re-evaluations: Patient did receive some relief with Toradol. Discussion: 59-year-old female with history of coronary artery disease on aspirin and Plavix presenting today with reproducible left-sided chest pain. She has no injury. She is 2- troponins D-dimer less than 1000 and unlikely to be a PE. She has not short of breath. X-ray shows some right-sided atelectasis does not correlate with left-sided pain. Due to significant reproducibility including movement with arm palpation bending over coughing I do suspect musculoskeletal. She did receive some relief with Toradol. Recommended that she take her aspirin tonight and resume all medications tomorrow. We will give her some [place] for worsening pain. Discharge Plan Departure Patient Disposition: Home Clinical Impression: Costochondritis Instructions: DI for Atypical Chest Pain Activity Restrictions/Additional Instructions: *You have been diagnosed with costochondritis *What to do: At this time I do think this is musculoskeletal pain. Blood work today is overall reassuring chest x-ray did not show any cause of pain. *Continue to take medications as directed [place] 1 tablet every 6 hours if needed for severe pain *Follow up with your primary care provider in 2-3 days or call [phone] *Return to ER if you should have increasing pain shortness of breath [or] any new, worsening or concerning symptoms CONTROLLED SUBSTANCE DISCHARGE (Narcotoic/benzodiazepine/Flexeril/Phenergan) 1. You have been prescribed narcotic medications, it does have acetaminophen/Tylenol/paracetamol in it, DO NOT TAKE MORE THAN 4,00mg in 24 hours of Tylenol. TRAMADOL DOES NOT CONTAIN TYLENOL 2. Please understand that we cannot provide further refills of narcotics, benzodiazepines or controlled substances through the ED and her pain management will need to be through your provider. 3. While on these medications you cannot drive or operate heavy machinery. 4. You cannot sign legal documents or perform any duties such as this. 5. As long as you're taking opiate pain medications he should also be taking a stool softener such as Colace, Dulcolax, MiraLAX or prune juice, to help avoid constipation. Prescriptions: New hydrocodone-acetaminophen 5-325 mg tablet 1 tab PO Q6H PRN (Reason: pain) Qty: 10 0RF No Action aspirin 81 mg tablet,delayed release (DR/EC) 81 mg PO DAILY cyclobenzaprine 10 mg tablet 10 mg PO TID Qty: 60 0RF clopidogrel 75 mg tablet 75 mg PO DAILY metoprolol tartrate 25 mg Tablet 12.5 mg PO BEDTIME midodrine 5 mg Tablet 5 mg PO BID colchicine 0.6 mg tablet 0.6 mg PO DAILY Referrals: Saman Barry MD [Primary Care Provider] - Stand Alone Forms: Patient Portal/API/Survey
--- NOTE | 2024-09-16 10:11 | DI.RAD.S_ITS ---
PROCEDURE: XR CHEST 2V INDICATIONS: chest pain TECHNIQUE: 2 views of the chest were acquired. COMPARISON: [facility], CR, XR CHEST 1V, 07/26/2024, 4:50. [facility], CR, XR CHEST FOR PICC 1V, 10/20/2020, 10:58. FINDINGS: Surgical changes and devices: Median sternotomy wires and surgical clips overlying the mediastinum and left axilla. Lungs and pleura: Lungs are clear. No pleural effusions or pneumothorax. Right basilar atelectasis. Mediastinum: Mediastinal contours are normal. Heart size is normal. Bones and chest wall: No suspicious bony abnormalities. Soft tissues appear unremarkable. IMPRESSION: Right basilar atelectasis without other acute cardiopulmonary process. Dictated by: Elvie Francis M.D. on 09/16/2024 at 9:43 Approved by: Elvie Francis M.D. on 09/16/2024 at 9:44
[2024-09-16 10:23] LABS: Add Manual Diff / Slide Review NO; Basophils Absolute Auto 0 /uL (0-100); Basophils Percent Auto 0.4 % (0-2); D Dimer 509 ng/ml (<500); Eosinophils Absolute Auto 100 /uL (0-450); Eosinophils Percent Auto 0.8 % (2-4); Hematocrit 39.7 % (36-46); Hemoglobin 13.1 g/dL (12.0-16.0); Lymphocytes Absolute Auto 1500 /uL (1100-4500); Lymphocytes Percent Auto 21.5 % (25-40); Mean Corpuscular HGB Conc 33.1 % (30-36); Mean Corpuscular Hemoglobin 29.9 PG (26-34); Mean Corpuscular Volume 90.3 fL (80-100); Monocytes Absolute Auto 700 /uL (0-900); Monocytes Percent Auto 9.7 % (3-14); Neutrophils Absolute Auto 4900 /uL (1500-7000); Neutrophils Percent Auto 67.6 % (50-75); Platelet Count 266 X10^3/uL (150-400); Red Blood Cell Count 4.39 X10^6/uL (4.0-5.2); Red Cell Distribution Width 15.4 % (11.6-14.8); White Blood Cell Count 7.2 X10^3/uL (4.5-11.0)
[2024-09-16 10:27] LABS: Alanine Aminotransferase 16 IU/L (<35); Albumin 4.5 g/dL (3.5-5.0); Albumin Globulin Ratio 1.5 (1.0-2.8); Alkaline Phosphatase 65 U/L (38-126); Aspartate Aminotransferase 22 IU/L (14-36); BUN Creatinine Ratio 19.4 (6-22); Bilirubin Total 0.8 mg/dL (0.2-1.3); Blood Urea Nitrogen 12 mg/dL (7-17); Calcium 9.5 mg/dL (8.4-10.2); Carbon Dioxide 29 mmol/L (22-32); Chloride 102 mmol/L (98-107); Creatine Kinase 98 U/L (30-135); Estimated Glomerular Filt Rate > 60 mL/min (>60); Glucose 89 mg/dL (80-110); HEMOLYSIS < 15 (0-50); Lipase 84 U/L (23-300); Potassium 4.1 mmol/L (3.4-5.1); Sodium 138 mmol/L (137-145); Total Protein 7.5 g/dL (6.3-8.2)
[2024-09-16] MEDS: KETOROLAC 30 MG/ML VIAL 15 MG IV (10:29)
[2024-09-16 10:36] LABS: NT-proBNP (BNP-Adult 18+) 510 pg/mL (<125)
[2024-09-16 10:39] LABS: Troponin I < 0.012 ng/mL (0.01-0.034)
[2024-09-16 12:35] LABS: Troponin I < 0.012 ng/mL (0.01-0.034)
== END 2024-09-16 12:56 | disposition home or self-care (01) ==
PROVIDERS: Emergency Provider Emergency Medicine; Family Provider Family Medicine; PCP Family Medicine
DX: M94.0 Chondrocostal junction syndrome [Tietze] (principal); I25.10 Atherosclerotic heart disease of native coronary artery without angina pectoris; Z95.1 Presence of aortocoronary bypass graft; Z87.19 Personal history of other diseases of the digestive system
CPT/HCPCS: 36415; 71046; 80053; 82550; 83690; 83880; 84484; 85025; 85379; 93005; 96374; 99284; J1885

== ENCOUNTER → 2024-11-26 07:26 | Outpatient (CLI) | payer OTHER, SELFPAY ==
[2022-11-25 10:58] VITALS: BMI 26.6
--- NOTE | 2024-11-26 07:28 | DI.MRI.S_ITS ---
BREAST MRI OF BOTH BREASTS: 11/26/2024 CLINICAL: High risk screening. Family history breast cancer. TECHNIQUE: The patient was placed prone in a dedicated breast imaging coil. Precontrast axial STIR and 3D FLASH without fat saturation sequences were obtained. Both before and after bolus injection of contrast, sequential 1-minute axial 3D FLASH with fat saturation sequences for 3 time points, with subtraction images and maximum intensity projections (MIP's) generated. Delayed sagittal FLASH images with fat saturation were also obtained. Computer-aided detection, including computer algorithm analysis of MRI image data for lesion detection and characterization, pharmacokinetic analysis, with further physician review for interpretation, was performed. COMPARISON: [facility], , SCREENING MAMMO BI, 04/15/2023, 7:37. [facility], SCREENING MAMMO BI, 04/27/2024, 7:49. FINDINGS: Image quality: Excellent. There is minimal bilateral background parenchymal enhancement. Right breast: No suspicious mass or non masslike enhancement. No skin or nipple abnormalities. Left breast: No suspicious mass or non masslike enhancement. No skin or nipple abnormalities. Miscellaneous: Susceptibility artifact from median sternotomy wires. A few small well-circumscribed simple cysts the anterior left hepatic lobe. Visible portion of the chest wall, underlying organs, and axilla appear normal. IMPRESSION: NEGATIVE No MR evidence of malignancy in either breast. Continue annual mammogram and MR screening. BIRADS one, negative COMMENT: The imaging literature indicates that a negative contrast breast MRI examination has a high sensitivity and a moderate specificity for detecting and excluding invasive carcinomas to a detection threshold of 3-5 mm; nonetheless, appropriate clinical and mammographic follow-up are recommended. MRI is not sensitive for detecting DCIS (ductal carcinoma in situ) and may not detect large invasive neoplasms that show only minimal enhancement such as mucinous carcinoma. If there are suspicious calcifications or clinically worrisome palpable masses, then biopsy should still be considered. Invasive neoplasms can be hidden by co-existent and benign enhancement caused by mastitis, hormone therapy effects, radiation therapy, , and recent biopsy or surgery. False positive examinations can occur in a number of circumstances, including breasts that have recently been subject to invasive procedures and those that contain atypical ductal hyperplasia, hormonally stimulated glandular tissue, fat necrosis, or radial scars. This exam was interpreted at Station ID: [id number]. Electronically Signed By: Dayna rice/:11/26/2024 12:59:58 Entry: selena - 11/27/2024 08:54:09 ACR BI-RADS Category 1: Negative
== END ==
PROVIDERS: Family Provider Family Medicine; PCP Family Medicine; Referring Provider Family Medicine; Visit Provider Family Medicine
DX: Z91.89 Other specified personal risk factors, not elsewhere classified (principal); Z12.39 Encounter for other screening for malignant neoplasm of breast; Z80.3 Family history of malignant neoplasm of breast
CPT/HCPCS: 77049; A9579

== ENCOUNTER → 2024-12-26 06:39 | Outpatient (CLI) | payer OTHER, SELFPAY ==
[2022-11-25 10:58] VITALS: BMI 26.6
[2024-12-26 07:41] LABS: Add Manual Diff / Slide Review NO; Basophils Absolute Auto 0 /uL (0-100); Basophils Percent Auto 0.6 % (0-2); Eosinophils Absolute Auto 100 /uL (0-450); Eosinophils Percent Auto 3.5 % (2-4); Hematocrit 40.2 % (36-46); Hemoglobin 13.5 g/dL (12.0-16.0); Lymphocytes Absolute Auto 1300 /uL (1100-4500); Lymphocytes Percent Auto 37.2 % (25-40); Mean Corpuscular HGB Conc 33.7 % (30-36); Monocytes Absolute Auto 200 /uL (0-900); Monocytes Percent Auto 7.3 % (3-14); Neutrophils Absolute Auto 1700 /uL (1500-7000); Neutrophils Percent Auto 51.4 % (50-75); Platelet Count 223 X10^3/uL (150-400); Red Blood Cell Count 4.37 X10^6/uL (4.0-5.2); Red Cell Distribution Width 14.9 % (11.6-14.8); White Blood Cell Count 3.4 X10^3/uL (4.5-11.0)
[2024-12-26 07:47] LABS: Hemoglobin A1C% w Est Avg Glu 5.2 % (4.0-6.0)
[2024-12-26 08:11] LABS: Alanine Aminotransferase 14 IU/L (<35); Albumin 4.4 g/dL (3.5-5.0); Albumin Globulin Ratio 1.8 (1.0-2.8); Alkaline Phosphatase 50 U/L (38-126); Aspartate Aminotransferase 23 IU/L (14-36); BUN Creatinine Ratio 23.1 (6-22); Bilirubin Total 1.2 mg/dL (0.2-1.3); Blood Urea Nitrogen 15 mg/dL (7-17); Carbon Dioxide 26 mmol/L (22-32); Chloride 105 mmol/L (98-107); Estimated Glomerular Filt Rate > 60 mL/min (>60); Globulin 2.4 g/dL (1.7-4.1); Glucose 94 mg/dL (80-110); HEMOLYSIS < 15 (0-50); Potassium 4.1 mmol/L (3.4-5.1); Sodium 138 mmol/L (137-145); Total Protein 6.8 g/dL (6.3-8.2)
[2024-12-26 08:15] LABS: Follicle Stimulating Hormone 68.9 mIU/mL; Progesterone, Total 8.39 ng/mL
[2024-12-26 08:30] LABS: Estradiol, Total 26.5 pg/mL
== END ==
PROVIDERS: Family Provider Family Medicine; PCP Family Medicine; Referring Provider Specialist; Visit Provider Specialist
DX: Z51.81 Encounter for therapeutic drug level monitoring (principal); N95.9 Unspecified menopausal and perimenopausal disorder; R73.09 Other abnormal glucose; E66.3 Overweight
CPT/HCPCS: 36415; 80053; 80061; 82670; 83001; 83036; 84144; 85025

== ENCOUNTER → 2025-01-16 12:10 | Outpatient (CLI) | payer OTHER, SELFPAY ==
[2022-11-25 10:58] VITALS: BMI 26.6
[2025-01-16 12:56] LABS: COVID-19 CEPHEID 4-PLEX PCR Negative (Negative); Influenza A - CEPHEID Flu A NEGATIVE (NEGATIVE); Influenza B - CEPHEID Flu B NEGATIVE (NEGATIVE); Respiratory Syncytial Virus Negative (Negative)
== END ==
PROVIDERS: Family Provider Family Medicine; PCP Family Medicine; Visit Provider Student in an Organized Health Care Education/Training Program
DX: R05.1 Acute cough (principal)
CPT/HCPCS: 0241U

== ENCOUNTER → 2025-01-21 10:39 | Outpatient (CLI) | payer OTHER, SELFPAY ==
[2022-11-25 10:58] VITALS: BMI 26.6
--- NOTE | 2025-01-21 10:39 | DI.RAD.S_ITS ---
PROCEDURE: XR CHEST 2V INDICATIONS: 8d cough TECHNIQUE: 2 views of the chest were acquired. COMPARISON: [facility], CR, XR CHEST 2V, 09/16/2024, 10:11. [facility], CR, XR CHEST 1V, 07/26/2024, 4:50. [facility], CR, XR CHEST FOR PICC 1V, 10/20/2020, 10:58. FINDINGS: Surgical changes and devices: Right upper quadrant surgical clips. Median sternotomy wires. Left axillary surgical clips. Lungs and pleura: Lungs are clear. No pleural effusions or pneumothorax. Mediastinum: Mediastinal contours are normal. Heart size is normal. Bones and chest wall: Mild dextrocurvature of the lower thoracic spine with the apex at T10. No suspicious bony abnormalities. Soft tissues appear unremarkable. IMPRESSION: No acute cardiothoracic process. Dictated by: Eliu Lee M.D. on 01/21/2025 at 10:55 Approved by: Eliu Lee M.D. on 01/21/2025 at 10:56
== END ==
PROVIDERS: Family Provider Family Medicine; PCP Family Medicine; Referring Provider Student in an Organized Health Care Education/Training Program; Visit Provider Student in an Organized Health Care Education/Training Program
DX: J39.8 Other specified diseases of upper respiratory tract (principal); R05.9 Cough, unspecified
CPT/HCPCS: 71046

== ENCOUNTER → 2025-05-02 08:14 | Outpatient (CLI) | payer OTHER, SELFPAY ==
[2022-11-25 10:58] VITALS: BMI 26.6
--- NOTE | 2025-05-02 08:15 | DI.MG.S_ITS ---
MM screening mammo BI: 05/02/2025. BI-RADS: 1 CLINICAL: 60-year old female for bilateral screening mammogram. Tyrer-Cuzick lifetime risk of 21.7%. Current reported family history of breast cancer: maternal grandmother and mother. The patient had a prior left breast biopsy. PRIOR EXAMS: 11/26/2024, 04/27/2024, 04/15/2023, 04/14/2022, 04/08/2021, 03/03/2020, 01/10/2019. MAMMOGRAPHY TECHNIQUE: 2D and 3D (tomosynthesis) digital mammographic views obtained, with additional images as needed for full coverage. Current study was also evaluated with a Computer Aided Detection (CAD) system. DENSITY C. The breasts are heterogeneously dense, which may obscure small masses. MAMMOGRAPHY FINDINGS Bilateral: No suspicious mass, asymmetry, microcalcification, or other abnormality seen. IMPRESSION: * No evidence of malignancy. RECOMMENDATIONS Bilateral * According to the Tyrer-Cuzick Risk Assessment Model, based on the information provided your patient has a greater than 20% lifetime risk for developing breast cancer. Consider supplemental screening with breast MRI and participation in a high risk screening program. * Annual screening mammography. OVERALL ASSESSMENT CATEGORY BI-RADS-1: Negative. The [employer] recommends annual screening mammography beginning at age 40 for women with average risk of breast cancer. ELECTRONICALLY SIGNED: Shital Augustin M.D. on 05/02/2025 at 09:43:02 PM PT Interpreting Station ID: [id number]
== END ==
LOC: MAMMO 08:15
PROVIDERS: Family Provider Family Medicine; PCP Family Medicine; Referring Provider Family Medicine; Visit Provider Family Medicine
DX: Z12.31 Encounter for screening mammogram for malignant neoplasm of breast (principal); Z80.3 Family history of malignant neoplasm of breast; R92.333 Mammographic heterogeneous density, bilateral breasts
CPT/HCPCS: 77063; 77067